=== PATIENT | male | born 1945 | race Caucasian/White ===

== ENCOUNTER → 2018-01-29 07:03 | Outpatient (CLI) | payer MEDICARE, SELFPAY ==
[2018-01-29 10:13] LABS: Absolute Lymphocyte Count 1.83 X10^3/ul (0.83-4.51); Absolute Neutrophil Count 4.4 X10^3/uL (2.0-7.7); Basophil# 0.03 X10^3/uL; Basophil% 0.4 % (0-1); Eosinophil# 0.14 X10^3/uL; Eosinophils% 1.9 % (0-5); Hematocrit 47.9 % (40-54); Hemoglobin 16.2 g/dl (13.0-16.5); Lymphocyte # 1.83 X10^3/ul (4.0); Lymphocyte % 25.3 % (19-41); Mean Corp Hgb Conc 33.8 g/gl (32-36); Mean Corpuscular Hgb 32.1 pg (27.0-32.0); Mean Platelet Vol. 12.4 fl (6.2-12.0); Monocyte# 0.82 X10^3/uL; Monocyte% 11.3 % (0-10); Neutrophil # 4.39 X10^3/uL (2.7-7.7); Neutrophil % 60.8 % (47-70); Platelet Count 173 K/mm3 (150-450); RBC Distribution Width CV 13.6 % (11.6-14.6); RBC Distribution Width SD 46.4 fl (35.1-43.9); Red Blood Count 5.04 M/mm3 (4.6-6.2); White Blood Count 7.2 K/mm3 (4.4-11.0)
[2018-01-29 10:17] LABS: POSITIVE COUNT NO; POSITIVE DIFFERENTIAL NO; POSITIVE MORPHOLOGY NO
[2018-01-29 10:25] LABS: Hemoglobin A1c 7.1 % (4.2-6.3)
[2018-01-29 10:26] LABS: Vitamin D,25 Hydroxy 30.2 ng/mL (29.95-100.01)
[2018-01-29 10:27] LABS: AST(SGOT) 29 U/L (15-37); Alanine Aminotransfer ALT/SGPT 45 U/L (16-61); Albumin, Serum 3.8 g/dL (3.2-5.0); Alkaline Phosphatase 54 U/L (45-117); Anion Gap 9 (5-15); BUN 16 mg/dL (7-18); BUN/Creat Ratio 15.7 RATIO (10-20); Calcium,Total 8.7 mg/dL (8.5-10.1); Chloride 105 mmol/L (98-107); Cholesterol 150 mg/dL (200); Creatinine, Serum 1.02 mg/dL (0.70-1.30); EST Glomerular Filtration Rate 76 mL/min (>60); Est Glom Filt Rate - Afr Amer 92 mL/min (>60); Globulin 3.7 g/dL (2.2-4.2); Glucose 146 mg/dL (74-106); High Density Lipoprotein 49 mg/dL; PSA,Total - Annual Screen 1.16 ng/mL (0.00-4.00); Potassium 4.3 mmol/L (3.5-5.1); Protein, Total 7.5 g/dL (6.4-8.2); Sodium Level 140 mmol/L (136-145); Thyroid Stim Hormone (TSH) 3.17 uIU/mL (0.358-3.74); Triglycerides 115 mg/dL; Very Low Density Lipoprotein 23 mg/dL (5-40)
[2018-01-29 10:35] LABS: Microalbumin,Random Urine 10.1 mg/L (NO RANGE EST.); Microalbumin:Creatinine Ratio 5.1 mg/g CRE (<30 mg/g CRE)
== END ==
PROVIDERS: Family Provider Internal Medicine; PCP Internal Medicine; Visit Provider Internal Medicine
DX: E11.9 Type 2 diabetes mellitus without complications (principal); I25.2 Old myocardial infarction; E78.5 Hyperlipidemia, unspecified; N40.0 Benign prostatic hyperplasia without lower urinary tract symptoms; E55.9 Vitamin D deficiency, unspecified; Z12.5 Encounter for screening for malignant neoplasm of prostate
CPT/HCPCS: 36415; 80053; 80061; 82043; 82306; 82570; 83036; 84153; 84443; 85025; G0103

== ENCOUNTER → 2018-08-21 06:51 | Outpatient (CLI) | payer MEDICARE, SELFPAY ==
[2018-08-21 07:51] LABS: Anion Gap 6 (5-15); BUN 20 mg/dL (7-18); BUN/Creat Ratio 19.8 RATIO (10-20); Calcium,Total 8.4 mg/dL (8.5-10.1); Chloride 107 mmol/L (98-107); Creatinine, Serum 1.01 mg/dL (0.70-1.30); EST Glomerular Filtration Rate 77 mL/min (>60); Est Glom Filt Rate - Afr Amer 93 mL/min (>60); Glucose 110 mg/dL (74-106); Sodium Level 140 mmol/L (136-145)
[2018-08-21 08:17] LABS: Hemoglobin A1c 6.6 % (4.2-6.3)
== END ==
PROVIDERS: Family Provider Internal Medicine; PCP Internal Medicine; Referring Provider Internal Medicine; Visit Provider Internal Medicine
DX: I10 Essential (primary) hypertension (principal); E11.9 Type 2 diabetes mellitus without complications
CPT/HCPCS: 36415; 80048; 83036

== ENCOUNTER → 2018-09-25 06:15 | Outpatient (CLI) | payer MEDICARE, SELFPAY ==
[2018-09-25 07:53] LABS: AST(SGOT) 31 U/L (15-37); Alanine Aminotransfer ALT/SGPT 38 U/L (16-61); Albumin, Serum 3.8 g/dL (3.2-5.0); Alkaline Phosphatase 53 U/L (45-117); Bilirubin, Direct 0.19 mg/dL (0.00-0.30); Cholesterol 155 mg/dL (200); Globulin 3.8 g/dL (2.2-4.2); High Density Lipoprotein 52 mg/dL; Protein, Total 7.6 g/dL (6.4-8.2); Triglycerides 102 mg/dL; Very Low Density Lipoprotein 20 mg/dL (5-40)
== END ==
PROVIDERS: Family Provider Internal Medicine; PCP Internal Medicine; Referring Provider Nurse Practitioner Family; Visit Provider Nurse Practitioner Family
DX: E78.5 Hyperlipidemia, unspecified (principal)
CPT/HCPCS: 36415; 80061; 80076

== ENCOUNTER → 2019-08-21 | Outpatient (CLI) | payer MEDICARE, SELFPAY ==
[2019-04-24 08:07] VITALS: BMI 31.8
[2019-08-21 12:41] LABS: Absolute Lymphocyte Count 1.78 X10^3/uL (0.83-4.51); Absolute Neutrophil Count 4.8 X10^3/uL (2.0-7.7); Basophil# 0.06 X10^3/uL; Basophil% 0.8 % (0-1); Eosinophil# 0.14 X10^3/uL; Eosinophils% 1.8 % (0-5); Hematocrit 47.8 % (40-54); Hemoglobin 15.5 g/dL (13.0-16.5); Lymphocyte # 1.78 X10^3/ul (4.0); Lymphocyte % 23.3 % (19-41); Mean Corp Hgb Conc 32.4 g/dL (32-36); Mean Corpuscular Hgb 31.8 pg (27.0-32.0); Mean Platelet Vol. 12.1 fl (6.2-12.0); Monocyte# 0.81 X10^3/uL; Monocyte% 10.6 % (0-10); NRBC Flagged by Analyzer 0 % (0-5); Neutrophil # 4.82 X10^3/uL (2.7-7.7); Neutrophil % 63.2 % (47-70); Platelet Count 167 K/mm3 (150-450); RBC Distribution Width CV 13.5 % (11.6-14.6); RBC Distribution Width SD 49.2 fl (35.1-43.9); Red Blood Count 4.88 M/mm3 (4.6-6.2); White Blood Count 7.6 K/mm3 (4.4-11.0)
[2019-08-21 13:06] LABS: ALB/GLOB Ratio 1.1 RATIO (0.9-2.4); AST(SGOT) 33 U/L (15-37); Alanine Aminotransfer ALT/SGPT 39 U/L (16-61); Albumin, Serum 3.8 g/dL (3.2-5.0); Alkaline Phosphatase 54 U/L (45-117); Anion Gap 5 (5-15); BUN 15 mg/dL (7-18); BUN/Creat Ratio 15.9 RATIO (10-20); Calcium,Total 9.1 mg/dL (8.5-10.1); Chloride 106 mmol/L (98-107); Cholesterol 161 mg/dL (200); Creatinine, Serum 0.94 mg/dL (0.70-1.30); EST Glomerular Filtration Rate 83 mL/min (>60); Est Glom Filt Rate - Afr Amer 100 mL/min (>60); Globulin 3.5 g/dL (2.2-4.2); Glucose 139 mg/dL (74-106); High Density Lipoprotein 50 mg/dL; Potassium 4.9 mmol/L (3.5-5.1); Protein, Total 7.3 g/dL (6.4-8.2); Sodium Level 140 mmol/L (136-145); Triglycerides 118 mg/dL; Very Low Density Lipoprotein 24 mg/dL (5-40)
[2019-08-21 13:11] LABS: Microalbumin,Random Urine 27.3 mg/L (NO RANGE EST.); Microalbumin:Creatinine Ratio 17.3 mg/g CRE (<30 mg/g CRE)
== END | disposition home or self-care (01) ==
PROVIDERS: Family Provider Internal Medicine; PCP Internal Medicine; Visit Provider Internal Medicine
DX: I10 Essential (primary) hypertension (principal); E11.9 Type 2 diabetes mellitus without complications; E78.5 Hyperlipidemia, unspecified
CPT/HCPCS: 36415; 80053; 80061; 82043; 82570; 85025

== ENCOUNTER → 2020-08-29 08:03 | Outpatient (CLI) | payer MEDICARE, SELFPAY ==
[2020-04-29 08:35] VITALS: BMI 31.9
[2020-08-29 12:46] LABS: Absolute Lymphocyte Count 1.61 X10^3/uL (0.83-4.51); Absolute Neutrophil Count 3.9 X10^3/uL (2.0-7.7); Basophil# 0.04 X10^3/uL; Basophil% 0.6 % (0-1); Eosinophil# 0.11 X10^3/uL; Eosinophils% 1.7 % (0-5); Hematocrit 45.1 % (40-54); Hemoglobin 14.8 g/dL (13.0-16.5); Lymphocyte # 1.61 X10^3/ul (4.0); Lymphocyte % 24.5 % (19-41); Mean Corp Hgb Conc 32.8 g/dL (32-36); Mean Corpuscular Hgb 31.9 pg (27.0-32.0); Mean Corpuscular Volume 97.2 fL (80-94); Mean Platelet Vol. 12.6 fl (6.2-12.0); Monocyte# 0.84 X10^3/uL; Monocyte% 12.8 % (0-10); NRBC Flagged by Analyzer 0 % (0-5); Neutrophil # 3.94 X10^3/uL (2.7-7.7); Neutrophil % 60.1 % (47-70); Platelet Count 189 K/mm3 (150-450); RBC Distribution Width CV 13.6 % (11.6-14.6); RBC Distribution Width SD 48.9 fl (35.1-43.9); Red Blood Count 4.64 M/mm3 (4.6-6.2); White Blood Count 6.6 K/mm3 (4.4-11.0)
[2020-08-29 13:15] LABS: Vitamin D,25 Hydroxy 46.2 ng/mL
[2020-08-29 13:27] LABS: ALB/GLOB Ratio 0.9 RATIO (0.9-2.4); AST(SGOT) 33 U/L (15-37); Alanine Aminotransfer ALT/SGPT 47 U/L (16-61); Albumin, Serum 3.7 g/dL (3.2-5.0); Alkaline Phosphatase 55 U/L (45-117); Anion Gap 5 (5-15); BUN 20 mg/dL (7-18); BUN/Creat Ratio 18.7 RATIO (10-20); Calcium,Total 9.3 mg/dL (8.5-10.1); Chloride 107 mmol/L (98-107); Cholesterol 157 mg/dL (200); Creatinine, Serum 1.07 mg/dL (0.70-1.30); EST Glomerular Filtration Rate 71 mL/min (>60); Est Glom Filt Rate - Afr Amer 86 mL/min (>60); Globulin 3.9 g/dL (2.2-4.2); Glucose 139 mg/dL (74-106); High Density Lipoprotein 54 mg/dL; PSA,Total - Annual Screen 1.64 ng/mL (0.00-4.00); Potassium 4.5 mmol/L (3.5-5.1); Protein, Total 7.6 g/dL (6.4-8.2); Sodium Level 139 mmol/L (136-145); Triglycerides 119 mg/dL; Very Low Density Lipoprotein 24 mg/dL (5-40)
== END ==
PROVIDERS: PCP Internal Medicine; Referring Provider Internal Medicine; Visit Provider Internal Medicine
DX: E11.9 Type 2 diabetes mellitus without complications (principal); E55.9 Vitamin D deficiency, unspecified; N40.0 Benign prostatic hyperplasia without lower urinary tract symptoms; Z12.5 Encounter for screening for malignant neoplasm of prostate
CPT/HCPCS: 36415; 80053; 80061; 82306; 84153; 85025; G0103

== ENCOUNTER → 2021-05-04 15:00 | Outpatient (CLI) | payer MEDICARE, SELFPAY ==
[2021-05-04 14:25] VITALS: BMI 31.3
--- NOTE | 2021-05-04 15:20 | RAD_ITS ---
STUDY: X-RAY - LEFT FOOT CLINICAL: Male, 75 years old. BILATERAL FOOT PAIN TECHNIQUE: 3 view(s) of the foot. COMPARISON: None. FINDINGS: Normal talus, calcaneus, and tarsal bones. Normal visualized subtalar, talonavicular, calcaneocuboid, tarsal and tarsometatarsal articulations. Normal metatarsi. 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 There is a bipartite fibula sesamoid. Normal interphalangeal joint of the great toe. Normal phalanges of the great toe. Normal second through fifth metatarsophalangeal joints. Normal interphalangeal joints and phalanges of the lesser toes. Vascular calcification. RAD/Foot min 3 Views IMPRESSION: Degenerative changes of the first metatarsophalangeal joint. Electronically Signed: Kyle Neff MD at 9:09 EDT , Service support ,
--- NOTE | 2021-05-04 15:20 | RAD_ITS ---
STUDY: X-RAY - RIGHT FOOT CLINICAL: Male, 75 years old. Bilateral Foot Pain TECHNIQUE: 3 view(s) of the foot. COMPARISON: None. FINDINGS: Normal talus, calcaneus, and tarsal bones. Normal visualized subtalar, talonavicular, calcaneocuboid, tarsal and tarsometatarsal articulations. Normal metatarsi. Normal metatarsophalangeal joint of the great toe. Normal tibial and fibular sesamoid bones. Normal interphalangeal joint of the great toe. Normal phalanges of the great toe. Normal second through fifth metatarsophalangeal joints. Normal interphalangeal joints and phalanges of the lesser toes. The soft tissue structures are unremarkable. RAD/Foot min 3 Views IMPRESSION: Normal x-ray examination of the foot. Electronically Signed: Kyle Neff MD at 9:09 EDT , Service support ,
[2021-05-04 16:41] LABS: Absolute Lymphocyte Count 1.79 X10^3/uL (0.83-4.51); Absolute Neutrophil Count 6.3 X10^3/uL (2.0-7.7); Basophil# 0.05 X10^3/uL; Basophil% 0.5 % (0-1); Eosinophil# 0.14 X10^3/uL; Eosinophils% 1.5 % (0-5); Hematocrit 45.3 % (40-54); Lymphocyte # 1.79 X10^3/ul (0.83-4.51); Mean Corp Hgb Conc 33.1 g/dL (32-36); Mean Corpuscular Hgb 32.1 pg (27.0-32.0); Mean Corpuscular Volume 96.8 fL (80-94); Mean Platelet Vol. 12.1 fl (6.2-12.0); Monocyte# 1.09 X10^3/uL; Monocyte% 11.6 % (0-10); NRBC Flagged by Analyzer 0 % (0-5); Neutrophil # 6.33 X10^3/uL (2.7-7.7); Neutrophil % 67.1 % (47-70); Platelet Count 193 K/mm3 (150-450); RBC Distribution Width CV 13.2 % (11.6-14.6); RBC Distribution Width SD 46.5 fl (35.1-43.9); Red Blood Count 4.68 M/mm3 (4.6-6.2); White Blood Count 9.4 K/mm3 (4.4-11.0)
[2021-05-04 16:53] LABS: AST(SGOT) 31 U/L (15-37); Alanine Aminotransfer ALT/SGPT 39 U/L (16-61); Albumin, Serum 3.8 g/dL (3.2-5.0); Alkaline Phosphatase 65 U/L (45-117); Anion Gap 6 (5-15); BUN 16 mg/dL (7-18); BUN/Creat Ratio 17.7 RATIO (10-20); Calcium,Total 9.3 mg/dL (8.5-10.1); Chloride 103 mmol/L (98-107); EST Glomerular Filtration Rate 87 mL/min (>60); Est Glom Filt Rate - Afr Amer 105 mL/min (>60); Globulin 3.8 g/dL (2.2-4.2); Glucose 113 mg/dL (74-106); Potassium 4.5 mmol/L (3.5-5.1); Protein, Total 7.6 g/dL (6.4-8.2); Sodium Level 138 mmol/L (136-145)
== END ==
PROVIDERS: PCP Internal Medicine; Referring Provider Internal Medicine; Visit Provider Internal Medicine
DX: I10 Essential (primary) hypertension (principal); E11.9 Type 2 diabetes mellitus without complications; M79.671 Pain in right foot; M79.672 Pain in left foot
CPT/HCPCS: 36415; 73630; 80053; 85025

== ENCOUNTER 2021-07-23 07:18 | Emergency (ER) | payer MEDICARE, SELFPAY ==
[2021-07-23 07:18] VITALS: BP 131/98; PULSE 66; RESP 14; TEMP 36.6; O2SAT 98; BMI 30.7
--- NOTE | 2021-07-23 07:35 | EDS_ITS ---
HPI History of Present Illness Chief Complaint: Other, Pain/Inj Informant: patient and spouse/S.O. Narrative Narrative: 75-year-old male presents the emergency department for the evaluation of atraumatic neck pain. Patient states symptoms began on Saturday evening and progressively worsened. He notes painful range of motion of the neck. He notes pain on the left side of his neck just below his ear with swallowing. He denies any sore throat. Denies any ear drainage. No dry mouth. No dental pain. He denies any neurologic symptoms. He denies any infectious symptoms. [facility] Medical History Atherosclerosis of coronary artery of [place] heart without angina pectoris Bilateral foot pain Essential (primary) hypertension history left shoulder surgery Hyperlipemia Old inferior wall myocardial infarction Type 2 diabetes mellitus Type 2 diabetes mellitus Home Medications aspirin 81 mg PO DAILY 07/27/14 [History Last Taken 07/28/14] multivitamin with folic acid 1 tab PO DAILY 07/27/14 [History Last Taken 07/28/14] nitroglycerin 0.4 mg SUBLINGUAL PRN PRN 07/27/14 [History Last Taken Unknown] cholecalciferol (vitamin D3) 50 mcg (2,000 unit) capsule 2,000 unit PO ONCE 11/27/17 [History Last Taken Unknown] coenzyme Q10 200 mg capsule 200 mg PO ONCE 11/27/17 [History Last Taken Unknown] metformin 500 mg tablet,extended release 24 hr 1,000 mg PO QPM 90 Days #180 tab 12/06/20 [Rx Last Taken Unknown] atorvastatin 40 mg tablet 40 mg PO QHS #90 tab 12/30/20 [Rx Last Taken Unknown] metoprolol succinate 50 mg tablet,extended release 24 hr 50 mg PO DAILY #90 tab 12/30/20 [Rx Last Taken Unknown] ramipril 2.5 mg capsule 2.5 mg PO DAILY #90 cap 12/30/20 [Rx Last Taken Unknown] diazepam 2 mg PO TID PRN PRN #10 tablet 07/23/21 [Rx Last Taken Unknown] Allergy/AdvReac Type Severity Reaction Status Date / Time No Known Allergies Allergy Verified 07/23/21 07:20 Family History Mother Colon cancer Father Diabetes Brother Diabetes Surgical History History of appendectomy History of back surgery History of coronary angioplasty (07/01/90) History of knee surgery History of left heart catheterization (07/28/14) History of tonsillectomy right eye surgery Social History Smoking Status: Former smoker how long ago did patient quit smokin alcohol intake: current alcohol intake frequency: a few times a month Alcohol type: beer and wine substance use type: does not use what type of physical activity do you participate in: walking frequency: 3-4 times per week ROS ROS ED Constitutional Constitutional ED: Denies chills or weight loss Eyes Eyes: Denies change in vision or diplopia ENT ENT ED: Denies ear pain, rhinorrhea or sore throat Cardiovascular Cardiovascular: Denies chest pain, orthopnea, palpitations or racing heartbeat Respiratory/Chest Respiratory/Chest: Denies cough, dyspnea or orthopnea Gastrointestinal Gastrointestinal: Denies abdominal pain, diarrhea, nausea or vomiting Genitourinary Genitourinary ED: Denies dysuria, hematuria or urinary frequency Musculoskeletal Musculoskeletal: Reports neck pain; Denies arthralgias or myalgias Integumentary Denies abscess or rash Neurologic Neurologic: Denies headache(s) or weakness Psychiatric Psychiatric: Denies anxiety, depression, suicidal ideation or suicidal thoughts Endocrine Endocrinology: Denies polydipsia, polyphagia or polyuria Allergic/Immunologic Allergic/Immunologic ED: Denies mouth swelling, tongue swelling or urticaria EXAM Physical Exam Const Vital Signs: 07/23/21 07:18 Temperature 97.8 F Temperature Source Temporal Pulse Rate 66 Respiratory Rate 14 Blood Pressure 131/98 H Blood Pressure Mean 109 Pulse Ox 98 Oxygen Delivery Method Room Air Positive well nourished and well developed General Appearance ED: well developed HEENT Reports normocephalic, head/scalp atraumatic and moist mucous membranes HEENT Narrative: Oropharyngeal exam appears normal. There is no tenderness or swelling palpated along the mandible. Patient has very focal tenderness near the proximal left SCM and scalene musculature. He has very focal tenderness along the scalenes down towards the first rib. He has painful range of motion. There is no palpable masses. No erythema. Eyes PERRL and EOMs intact bilaterally Neck no lymphadenopathy, supple and no JVD Resp normal respiratory effort and clear to auscultation bilaterally Cardio regular rate, regular rhythm and no murmurs GI normal to inspection, nondistended, normoactive bowel sounds and non-tender Palpation: soft Back/Spine no CVA tenderness and normal ROM Extremity normal to inspection General Extremety ED: Negative for edema General Extremity: Negative for edema Neuro oriented x3 and CN's II-XII intact bilaterally Sensorium / Orientation: alert Motor Exam: strength 5/5 throughout Psych mental status grossly normal Mood & Affect: Negative for depressed or tearful Skin no rashes or lesions noted and no wounds MDM MDM MDM Narrative Medical decision making narrative: Patient appears to be having cervical muscle spasm. Would recommend soft collar some anti-inflammatories heat and rest. We can add in some low-dose Valium. Would recommend follow-up with primary care if not improving return if worsening or concerns Discharge Plan Triage Chief Complaint: Other, Pain/Inj ED Provider: Antoni Sifuentes Dx/Rx/DC Orders Clinical Impression: Cervical paraspinal muscle spasm Instructions: ED Neck Spasm, No Trauma Prescriptions: New diazepam [diazepam] 2 MG tablet 2 mg PO TID PRN PRN (Reason: Spasms) Qty: 10 RF: 0 No Action coenzyme Q10 [Co Q-10] 200 mg capsule 200 mg PO ONCE RF: 0 cholecalciferol (vitamin D3) 2,000 unit capsule 2,000 unit PO ONCE RF: 0 aspirin 81 MG tablet,delayed release (DR/EC) 81 mg PO DAILY RF: 0 nitroglycerin 0.4 MG tablet 0.4 mg SUBLINGUAL PRN PRN (Reason: Angina) RF: 0 multivitamin with folic acid 1 TABLET tablet 1 tab PO DAILY RF: 0 metformin 500 mg tablet extended release 24 hr 1,000 mg PO QPM 90 Days Qty: 180 RF: 3 metoprolol succinate 50 mg tablet extended release 24 hr 50 mg PO DAILY Qty: 90 RF: 3 atorvastatin 40 mg tablet 40 mg PO QHS Qty: 90 RF: 3 ramipril 2.5 mg capsule 2.5 mg PO DAILY Qty: 90 RF: 3 Primary Care Provider: Ezequiel Yoo Referrals: Ezequiel Yoo MD [Primary Care Provider] - 1 Week if not improving Disposition Disposition: Home, Self Care
--- NOTE | 2021-07-23 08:03 | ED.RN ---
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
== END 2021-07-23 08:46 | disposition home or self-care (01) ==
LOC: ED 07:40
PROVIDERS: Emergency Provider Emergency Medicine; PCP Internal Medicine
DX: M62.838 Other muscle spasm (principal); I25.10 Atherosclerotic heart disease of native coronary artery without angina pectoris; E11.9 Type 2 diabetes mellitus without complications; E78.5 Hyperlipidemia, unspecified; I10 Essential (primary) hypertension; I25.2 Old myocardial infarction; Z79.82 Long term (current) use of aspirin; Z79.84 Long term (current) use of oral hypoglycemic drugs; Z87.891 Personal history of nicotine dependence; Z79.899 Other long term (current) drug therapy
CPT/HCPCS: 99282

== ENCOUNTER 2021-11-24 08:04 | Outpatient (CLI) | payer MEDICARE, SELFPAY ==
[2021-11-24 09:22] LABS: AST(SGOT) 28 U/L (15-37); Alanine Aminotransfer ALT/SGPT 39 U/L (16-61); Albumin, Serum 3.5 g/dL (3.2-5.0); Alkaline Phosphatase 56 U/L (45-117); Bilirubin, Direct 0.16 mg/dL (0.00-0.30); Cholesterol 148 mg/dL (200); High Density Lipoprotein 50 mg/dL; Protein, Total 7.5 g/dL (6.4-8.2); Triglycerides 108 mg/dL; Very Low Density Lipoprotein 22 mg/dL (5-40)
== END 2021-11-24 23:59 | disposition short-term general hospital (02) ==
LOC: LAB 08:08
PROVIDERS: PCP Internal Medicine; Referring Provider Nurse Practitioner Gerontology; Visit Provider Nurse Practitioner Gerontology
DX: E78.5 Hyperlipidemia, unspecified (principal)
CPT/HCPCS: 36415; 80061; 80076

== ENCOUNTER 2021-11-29 08:39 | Outpatient (CLI) | payer MEDICARE, SELFPAY ==
[2021-11-29 12:33] LABS: Anion Gap 8 (5-15); BUN 18 mg/dL (7-18); BUN/Creat Ratio 17.5 RATIO (10-20); Calcium,Total 9.4 mg/dL (8.5-10.1); Chloride 102 mmol/L (98-107); Creatinine, Serum 1.03 mg/dL (0.70-1.30); EST Glomerular Filtration Rate 74 mL/min (>60); Est Glom Filt Rate - Afr Amer 90 mL/min (>60); Glucose 150 mg/dL (74-106); PSA,Total - Annual Screen 1.41 ng/mL (0.00-4.00); Potassium 4.9 mmol/L (3.5-5.1); Sodium Level 139 mmol/L (136-145)
[2021-11-29 12:49] LABS: Microalbumin,Random Urine 17.7 mg/L (NO RANGE EST.); Microalbumin:Creatinine Ratio 9.9 mg/g CRE (<30 mg/g CRE)
== END 2021-11-29 23:59 | disposition short-term general hospital (02) ==
LOC: BIMLAB 08:40
PROVIDERS: PCP Internal Medicine; Referring Provider Internal Medicine; Visit Provider Internal Medicine
DX: E11.9 Type 2 diabetes mellitus without complications (principal); I10 Essential (primary) hypertension; N40.0 Benign prostatic hyperplasia without lower urinary tract symptoms; Z12.5 Encounter for screening for malignant neoplasm of prostate
CPT/HCPCS: 36415; 80048; 82043; 82570; 84153; G0103

== ENCOUNTER → 2022-05-30 | Outpatient (CLI) | payer MEDICARE, SELFPAY ==
[2022-05-30 12:28] LABS: Absolute Lymphocyte Count 1.59 X10^3/uL (0.83-4.51); Absolute Neutrophil Count 3.1 X10^3/uL (2.0-7.7); Basophil# 0.05 X10^3/uL; Basophil% 0.9 % (0-1); Eosinophil# 0.13 X10^3/uL; Eosinophils% 2.3 % (0-5); Hematocrit 44.3 % (40-54); Hemoglobin 14.6 g/dL (13.0-16.5); Lymphocyte # 1.59 X10^3/ul (0.83-4.51); Lymphocyte % 28.2 % (19-41); Mean Corpuscular Hgb 32.2 pg (27.0-32.0); Mean Corpuscular Volume 97.8 fL (80-94); Mean Platelet Vol. 11.7 fl (6.2-12.0); Monocyte# 0.77 X10^3/uL; Monocyte% 13.7 % (0-10); NRBC Flagged by Analyzer 0 % (0-5); Neutrophil # 3.08 X10^3/uL (2.7-7.7); Neutrophil % 54.5 % (47-70); Platelet Count 169 K/mm3 (150-450); RBC Distribution Width CV 13.2 % (11.6-14.6); RBC Distribution Width SD 47.5 fl (35.1-43.9); Red Blood Count 4.53 M/mm3 (4.6-6.2); White Blood Count 5.6 K/mm3 (4.4-11.0)
[2022-05-30 12:47] LABS: Anion Gap 5 (5-15); BUN 17 mg/dL (7-18); BUN/Creat Ratio 17.2 RATIO (10-20); Calcium,Total 9.3 mg/dL (8.5-10.1); Chloride 103 mmol/L (98-107); Creatinine, Serum 0.99 mg/dL (0.70-1.30); EST Glomerular Filtration Rate 78 mL/min (>60); Est Glom Filt Rate - Afr Amer 94 mL/min (>60); Glucose 208 mg/dL (74-106); Potassium 4.9 mmol/L (3.5-5.1); Sodium Level 137 mmol/L (136-145)
[2022-05-30 13:15] LABS: AST(SGOT) 38 U/L (15-37); Alanine Aminotransfer ALT/SGPT 41 U/L (16-61); Albumin, Serum 3.8 g/dL (3.2-5.0); Alkaline Phosphatase 53 U/L (45-117); Bilirubin, Direct 0.12 mg/dL (0.00-0.30); Cholesterol 144 mg/dL (200); Globulin 3.6 g/dL (2.2-4.2); High Density Lipoprotein 44 mg/dL; Protein, Total 7.4 g/dL (6.4-8.2); Triglycerides 179 mg/dL; Very Low Density Lipoprotein 36 mg/dL (5-40)
== END | disposition home or self-care (01) ==
LOC: BIMLAB 08:50
PROVIDERS: Nurse Practitioner Family; PCP Internal Medicine; Referring Provider Internal Medicine; Visit Provider Internal Medicine
DX: I10 Essential (primary) hypertension (principal); E11.9 Type 2 diabetes mellitus without complications; E78.00 Pure hypercholesterolemia, unspecified
CPT/HCPCS: 36415; 80048; 80061; 80076; 85025

== ENCOUNTER 2022-06-05 20:58 | Observation (INO) | payer MEDICARE, SELFPAY ==
[2022-06-05] VITALS (10 sets, daily range): BP systolic 111–138; BP diastolic 66–94; PULSE 70–92; RESP 18–36; TEMP 36.5–37.6; O2SAT 77–96; BMI 31.1
--- NOTE | 2022-06-05 21:27 | EDS_ITS ---
HPI History of Present Illness Chief Complaint: Shortness of Breath Narrative Narrative: Male presenting with symptoms of COVID-19. He tested positive yesterday at home. Patient states he started feeling sick on Saturday. He has a low-grade fever of just over 101 at home. He is taking Tylenol and ibuprofen. He states he has a sore throat, cough. He denies chest pain. He does have shortness of breath which is worse with exertion. He has history of CAD, hyperlipidemia, hypertension, diabetes. Denies loss of taste or smell. Patient was vaccinated and had 1 booster for COVID-19 [facility] Medical History Atherosclerosis of coronary artery of [place] heart without angina pectoris Bilateral foot pain Essential (primary) hypertension history left shoulder surgery Hyperlipemia Old inferior wall myocardial infarction Type 2 diabetes mellitus Type 2 diabetes mellitus Home Medications aspirin 81 mg tablet,delayed release 81 mg PO DAILY 07/27/14 [History Last Taken 07/28/14] multivitamin with folic acid 400 mcg tablet 1 tab PO DAILY 07/27/14 [History Last Taken 07/28/14] cholecalciferol (vitamin D3) 50 mcg (2,000 unit) capsule 2,000 unit PO ONCE 11/27/17 [History Last Taken Unknown] coenzyme Q10 200 mg capsule (Co Q-10) 200 mg PO ONCE 11/27/17 [History Last Taken Unknown] nitroglycerin 0.4 mg sublingual tablet 0.4 mg sublingual PRN PRN Angina #25 tabs 11/01/21 [Rx Last Taken Unknown] metformin 500 mg tablet,extended release 24 hr 1,000 mg PO QPM 3 months #180 tabs 12/20/21 [Rx Last Taken Unknown] metoprolol succinate 50 mg tablet,extended release 24 hr 50 mg PO DAILY #90 tabs 12/20/21 [Rx Last Taken Unknown] atorvastatin 40 mg tablet 40 mg PO QHS #90 tabs 02/20/22 [Rx Last Taken Unknown] ramipril 2.5 mg capsule 2.5 mg PO DAILY #90 caps 03/30/22 [Rx Last Taken Unknown] Allergy/AdvReac Type Severity Reaction Status Date / Time No Known Allergies Allergy Verified 05/30/22 08:21 Family History Mother Colon cancer Father Diabetes Brother Diabetes Surgical History History of appendectomy History of back surgery History of coronary angioplasty (07/01/90) History of knee surgery History of left heart catheterization (07/28/14) History of tonsillectomy right eye surgery Social History Smoking Status: Former smoker how long ago did patient quit smokin alcohol intake: current alcohol intake frequency: a few times a month Alcohol type: beer and wine substance use type: does not use what type of physical activity do you participate in: walking frequency: 3-4 times per week ROS ROS ED Constitutional Constitutional ED: Denies chills or fever(s) Eyes Eyes: Denies change in vision ENT ENT ED: Denies rhinorrhea or sore throat Cardiovascular Cardiovascular: Denies chest pain or palpitations Respiratory/Chest Respiratory/Chest: Reports cough, dyspnea and dyspnea on exertion Gastrointestinal Gastrointestinal: Denies abdominal pain or constipation Genitourinary Genitourinary ED: Denies dysuria or hematuria Musculoskeletal Musculoskeletal: Denies arthralgias or back pain Integumentary Denies abscess Neurologic Neurologic: Denies headache(s) or paresthesias Psychiatric Psychiatric: Denies anxiety or depression EXAM Physical Exam Const Vital Signs: 06/05/22 20:59 06/05/22 21:02 06/05/22 21:20 Temperature 98.5 F 98.5 F Temperature Source Temporal Temporal Pulse Rate 92 92 Respiratory Rate 18 18 Respiratory Effort Short of Breath Respiratory Depth Deep Respiratory Pattern Normal Blood Pressure 122/94 H 122/94 H Blood Pressure Mean 103 103 Pulse Ox 93 93 Oxygen Delivery Method Room Air Room Air Room Air Oxygen Flow Rate (L/min) 06/05/22 22:00 06/05/22 22:05 06/05/22 22:08 Temperature Temperature Source Pulse Rate 81 Respiratory Rate 36 H Respiratory Effort Respiratory Depth Respiratory Pattern Blood Pressure 115/66 Blood Pressure Mean 82 Pulse Ox 90 88 96 Oxygen Delivery Method Room Air Room Air Nasal Cannula Oxygen Flow Rate (L/min) 2 06/05/22 22:02 Temperature 99.5 F H Temperature Source Temporal Pulse Rate 70 Respiratory Rate 21 H Respiratory Effort Respiratory Depth Respiratory Pattern Blood Pressure 119/74 Blood Pressure Mean 89 Pulse Ox 77 Oxygen Delivery Method Nasal Cannula Oxygen Flow Rate (L/min) 2 General Appearance ED: NAD; Negative for pallor HEENT Reports moist mucous membranes atraumatic Eyes PERRL Neck no lymphadenopathy Resp normal respiratory effort and clear to auscultation bilaterally Cardio regular rate and regular rhythm GI non-tender and non-distended Extremity normal to inspection Neuro oriented x3 and CN's II-XII intact bilaterally Motor Exam: strength 5/5 throughout Psych mental status grossly normal Thought Process: normal thought process Skin no wounds General Skin Exam: Negative for jaundice or pallor MDM MDM MDM Narrative Medical decision making narrative: Patient positive for COVID yesterday. Has had symptoms for 3 days. He denies chest pain but does have shortness of breath. He is well-appearing in the bed and does not appear to be in any distress. I ambulated him without oxygen he drops to 90% on room air and he is symptomatic and more dyspneic. Afterwards his pulse ox dropped down to 77 and then back up to 88. He is on 2 L of oxygen currently. He had an at home test for COVID-19 so I will repeat this so to be documented as positive. Blood work was obtained and his CBC shows no leukocytosis. Hemoglobin hematocrit are stable. Platelets normal. Electrolytes and creatinine are normal. Glucose slightly elevated at 158 without anion gap. LFTs within normal limits. High-sensitivity troponin is 6. Chest x-ray on my interpretation shows no acute cardiopulmonary process and radiologist agree. Since patient's D-dimer is elevated today I did obtain a CTA which is pending. Patient was discussed with the hospitalist for admission due to his hypoxia. Impression: 1. COVID-19 2. Hypoxic respiratory failure Lab Data Attestation: I reviewed the patient's lab results. Labs: Laboratory Results - last 24 hr 06/05/22 06/05/22 06/05/22 21:39 21:39 21:39 WBC 8.5 RBC 4.73 Hgb 15.2 Hct 45.8 MCV 96.8 H MCH 32.1 H MCHC 33.2 RDW Std Deviation 48.1 H RDW Coeff of Ana 13.3 Plt Count 160 MPV 11.5 Immature Gran % (Auto) 0.400 Neut % (Auto) 65.5 Lymph % (Auto) 14.7 L [place] % (Auto) 18.3 H Eos % (Auto) 0.6 Baso % (Auto) 0.5 Absolute Neuts (auto) 5.6 Absolute Lymphs (auto) 1.25 Nucleated RBC % 0 Differential Comment SEE COMMENT Platelet Estimate ADEQUATE RBC Morphology N CHROM Anisocytosis RARE Macrocytosis RARE D-Dimer Quant (PE/DVT) 1.13 H* Sodium 137 Potassium 4.2 Chloride 103 Carbon Dioxide 27.0 Anion Gap 7 BUN 14 Creatinine 1.00 Estim Creat Clear Calc 54.94 Est GFR (MDRD) Af Amer 93 Est GFR (MDRD) Non-Af 77 BUN/Creatinine Ratio 14.0 Glucose 158 H Calcium 9.2 Total Bilirubin 0.50 AST 31 ALT 45 Alkaline Phosphatase 57 Troponin I High Sens 6 Total Protein 7.8 Albumin 3.7 Globulin 4.1 Albumin/Globulin Ratio 0.9 Procalcitonin 06/05/22 21:39 WBC RBC Hgb Hct MCV MCH MCHC RDW Std Deviation RDW Coeff of Ana Plt Count MPV Immature Gran % (Auto) Neut % (Auto) Lymph % (Auto) [place] % (Auto) Eos % (Auto) Baso % (Auto) Absolute Neuts (auto) Absolute Lymphs (auto) Nucleated RBC % Differential Comment Platelet Estimate RBC Morphology Anisocytosis Macrocytosis D-Dimer Quant (PE/DVT) Sodium Potassium Chloride Carbon Dioxide Anion Gap BUN Creatinine Estim Creat Clear Calc Est GFR (MDRD) Af Amer Est GFR (MDRD) Non-Af BUN/Creatinine Ratio Glucose Calcium Total Bilirubin AST ALT Alkaline Phosphatase Troponin I High Sens Total Protein Albumin Globulin Albumin/Globulin Ratio Procalcitonin 0.07 Radiography Diagnostic Testing: Clinical Impression(s) from Imaging Studies Chest X-Ray 06/05/22 22:20 IMPRESSION: 1. No acute cardiopulmonary disease. 2. Degenerative/posttraumatic and surgical changes bilateral shoulders. Electronically Signed: Dar Johnson DO at 23:18 EDT , Discharge Plan Triage Chief Complaint: Shortness of Breath ED Provider: Vinod Strong Dx/Rx/DC Orders Prescriptions: No Action coenzyme Q10 [Co Q-10] 200 mg capsule 200 mg PO ONCE cholecalciferol (vitamin D3) 2,000 unit capsule 2,000 unit PO ONCE nitroglycerin 0.4 mg tablet, sublingual 0.4 mg SUBLINGUAL PRN PRN (Reason: Angina) Qty: 25 1RF aspirin 81 MG tablet,delayed release (DR/EC) 81 mg PO DAILY multivitamin with folic acid 1 TABLET tablet 1 tab PO DAILY metformin 500 mg tablet extended release 24 hr 1,000 mg PO QPM 90 Days Qty: 180 3RF metoprolol succinate 50 mg tablet extended release 24 hr 50 mg PO DAILY Qty: 90 3RF atorvastatin 40 mg tablet 40 mg PO QHS Qty: 90 3RF ramipril 2.5 mg capsule 2.5 mg PO DAILY Qty: 90 3RF Primary Care Provider: Ezequiel Yoo Referrals: Ezequiel Yoo MD [Primary Care Provider] -
[2022-06-05 21:52] LABS: Absolute Lymphocyte Count 1.25 X10^3/uL (0.83-4.51); Absolute Neutrophil Count 5.6 X10^3/uL (2.0-7.7); Basophil# 0.04 X10^3/uL; Basophil% 0.5 % (0-1); Eosinophil# 0.05 X10^3/uL; Eosinophils% 0.6 % (0-5); Hematocrit 45.8 % (40-54); Hemoglobin 15.2 g/dL (13.0-16.5); Lymphocyte # 1.25 X10^3/ul (0.83-4.51); Lymphocyte % 14.7 % (19-41); Mean Corp Hgb Conc 33.2 g/dL (32-36); Mean Corpuscular Hgb 32.1 pg (27.0-32.0); Mean Corpuscular Volume 96.8 fL (80-94); Mean Platelet Vol. 11.5 fl (6.2-12.0); Monocyte# 1.56 X10^3/uL; Monocyte% 18.3 % (0-10); NRBC Flagged by Analyzer 0 % (0-5); Neutrophil # 5.59 X10^3/uL (2.7-7.7); Neutrophil % 65.5 % (47-70); POSITIVE DIFFERENTIAL YES; Platelet Count 160 K/mm3 (150-450); RBC Distribution Width CV 13.3 % (11.6-14.6); RBC Distribution Width SD 48.1 fl (35.1-43.9); Red Blood Count 4.73 M/mm3 (4.6-6.2); White Blood Count 8.5 K/mm3 (4.4-11.0)
[2022-06-05 22:08] LABS: D-Dimer Quantitative (DVT/PE) 1.13 FEU/ug/m (0.27-0.49)
--- NOTE | 2022-06-05 22:08 | ED.RN ---
Pt O2 fluctuating between 88-92%. Placed on 2L NC, brought up to 95%. Dr. Strong notified.
[2022-06-05 22:10] LABS: ALB/GLOB Ratio 0.9 RATIO (0.9-2.4); AST(SGOT) 31 U/L (15-37); Alanine Aminotransfer ALT/SGPT 45 U/L (16-61); Albumin, Serum 3.7 g/dL (3.2-5.0); Alkaline Phosphatase 57 U/L (45-117); Anion Gap 7 (5-15); BUN 14 mg/dL (7-18); Calcium,Total 9.2 mg/dL (8.5-10.1); Chloride 103 mmol/L (98-107); EST Glomerular Filtration Rate 77 mL/min (>60); Est Glom Filt Rate - Afr Amer 93 mL/min (>60); Estimated Creatinine Clearance 54.94 ml/min; Globulin 4.1 g/dL (2.2-4.2); Glucose 158 mg/dL (74-106); Potassium 4.2 mmol/L (3.5-5.1); Protein, Total 7.8 g/dL (6.4-8.2); Sodium Level 137 mmol/L (136-145); Troponin-I HS 6 pg/mL (3.0-78.0)
--- NOTE | 2022-06-05 22:13 | CT_ITS ---
STUDY: CTA CHEST REASON FOR EXAM: Male, 76 years old. hypoxia RADIATION DOSAGE (If Supplied By Facility): CTDIvol = ( 9.88 ) mGy, DLP = ( 492.84 ) mGycm TECHNIQUE: The examination was performed with the intravenous administration of IV 100mL Isovue-370. Post-processing of the angiographic images was performed, with multiplanar reformation and 3D reconstruction. Individualized dose optimization techniques were used for this CT. COMPARISON: None. FINDINGS: Adequate density of contrast in the pulmonary arteries and no significant motion; diagnostic exam. No pulmonary artery filling defect to suggest pulmonary embolism. There is no evidence of right heart strain. Normal size heart. No pericardial fluid. No mediastinal or hilar lymphadenopathy. There are numerous hilar calcifications. No noncalcified lymphadenopathy. Central airway is without mass or filling defect. No bronchiectasis. No peribronchial thickening. Normal lung volumes without airtrapping. No airspace opacity or abnormal interstitial pattern. No solid nodule or mass. No pleural effusion or pneumothorax. There are multiple pulmonary calcified granulomas. There is some bilateral dependent atelectasis. Right and left thyroid lobe and isthmus hypodense nodules. No axillary lymphadenopathy. Visualized base of the neck and chest are otherwise within normal limits. No fracture or focal osseous lesion. Moderately advanced degenerative disc and endplate changes lower thoracic spine and thoracolumbar junction. Splenic and hepatic punctate calcifications CT/CTA Chest W/WO Contrast IMPRESSION: No pulmonary embolism. No evidence of acute cardiopulmonary disease. Stigmata of prior granulomatous infection. Homogenous, hypodense thyroid nodules most likely benign. Correlate clinically and consider thyroid ultrasound. Extensive coronary artery calcifications may be indicative of acute increased risk for acute coronary syndrome. Electronically Signed: Dar Johnson DO at 23:39 EDT ,
[2022-06-05 22:15] LABS: Differential Indicated SCAN CRITERIA MET; Procalcitonin 0.07 ng/mL (0.00-0.09)
[2022-06-05 22:17] LABS: Anisocytosis RARE; Macrocytosis RARE; Platelet Estimate ADEQUATE (ADEQ); Red Cell Morphology N CHROM NORMAL (NORM C&C)
--- NOTE | 2022-06-05 22:20 | RAD_ITS ---
INDICATION: cough EXAMINATION/TECHNIQUE: X-RAY - XR Chest 1 View COMPARISON: 07/20/2014 chest x-ray FINDINGS: LINES/DEVICES: None. LUNGS: Symmetric normal lung volumes. No airspace opacity or abnormal interstitial pattern. No nodule or mass. No pleural effusion or pneumothorax. MEDIASTINUM AND CARDIOVASCULAR STRUCTURES: Normal size and contour of the cardiomediastinal silhouette. No evidence of pulmonary vascular congestion. BONES AND SOFT TISSUES: Likely old Hill-Sachs lesion right humeral head. Small osseous fragment along the inferior aspect of the glenoid, on the right. Anchoring screw left greater tuberosity region. RAD/Chest 1 View (Portable) IMPRESSION: 1. No acute cardiopulmonary disease. 2. Degenerative/posttraumatic and surgical changes bilateral shoulders. Electronically Signed: Dar Johnson DO at 23:18 EDT ,
[2022-06-05] MEDS: dexAMETHasone 10 MG/ML Vial 6 MG IV (23:04)
--- NOTE | 2022-06-05 23:09 | EKG12_ITS ---
Test Reason : Blood Pressure : / mmHG Vent. Rate : 080 BPM Atrial Rate : 080 BPM P-R Int : 162 ms QRS Dur : 092 ms QT Int : 382 ms P-R-T Axes : 007 -05 004 degrees QTc Int : 440 ms Normal sinus rhythm Inferior infarct , age undetermined Abnormal ECG Confirmed by DARCIE DAVIDSON MD ([id number]), field map editor AKILAH DEL CID ([id number]) on 06/07/2022 2:14:11 PM Referred By: Ulises Confirmed By:DARCIE DAVIDSON MD
--- NOTE | 2022-06-05 23:29 | PCM.HP.STD ---
HPI - General General Date of Admission: 06/05/22 Date of Service: 06/05/22 Chief Complaint: COVID-like symptoms HPI Narrative KATHLEEN MEJIA, is a 76 M with a significant history of hypertension who presents to the emergency department with progressively worsening COVID-like symptoms that started 2 days before presentation. He describes COVID-like symptoms as shortness of breath; a productive cough that he does not expectorate; runny nose; and a fever. He reports lack of appetite. He reports he reports fatigue and lethargy. He has received 2 of [place] COVID-19 shots. [facility] Medical History Atherosclerosis of coronary artery of [place] heart without angina pectoris Bilateral foot pain Essential (primary) hypertension history left shoulder surgery Hyperlipemia Old inferior wall myocardial infarction Type 2 diabetes mellitus Type 2 diabetes mellitus Home Medications aspirin 81 mg tablet,delayed release 81 mg PO DAILY 07/27/14 [History Last Taken 07/28/14] multivitamin with folic acid 400 mcg tablet 1 tab PO DAILY 07/27/14 [History Last Taken 07/28/14] cholecalciferol (vitamin D3) 50 mcg (2,000 unit) capsule 2,000 unit PO ONCE 11/27/17 [History Last Taken Unknown] coenzyme Q10 200 mg capsule (Co Q-10) 200 mg PO ONCE 11/27/17 [History Last Taken Unknown] nitroglycerin 0.4 mg sublingual tablet 0.4 mg sublingual PRN PRN Angina #25 tabs 11/01/21 [Rx Last Taken Unknown] metformin 500 mg tablet,extended release 24 hr 1,000 mg PO QPM 3 months #180 tabs 12/20/21 [Rx Last Taken Unknown] metoprolol succinate 50 mg tablet,extended release 24 hr 50 mg PO DAILY #90 tabs 12/20/21 [Rx Last Taken Unknown] atorvastatin 40 mg tablet 40 mg PO QHS #90 tabs 02/20/22 [Rx Last Taken Unknown] ramipril 2.5 mg capsule 2.5 mg PO DAILY #90 caps 03/30/22 [Rx Last Taken Unknown] Allergy/AdvReac Type Severity Reaction Status Date / Time No Known Allergies Allergy Verified 05/30/22 08:21 Family History Mother Colon cancer Father Diabetes Brother Diabetes Surgical History History of appendectomy History of back surgery History of coronary angioplasty (07/01/90) History of knee surgery History of left heart catheterization (07/28/14) History of tonsillectomy right eye surgery Social History Smoking Status: Former smoker how long ago did patient quit smokin alcohol intake: current alcohol intake frequency: a few times a month Alcohol type: beer and wine substance use type: does not use what type of physical activity do you participate in: walking frequency: 3-4 times per week ROS ROS Narrative Pertinent positives and pertinent negatives as noted in HPI. All other systems were reviewed and are negative. Vital Signs Vital Signs Vital Signs: 06/05/22 20:59 06/05/22 21:02 06/05/22 21:20 Temperature 98.5 F 98.5 F Temperature Source Temporal Temporal Pulse Rate 92 92 Respiratory Rate 18 18 Respiratory Effort Short of Breath Respiratory Depth Deep Respiratory Pattern Normal Blood Pressure 122/94 H 122/94 H Blood Pressure Mean 103 103 Pulse Ox 93 93 Oxygen Delivery Method Room Air Room Air Room Air Oxygen Flow Rate (L/min) 06/05/22 22:00 06/05/22 22:05 06/05/22 22:08 Temperature Temperature Source Pulse Rate 81 Respiratory Rate 36 H Respiratory Effort Respiratory Depth Respiratory Pattern Blood Pressure 115/66 Blood Pressure Mean 82 Pulse Ox 90 88 96 Oxygen Delivery Method Room Air Room Air Nasal Cannula Oxygen Flow Rate (L/min) 2 06/05/22 22:02 Temperature 99.5 F H Temperature Source Temporal Pulse Rate 70 Respiratory Rate 21 H Respiratory Effort Respiratory Depth Respiratory Pattern Blood Pressure 119/74 Blood Pressure Mean 89 Pulse Ox 77 Oxygen Delivery Method Nasal Cannula Oxygen Flow Rate (L/min) 2 Weight Weight: 87.6 kg Body Mass Index (BMI) 31.1 Physical Exam Narrative Physical exam: General: Well-nourished, well-developed. Head: Normocephalic, atraumatic, no tenderness Eyes: Vision is grossly intact. EOMI ENT, no trauma, moist mucous membranes, no rhinorrhea Neck: Nontender, full range of motion, no spinal tenderness, deformities, step-off CVS: Regular rate and rhythm. S1-S2 present. No murmur, gallop or rub. Respiratory : Rales. Chest wall nontender, no wheezing Abdomen: Soft, nontender, nondistended, normal bowel sounds, no masses : Deferred Back: Nontender, no CVA tenderness, no midline spinal tenderness, deformities, step-offs Extremities: Nontender full range of motion, no trauma Skin: Normal color, no trauma, abrasions Neuro: Alert, oriented, cranial nerves II through XII grossly intact. Psychiatry: Normal mood. Normal affect. Not depressed. Not anxious. Results Lab / Micro Data Result Diagrams: 06/05/22 21:39 06/05/22 21:39 Labs: Laboratory Results - last 24 hr 06/05/22 21:39: WBC 8.5, RBC 4.73, Hgb 15.2, Hct 45.8, MCV 96.8 H, MCH 32.1 H, MCHC 33.2, RDW Std Deviation 48.1 H, RDW Coeff of Ana 13.3, Plt Count 160, MPV 11.5, Immature Gran % (Auto) 0.400, Neut % (Auto) 65.5, Lymph % (Auto) 14.7 L, [place] % (Auto) 18.3 H, Eos % (Auto) 0.6, Baso % (Auto) 0.5, Absolute Neuts (auto) 5.6, Absolute Lymphs (auto) 1.25, Nucleated RBC % 0, Differential Comment SEE COMMENT, Platelet Estimate ADEQUATE, RBC Morphology N CHROM, Anisocytosis RARE, Macrocytosis RARE 06/05/22 21:39: D-Dimer Quant (PE/DVT) 1.13 H* 06/05/22 21:39: Sodium 137, Potassium 4.2, Chloride 103, Carbon Dioxide 27.0, Anion Gap 7, BUN 14, Creatinine 1.00, Estim Creat Clear Calc 54.94, Est GFR (MDRD) Af Amer 93, Est GFR (MDRD) Non-Af 77, BUN/Creatinine Ratio 14.0, Glucose 158 H, Calcium 9.2, Total Bilirubin 0.50, AST 31, ALT 45, Alkaline Phosphatase 57, Troponin I High Sens 6, Total Protein 7.8, Albumin 3.7, Globulin 4.1, Albumin/Globulin Ratio 0.9 06/05/22 21:39: Procalcitonin 0.07 Micro: Microbiology 06/05/22 21:29 Nasal Secretion SARS-CoV-2 Antigen (Rapid) - Final SARS-CoV-2 (COVID 19) Radiology Impression Chest X-Ray 06/05/22 22:20 IMPRESSION: 1. No acute cardiopulmonary disease. 2. Degenerative/posttraumatic and surgical changes bilateral shoulders. Electronically Signed: Dar Johnson, DO at 23:18 EDT , Assessment & Plan Assessment/Plan (1) COVID-19: (2) Type 2 diabetes mellitus: QUALIFIERS: Diabetes mellitus termite control representative insulin use: without assisted use Diabetes mellitus complication status: with other specified complication Qualified Code(s): E11.69 - Type 2 diabetes mellitus with other specified complication (3) Essential (primary) hypertension: (4) History of coronary angioplasty: PLAN: Plan COVID-19 infection Oxygen saturation of 77 to 88% with ambulation. Placed on supplemental oxygen the emergency department and continued. Acute respiratory failure ruled out. Positive coronavirus test outpatient. Chest x-ray without any acute cardiopulmonary process. CTA chest without any PE. D-dimer slightly elevated likely secondary to inflammation. Procalcitonin was low. Creatinine clearance is more than 30. Liver enzymes not elevated. Received Decadron at the emergency department. Decadron 6 mg p.o. daily ordered. Remdesivir ordered. Trend CMP and CBC. Tylenol for fever Mucinex ordered. Diabetes mellitus Patient with hyperglycemia on presentation Hold home diabetes Monitor Accu-Cheks Correction scale insulin ordered. Hypertension Blood pressure is stable Home blood pressure medication. Trend blood pressure and adjust blood pressure medications. CAD status post stent Stable Aspirin and metoprolol continued. JOBY inhibitor continued. Monitor DVT Prophylaxis Subcutaneous Lovenox ordered. Charges/Coding Visit Charges Inpatient E&M: 50109 Init Hosp L3
[2022-06-06] VITALS (7 sets, daily range): BP systolic 108–120; BP diastolic 68–82; PULSE 74–86; RESP 15–16; TEMP 36.8–37.1; O2SAT 94–98; BMI 30.7
[2022-06-06] MEDS: Remdesivir 200 MG IV x1 (Inital Dose)-All Patients 125 MG IV (06:59)
[2022-06-06] MEDS: 0.9% Saline Lock 10 ML Syringe IV ×2 (07:00→10:03)
[2022-06-06] MEDS: guaiFENesin 1,200 MG Tablet 1200 MG PO ×2 (07:00→08:42)
[2022-06-06 07:30] LABS: Bedside Glucose 206 mg/dL (74-106)
[2022-06-06] MEDS: Insulin Lispro 100 UNIT/ML INSULN.PEN SC ×2 (07:32→11:19)
[2022-06-06 07:37] LABS: Alkaline Phosphatase 59 U/L (45-117)
[2022-06-06] MEDS: Enoxaparin 30 MG/0.3 ML Syringe SC (08:41)
[2022-06-06] MEDS: dexAMETHasone 4 MG Tablet 6 MG PO (08:42)
[2022-06-06] MEDS: Cholecalciferol (VIT D3) 25 MCG TABLET (1,000 UNITS) 50 MCG PO (08:42)
[2022-06-06] MEDS: Metoprolol(XL)Succ 50 MG Tablet PO (08:42)
[2022-06-06] MEDS: Multivitamins,Therapeutic Tablet 1 TABLET PO (08:45)
[2022-06-06] MEDS: Aspirin E.C. 81 MG Tablet PO (08:45)
[2022-06-06] MEDS: Ramipril 2.5 MG Capsule PO (08:46)
[2022-06-06] MEDS: Fluticasone 0.05% 1 SPRAY NASAL.SRY 2 SPRAY NASAL (10:03)
[2022-06-06] MEDS: Furosemide 20 MG/2 ML VIAL IV (10:03)
[2022-06-06 11:45] LABS: Bedside Glucose 203 mg/dL (74-106)
--- NOTE | 2022-06-06 12:37 | DCINST_ITS ---
Discharge Instructions Diet Discharge Diet: Low fat / Low cholesterol and Carb Control Diet Activity Discharge Activity: Return to Normal Activity Dressing / Incision Call your doctor if you observe: Fever of 101 or Higher, Shortness of breath, Dizziness, Fainting spells, Swelling in the ankles, Chest pain and Increased palpitations (irregular heartbeat) Follow Up Care Test Results: Test results from this visit will be discussed in further detail at your follow- up appointment, if applicable. Discharge Plan Admission Admit Date/Time: 06/05/22 23:18 Attending Provider: Alex Butts Primary Care Provider: Ezequiel Yoo Consulting Providers: Tanner Camacho Additional Instructions / Restrictions: Follow-up with your PCP in 3 to 5 days for outpatient lab work to follow your renal function Discharge Orders/Prescriptions Prescriptions: New dexamethasone 2 mg tablet 6 mg PO DAILY 9 Days Qty: 27 0RF furosemide 20 mg tablet 20 mg PO DAILY Qty: 5 0RF Continued coenzyme Q10 [Co Q-10] 200 mg capsule 200 mg PO ONCE cholecalciferol (vitamin D3) 2,000 unit capsule 2,000 unit PO ONCE nitroglycerin 0.4 mg tablet, sublingual 0.4 mg SUBLINGUAL PRN PRN (Reason: Angina) Qty: 25 1RF aspirin 81 MG tablet,delayed release (DR/EC) 81 mg PO DAILY multivitamin with folic acid 1 TABLET tablet 1 tab PO DAILY metformin 500 mg tablet extended release 24 hr 1,000 mg PO QPM 90 Days Qty: 180 3RF metoprolol succinate 50 mg tablet extended release 24 hr 50 mg PO DAILY Qty: 90 3RF atorvastatin 40 mg tablet 40 mg PO QHS Qty: 90 3RF ramipril 2.5 mg capsule 2.5 mg PO DAILY Qty: 90 3RF Referrals / Follow Up: Ezequiel Yoo MD [Primary Care Provider] - Within 1 Week Disposition Disposition (needs filled in before D/C Order can be placed): Home, Self Care
--- NOTE | 2022-06-06 12:40 | DS.PCM_ITS ---
Providers Date of Admission: 06/05/22 Primary Care Physician: Dr. Ezequiel Yoo MD Reason For Visit: COVID 19 PNEUMONIA Diagnosis Discharge Diagnosis (1) COVID-19: Status: Acute Code(s): U07.1 - COVID-19 (2) Type 2 diabetes mellitus: Status: Chronic Code(s): E11.9 - Type 2 diabetes mellitus without complications Qualifiers: Diabetes mellitus termite exterminator helper insulin use: without termite exterminator helper use Diabetes mellitus complication status: with other specified complication Qualified Code(s): E11.69 - Type 2 diabetes mellitus with other specified complication (3) Essential (primary) hypertension: Status: Chronic Code(s): I10 - Essential (primary) hypertension (4) History of coronary angioplasty: Status: Resolved Code(s): Z98.61 - Coronary angioplasty status Medications at Discharge Home Medications aspirin 81 mg tablet,delayed release 81 mg PO DAILY Check with primary doctor 07/27/14 multivitamin with folic acid 400 mcg tablet 1 tab PO DAILY 07/27/14 cholecalciferol (vitamin D3) 50 mcg (2,000 unit) capsule 2,000 unit PO ONCE 11/27/17 coenzyme Q10 200 mg capsule (Co Q-10) 200 mg PO ONCE 11/27/17 nitroglycerin 0.4 mg sublingual tablet 0.4 mg sublingual PRN PRN Angina #25 tabs 11/01/21 metformin 500 mg tablet,extended release 24 hr 1,000 mg PO QPM 3 months #180 tabs 12/20/21 metoprolol succinate 50 mg tablet,extended release 24 hr 50 mg PO DAILY #90 tabs 12/20/21 atorvastatin 40 mg tablet 40 mg PO QHS #90 tabs 02/20/22 ramipril 2.5 mg capsule 2.5 mg PO DAILY #90 caps 03/30/22 dexamethasone 2 mg tablet 6 mg PO DAILY 9 days #27 tabs 06/06/22 furosemide 20 mg tablet 20 mg PO DAILY #5 tabs 06/06/22 Hospital Course Operations None Procedures None Summary of Care Provided Minutes Spent on Discharge: 38 Hospital Course: Per HPI: KATHLEEN MEJIA, is a 76 M with a significant history of hypertension who presents to the emergency department with progressively worsening COVID-like symptoms that started 2 days before presentation.? He describes COVID-like symptoms as shortness of breath; a productive cough that he does not expectorate; runny nose; and a fever.? He reports lack of appetite.? He reports he reports fatigue and lethargy. He has received 2 of Pfizer COVID-19 shots. Hospital Course: 1. Acute hypoxic respiratory insufficiency secondary to COVID-19 infection? 76-year-old male who started feeling unwell 4 days ago presented to the hospital with shortness of breath. He did test positive for COVID and was found to be 77 to 88% on room air with ambulation. Initially required about 2 L, today he was given a dose of Lasix and had an ambulatory pulse ox. He was 94% on room air with ambulation 96% at rest, he states that the Lasix really helped his breathing. I discussed with him the possibility for discharge today versus waiting until tomorrow or even the day after however he would like to go home today since he feels 100 times better than he did when he came in. He expressed understanding of the risk and benefits of going home and would like to go home today. We will plan on 5 days of Lasix as well as 9 more days of Decadron. I do recommend that he follow-up with his PCP as an outpatient to obtain lab work to monitor his renal function secondary to the Lasix. Of note he has been vaccinated with 2 doses of Pfizer. He improved faster than anticipated. 2. Coronary artery disease status post stent, hypertension, hyperlipidemia, type 2 diabetes are all chronic medical conditions which complicate his care. His home medications were continued where appropriate Physical Exam Narrative General: Alert, Oriented x3, Cooperative, No apparent distress HEENT: Atraumatic, PERRLA, EOMI, Normocephalic Oral: Moist Mucosa Neck: Supple, No JVD Lungs: Clear to auscultation, Normal air movement, No rhonchi, No wheeze, No rales Cardiovascular: Regular rate, Regular Rhythm, Normal S1, Normal S2, No murmurs Abdomen: Soft, Non Tender, Non-Distended, No Hepato-splenomegaly Extremities: No edema, Capillary Refill Less than 3 Seconds Skin: No rashes, No breakdown Musculoskeletal: No Tenderness to Palpation of Joints or Extremities Neurological: Cranial nerves II-XII grossly intact, Motor Exam 5/5 strength throughout, Sensory exam intact to light touch and pain Psych/Mental Status: Normal Affect, Appropriate Weight / BMI Weight Weight: 190 lb 11.198 oz Body Mass Index (BMI) 30.7 ABG / Lab / Microbiology Data Result Diagrams: 06/05/22 21:39 06/05/22 21:39 Laboratory: Laboratory Results - last 24 hr 06/05/22 21:39: WBC 8.5, RBC 4.73, Hgb 15.2, Hct 45.8, MCV 96.8 H, MCH 32.1 H, MCHC 33.2, RDW Std Deviation 48.1 H, RDW Coeff of Ana 13.3, Plt Count 160, MPV 11.5, Immature Gran % (Auto) 0.400, Neut % (Auto) 65.5, Lymph % (Auto) 14.7 L, [place] % (Auto) 18.3 H, Eos % (Auto) 0.6, Baso % (Auto) 0.5, Absolute Neuts (auto) 5.6, Absolute Lymphs (auto) 1.25, Nucleated RBC % 0, Differential Comment SEE COMMENT, Platelet Estimate ADEQUATE, RBC Morphology N CHROM, Anisocytosis RARE, Macrocytosis RARE 06/05/22 21:39: D-Dimer Quant (PE/DVT) 1.13 H* 06/05/22 21:39: Sodium 137, Potassium 4.2, Chloride 103, Carbon Dioxide 27.0, Anion Gap 7, BUN 14, Creatinine 1.00, Estim Creat Clear Calc 54.94, Est GFR (MDRD) Af Amer 93, Est GFR (MDRD) Non-Af 77, BUN/Creatinine Ratio 14.0, Glucose 158 H, Calcium 9.2, Total Bilirubin 0.50, AST 31, ALT 45, Alkaline Phosphatase 57, Troponin I High Sens 6, Total Protein 7.8, Albumin 3.7, Globulin 4.1, Albumin/Globulin Ratio 0.9 06/05/22 21:39: Procalcitonin 0.07 06/06/22 06:52: Alkaline Phosphatase 59 06/06/22 07:09: POC Glucose 206 H 06/06/22 11:15: POC Glucose 203 H Microbiology: Microbiology 06/05/22 21:29 Nasal Secretion SARS-CoV-2 Antigen (Rapid) - Final SARS-CoV-2 (COVID 19) Radiography Diagnostic Testing: Radiology Impression Chest CTA 06/05/22 22:13 IMPRESSION: No pulmonary embolism. No evidence of acute cardiopulmonary disease. Stigmata of prior granulomatous infection. Homogenous, hypodense thyroid nodules most likely benign. Correlate clinically and consider thyroid ultrasound. Extensive coronary artery calcifications may be indicative of acute increased risk for acute coronary syndrome. Electronically Signed: Dar DO Alex at 23:39 EDT , Chest X-Ray 06/05/22 22:20 IMPRESSION: 1. No acute cardiopulmonary disease. 2. Degenerative/posttraumatic and surgical changes bilateral shoulders. Electronically Signed: Dar Johnson DO at 23:18 EDT , D/C Instructions Discharge Diet: Low fat / Low cholesterol and Carb Control Diet Call your doctor if you observe: Fever of 101 or Higher, Shortness of breath, Dizziness, Fainting spells, Swelling in the ankles, Chest pain and Increased palpitations (irregular heartbeat) Meaningful Use Info Meaningful Use Diagnoses (Choose all that apply): None applicable Discharge Plan Admission Admit Date/Time: 06/05/22 23:18 Attending Provider: Alex Butts Primary Care Provider: Ezequiel Yoo Consulting Providers: Tanner Camacho Instructions Additional Instructions / Restrictions: Follow-up with your PCP in 3 to 5 days for outpatient lab work to follow your renal function Discharge Orders/Prescriptions Prescriptions: New dexamethasone 2 mg tablet 6 mg PO DAILY 9 Days Qty: 27 0RF furosemide 20 mg tablet 20 mg PO DAILY Qty: 5 0RF Continued coenzyme Q10 [Co Q-10] 200 mg capsule 200 mg PO ONCE cholecalciferol (vitamin D3) 2,000 unit capsule 2,000 unit PO ONCE nitroglycerin 0.4 mg tablet, sublingual 0.4 mg SUBLINGUAL PRN PRN (Reason: Angina) Qty: 25 1RF aspirin 81 MG tablet,delayed release (DR/EC) 81 mg PO DAILY multivitamin with folic acid 1 TABLET tablet 1 tab PO DAILY metformin 500 mg tablet extended release 24 hr 1,000 mg PO QPM 90 Days Qty: 180 3RF metoprolol succinate 50 mg tablet extended release 24 hr 50 mg PO DAILY Qty: 90 3RF atorvastatin 40 mg tablet 40 mg PO QHS Qty: 90 3RF ramipril 2.5 mg capsule 2.5 mg PO DAILY Qty: 90 3RF Referrals / Follow Up: Ezequiel Yoo MD [Primary Care Provider] - Within 1 Week Disposition Disposition (needs filled in before D/C Order can be placed): Home, Self Care Charges/Coding Visit Charges Inpatient E&M: 49078 Disch Hosp
--- NOTE | 2022-06-06 13:14 | CASEMGMT ---
RN ADE JUKEBOX COIN COLLECTOR ADE placed call to pt's room for initial transition planning/care coordination assessment. RN ADE introduced self and role at [facility].? Pt voices understanding and consents to assessment at this time.? Pt is A/O at this time and answers all questions appropriately.?? Care providers, pharmacy, and demographics verified/updated at this time. PCP: Dr Yoo Specialists: Dr Quintanilla Preferred Pharmacy: [facility]--states plans to do curb-side pick-up Insurance: [facility] Prescription Benefit:?Yes Living Will/HPOA:?Has both LW and HPOA, who is his , Danisha [place]: , Danihsa Living Arrangements: Lives w/ in one-story home w/2 steps to enter. Independent. Pt states, I'd be out on the [employer] course if I wasn't in here. Transportation:?Pt states drives self and states no transportation concerns at this time.? also drives. DME: ?States has the following DME:?functioning glucometer w/supplies. ?Pt states no need for further DME at this time.? HHC/SNF: No hx of either. Has done OP therapy @ [facility] in the past. No needs identified. Pt wishes to return home and states has no concerns with going home at time of discharge.? Pt voices no concerns/needs at this time.? Advised pt to ask for CM if any questions/concerns/needs arise.? Voices understanding. Pt has been tested for Home O2 and does not qualify. Pt states his has not been ill/has not had any symptoms of COVID. She tested both Saturday and today and has been negative. Pt states if they need groceries or supplies, they plan to have [employer] deliver or do curb-side pick-up. PLAN:??Home w/spousal support and discharge plans in place. Elda MORTENSEN RN, CM
--- NOTE | 2022-06-06 14:21 | NURSING ---
Patient discharged at this time. Patient walked down with staff member and was picked up by .
== END 2022-06-06 14:14 | disposition home or self-care (01) | DRG 179 ==
LOC: ED 23:22 → PCU 23:58
PROVIDERS: Admitting Provider Hospitalist; Emergency Provider Student in an Organized Health Care Education/Training Program; PCP Internal Medicine; Visit Provider Family Medicine
DX: U07.1 COVID-19 (principal); E11.65 Type 2 diabetes mellitus with hyperglycemia; I25.10 Atherosclerotic heart disease of native coronary artery without angina pectoris; I10 Essential (primary) hypertension; E78.5 Hyperlipidemia, unspecified; I25.2 Old myocardial infarction; R09.02 Hypoxemia; Z79.84 Long term (current) use of oral hypoglycemic drugs; Z79.82 Long term (current) use of aspirin; Z79.899 Other long term (current) drug therapy; Z87.891 Personal history of nicotine dependence; Z95.5 Presence of coronary angioplasty implant and graft
CPT/HCPCS: 36415; 71045; 71275; 80053; 82962; 84075; 84145; 84484; 85025; 85379; 87040; 87811; 93005; 96372; 96374; 96375; 99221; 99285; J7050; Q9967; A4216; G0378; J0248; J1940

== ENCOUNTER → 2022-06-11 | Outpatient (CLI) | payer MEDICARE, SELFPAY ==
[2022-06-11 12:23] LABS: Anion Gap 5 (5-15); BUN 28 mg/dL (7-18); BUN/Creat Ratio 23.3 RATIO (10-20); Calcium,Total 9.6 mg/dL (8.5-10.1); Chloride 99 mmol/L (98-107); EST Glomerular Filtration Rate 62 mL/min (>60); Est Glom Filt Rate - Afr Amer 75 mL/min (>60); Glucose 260 mg/dL (74-106); Potassium 5.1 mmol/L (3.5-5.1); Sodium Level 135 mmol/L (136-145)
== END | disposition home or self-care (01) ==
LOC: BIMLAB 09:53
PROVIDERS: PCP Internal Medicine; Referring Provider Physician Assistant; Visit Provider Physician Assistant
DX: U07.1 COVID-19 (principal)
CPT/HCPCS: 36415; 80048

== ENCOUNTER → 2022-06-25 | Outpatient (CLI) | payer MEDICARE, SELFPAY ==
--- NOTE | 2022-06-25 11:28 | US_ITS ---
EXAM: US SOFT TISSUES HEAD AND NECK, THYROID CLINICAL INDICATION: thyroid nodule thyroid nodule TECHNIQUE: Greyscale and color doppler imaging was performed of the thyroid gland. This report was created using [employer] report generation technology. COMPARISON: CTA chest 06/05/2022. FINDINGS: LEFT THYROID LOBE: The left lobe of the thyroid gland measures 4.2 x 1.1 x 1.8 cm and it is heterogeneous. There are numerous tiny subcentimeter left thyroid nodules. The 2 largest nodules were measured by the dairy manufacturing technologist. In the upper pole of the left lobe, there is a 6 x 5 x 4 mm cystic lesion. This nodule is benign and no FNA or follow-up is necessary. In the mid left lobe, there is a 6 x 4 x 4 mm nodule. This nodule is solid or almost completely solid, hypoechoic, [id number], smoothly marginated and contains no echogenic foci. This nodule is moderately suspicious but no FNA or follow-up is necessary given the small size of this nodule. RIGHT THYROID LOBE: The right lobe of the thyroid gland measures 4.5 x 1.9 x 1.6 cm and it is heterogeneous. There is a small hyperechoic focus in the upper pole of the right lobe which is likely representing calcification. There are numerous tiny subcentimeter right thyroid nodules. The 2 largest nodules were measured by the dairy manufacturing technologist. In the mid right lobe, there is a 1.7 x 1.4 x 1.2 cm cystic lesion. This nodule is benign and no FNA or follow-up is necessary. In the mid right lobe, there is a 6 x 6 x 3 mm cystic nodule. This nodule is benign and no FNA or follow-up is necessary. ISTHMUS: The thyroid isthmus measures 4 mm. There is a 1.1 x 0.5 x 1.1 cm cystic lesion in the isthmus. This nodule is benign and no FNA or follow-up is necessary. US/Thyroid IMPRESSION: 1. Multiple thyroid nodules, as above. 2. Each of the visualized nodules has benign characteristics or is small enough that no fine-needle aspiration or follow-up is necessary. Electronically Signed: Doc Acuna MD at 2:57 EDT ,
== END | disposition home or self-care (01) ==
LOC: US 11:27
PROVIDERS: PCP Internal Medicine; Referring Provider Physician Assistant; Visit Provider Physician Assistant
DX: E04.1 Nontoxic single thyroid nodule (principal)
CPT/HCPCS: 76536

== ENCOUNTER → 2023-01-18 | Outpatient (CLI) | payer MEDICARE, SELFPAY ==
[2023-01-18 16:51] LABS: Hemoglobin A1c 8.3 % (3.8-5.6)
[2023-01-18 16:53] LABS: ALB/GLOB Ratio 1.1 RATIO (0.9-2.4); AST(SGOT) 35 U/L (15-37); Alanine Aminotransfer ALT/SGPT 43 U/L (16-61); Albumin, Serum 3.9 g/dL (3.2-5.0); Alkaline Phosphatase 61 U/L (45-117); Anion Gap 8 (5-15); BUN 16 mg/dL (7-18); Calcium,Total 9.4 mg/dL (8.5-10.1); Chloride 102 mmol/L (98-107); EST Glomerular Filtration Rate 77 mL/min (>60); Est Glom Filt Rate - Afr Amer 93 mL/min (>60); Globulin 3.7 g/dL (2.2-4.2); Glucose 179 mg/dL (74-106); Potassium 4.6 mmol/L (3.5-5.1); Protein, Total 7.6 g/dL (6.4-8.2); Sodium Level 139 mmol/L (136-145)
[2023-01-18 16:59] LABS: Microalbumin,Random Urine 6.4 mg/L (NO RANGE EST.); Microalbumin:Creatinine Ratio 10.8 mg/g CRE (<30 mg/g CRE)
== END | disposition home or self-care (01) ==
LOC: BIMLAB 15:09
PROVIDERS: PCP Internal Medicine; Referring Provider Internal Medicine; Visit Provider Internal Medicine
DX: E11.9 Type 2 diabetes mellitus without complications (principal)
CPT/HCPCS: 36415; 80053; 82043; 82570; 83036

== ENCOUNTER → 2023-02-01 | Outpatient (CLI) | payer MEDICARE, SELFPAY ==
--- NOTE | 2023-02-01 06:10 | ECHOD_ITS ---
Reason For Study: ASHD/CAD Procedure This was a 2D Doppler, Color Flow transthoracic echocardiogram. Exam performed in department. Left Ventricle Normal LV size. Left ventricular systolic function is normal. The estimated ejection fraction is 60 %. Stage 1 diastolic dysfunction. No regional wall motion abnormalities noted. Right Ventricle Normal RV size. Normal systolic function. Atria Normal left atrium. Normal right atrium. Mitral Valve Normal mitral valve. Tricuspid Valve Normal tricuspid valve. Mild tricuspid valve insufficiency. Pulmonary artery systolic pressure is 27 mmHg. Aortic Valve Trisinus/trileaflet aortic valve. Mild diffuse aortic valve thickening. Pulmonic Valve Normal pulmonic valve. Great Vessels Normal aortic root. The pulmonary artery is normal size. Normal inferior vena cava. Pericardium/Pleural No pericardial effusion. MMode/2D Measurements & Calculations LVIDd: 4.5 cm IVSd: 1.2 cm LVOT diam: 2.2 cm LVIDs: 3.5 cm LVPWd: 0.98 cm LVOT area: 3.9 cm2 RVDd: 3.5 cm FS: 22.6 % Ao root diam: 3.7 cm LAV(MOD-bp): 56.2 ml LVAd ap4: 31.8 cm2 LAV(MOD-bp) Indexed: 27.7 ml/m2 LVLd ap4: 7.8 cm LAV(MOD-sp2): 56.3 ml EDV(MOD-sp4): 104.8 ml LAV(MOD-sp4): 56.2 ml EDV(sp4-el): 109.7 ml LVAs ap4: 21.0 cm2 LVLs ap4: 7.0 cm ESV(MOD-sp4): 52.9 ml ESV(sp4-el): 53.1 ml EF(MOD-sp4): 49.5 % EF(sp4-el): 51.6 % SV(MOD-sp4): 51.9 ml SV(sp4-el): 56.5 ml LA A4 area: 19.8 cm2 LA dimension(2D): 4.2 cm RA A4 area: 13.6 cm2 Time Measurements MV dec time: 0.20 sec Doppler Measurements & Calculations MV E max alton: 46.3 cm/sec Lat Peak E' [place]: 8.4 cm/sec Med Peak E' [place]: 7.4 cm/sec MV A max alton: 86.8 cm/sec E/E' lat: 5.5 E/E' med: 6.3 MV E/A: 0.53 Ao V2 max: 135.1 cm/sec LV V1 max: 73.7 cm/sec MV dec slope: 230.5 cm/sec2 Ao max P.3 mmHg LV V1 max P.2 mmHg Ao V2 mean: 92.2 cm/sec LV V1 mean P.2 mmHg Ao mean P.9 mmHg LV V1 mean: 51.4 cm/sec Ao V2 VTI: 27.1 cm LV V1 VTI: 13.6 cm AV (velocity ratio): 0.50 APRIL(I,D): 2.0 cm2 APRIL(V,D): 2.2 cm2 SV(LVOT): 53.5 ml PA V2 max: 112.3 cm/sec TR max alton: 246.2 cm/sec TR max P.3 mmHg ECHO/Echo Complete Interpretation Summary Normal LV size. Left ventricular systolic function is normal. The estimated ejection fraction is 60 %. Stage 1 diastolic dysfunction. Pulmonary artery systolic pressure is 27 mmHg. Ordering Physician: Luigi Quintanilla Referring Physician: Ezequiel Yoo Performed By: Rosy Lora, RDCS, RVT
--- NOTE | 2023-02-01 18:08 | STRESSREP ---
Stress Test Report Exercise myocardial perfusion stress test. 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 The patient exercised according to the regular Greg protocol for a total duration of 8 minutes attaining a maximum heart rate of 137 bpm which was 97% of maximum predicted heart rate; the maximum workload was 10.4 metabolic equivalents. At rest there were no ST or T wave changes noted to suggest ischemia and at peak exercise upsloping ST changes only were noted which did not meet the criteria for ischemia. Occasional premature ventricular complex noted. No clinical angina was noted the test was terminated due to the target heart rate being achieved/fatigue. The peak blood pressure was 160/72 mmHg. Rate-pressure product was 22,000. Myocardial perfusion protocol. 10.6 mCi of technetium 99m sestamibi was injected at rest. The patient exercised according to regular Greg protocol for total duration of 8 minutes and at peak exercise 33.0 mCi of technetium 99m sestamibi was injected stress images were obtained stress and rest images were reconstructed in comparing the short axis vertical long and horizontal long axis. Gated images were also obtained. Perfusion SPECT analysis: Review of the stress images demonstrate normal uptake of tracer noted in all areas of the myocardium except for the mid inferior wall with an area of reduced perfusion.. The resting images similarly demonstrate normal uptake of tracer noted in all areas of the myocardium with improvement in the mid inferior wall suggesting mid inferior ischemia. No other areas of ischemia are noted. A small basal inferior infarct is present. Gated SPECT analysis: The gated ejection fraction is 50%. Conclusion: Abnormal exercise myocardial perfusion stress test at a high workload. Mid inferior ischemia is present-known occluded right coronary artery with [id number]-lr-husor collaterals Low normal ejection fraction.
== END | disposition home or self-care (01) ==
LOC: CVS 06:08
PROVIDERS: PCP Internal Medicine; Visit Provider Internal Medicine Cardiovascular Disease
DX: I25.10 Atherosclerotic heart disease of native coronary artery without angina pectoris (principal); I25.2 Old myocardial infarction
CPT/HCPCS: 78452; 93017; 93306; A9500

== ENCOUNTER → 2023-04-29 | Outpatient (CLI) | payer MEDICARE, SELFPAY ==
[2023-04-29 12:54] LABS: AST(SGOT) 25 U/L (15-37); Alanine Aminotransfer ALT/SGPT 32 U/L (16-61); Albumin, Serum 3.9 g/dL (3.2-5.0); Alkaline Phosphatase 54 U/L (45-117); Anion Gap 4 (5-15); BUN 17 mg/dL (7-18); BUN/Creat Ratio 18.5 RATIO (10-20); Bilirubin, Direct 0.17 mg/dL (0.00-0.30); Calcium,Total 9.7 mg/dL (8.5-10.1); Chloride 105 mmol/L (98-107); Cholesterol 130 mg/dL (200); Creatinine, Serum 0.92 mg/dL (0.70-1.30); EST Glomerular Filtration Rate 84 mL/min (>60); Est Glom Filt Rate - Afr Amer 102 mL/min (>60); Globulin 3.8 g/dL (2.2-4.2); Glucose 108 mg/dL (74-106); High Density Lipoprotein 55 mg/dL; Potassium 4.7 mmol/L (3.5-5.1); Protein, Total 7.7 g/dL (6.4-8.2); Sodium Level 138 mmol/L (136-145); Triglycerides 71 mg/dL; Very Low Density Lipoprotein 14 mg/dL (5-40)
[2023-04-29 13:02] LABS: Hemoglobin A1c 6.6 % (3.8-5.6)
== END | disposition home or self-care (01) ==
LOC: BIMLAB 08:35
PROVIDERS: PCP Internal Medicine; Visit Provider Internal Medicine
DX: E11.9 Type 2 diabetes mellitus without complications (principal); I10 Essential (primary) hypertension
CPT/HCPCS: 36415; 80048; 80061; 80076; 83036

== ENCOUNTER 2024-01-06 06:33 | Day surgery (SDC) | payer MEDICARE, SELFPAY ==
[2023-12-27 09:04] LABS: Absolute Lymphocyte Count 1.83 X10^3/uL (0.83-4.51); Absolute Neutrophil Count 3.8 X10^3/uL (2.0-7.7); Basophil# 0.05 X10^3/uL; Basophil% 0.7 % (0-1); Eosinophil# 0.19 X10^3/uL; Eosinophils% 2.8 % (0-5); Hematocrit 47.2 % (40-54); Hemoglobin 15.4 g/dL (13.0-16.5); Lymphocyte # 1.83 X10^3/ul (0.83-4.51); Lymphocyte % 27.4 % (19-41); Mean Corp Hgb Conc 32.6 g/dL (32-36); Mean Corpuscular Hgb 31.4 pg (27.0-32.0); Mean Corpuscular Volume 96.1 fL (80-94); Mean Platelet Vol. 11.6 fl (6.2-12.0); Monocyte# 0.78 X10^3/uL; Monocyte% 11.7 % (0-10); NRBC Flagged by Analyzer 0 % (0-5); Neutrophil # 3.81 X10^3/uL (2.7-7.7); Platelet Count 201 K/mm3 (150-450); RBC Distribution Width CV 13.5 % (11.6-14.6); RBC Distribution Width SD 48.1 fl (35.1-43.9); Red Blood Count 4.91 M/mm3 (4.6-6.2); White Blood Count 6.7 K/mm3 (4.4-11.0)
[2023-12-27 09:16] LABS: Prothrombin Time (Protime)PT. 12.6 SECONDS (11.7-14.9)
[2023-12-27 09:17] LABS: Partial Thromboplast Time 26.2 Seconds (24.1-36.2)
[2023-12-27 09:35] LABS: Vitamin B12 388 pg/mL (211-911)
[2023-12-27 09:55] LABS: Hemoglobin A1c 6.7 % (3.8-5.6)
[2023-12-27 10:45] LABS: ALB/GLOB Ratio 1.1 RATIO (0.9-2.4); AST(SGOT) 25 U/L (15-37); Alanine Aminotransfer ALT/SGPT 33 U/L (16-61); Albumin, Serum 3.8 g/dL (3.2-5.0); Alkaline Phosphatase 47 U/L (45-117); Anion Gap 6 (5-15); BUN 20 mg/dL (7-18); BUN/Creat Ratio 18.5 RATIO (10-20); Calcium,Total 9.2 mg/dL (8.5-10.1); Chloride 105 mmol/L (98-107); Creatinine, Serum 1.08 mg/dL (0.70-1.30); EST Glomerular Filtration Rate 70 mL/min (>60); Est Glom Filt Rate - Afr Amer 85 mL/min (>60); Globulin 3.6 g/dL (2.2-4.2); Glucose 148 mg/dL (74-106); PSA,Total - Annual Screen 1.54 ng/mL (0.00-4.00); Potassium 4.4 mmol/L (3.5-5.1); Protein, Total 7.4 g/dL (6.4-8.2); Sodium Level 138 mmol/L (136-145)
[2023-12-27 13:30] LABS: Microalbumin,Random Urine 11.1 mg/L (NO RANGE EST.); Microalbumin:Creatinine Ratio 7.4 mg/g CRE (<30 mg/g CRE)
[2024-01-03 09:40] VITALS: BMI 30.4
--- OUTSIDE RECORDS SUMMARY | 2024-01-06 06:45 | XMS RPT_ITS | CCD ---
Author Name Unknown Address [address] [place] [address] Organization [facility] Care Team Providers Care Plant Wrapper Name Role Phone Taylor Jamil Bryan Unavailable Unavailable Hoda Carmona Unavailable Hoda Carmona Unavailable Jessica Danielle RN Unavailable Unavailable Medications Completed/Discontinued Medications Medication Drug Class(es) Dates Sig (Normalized) Sig (Original) aspirin 81 mg oral tablet (12 sources) Nonsteroidal Anti-inflammatory Drug Start: 04-12-2006 take 1 tablet by mouth once daily ASPIRIN 81 MG TABS One tablet by mouth daily ASPIRIN [id number] Mely Torres Problems Active Problems Problem Classification Problem Date Documented Da te Episodic/Chronic Congestive heart failure; nonhypertensive (8 sources) Heart failure; Translations: [Heart failure, unspecified] Onset: 01-26-2011 Resolved: 09-21-2016 01-26-2011 Chronic Coronary atherosclerosis and other heart disease (16 sources) Old myocardial infarction; Translations: [Old myocardial infarction] Onset: 01-26-2011 09-21-2016 Chronic Disorders of lipid metabolism (4 sources) Hyperlipidemia; Translations: [Hyperlipidemia, unspecified] Onset: 01-26-2011 01-26-2011 Chronic Essential hypertension (4 sources) Hypertensive disorder; Translations: [Essential (primary) hypertension] Onset: 01-26-2011 01-26-2011 Chronic Other nutritional; endocrine; and metabolic disorders (5 sources) Body mass index (BMI) 33.0-33.9, adult; Translations: [Body mass index (BMI) 31.0-31.9, adult] Onset: 11-22-2014 11-22-2014 Chronic Unclassified (3 sources) Body mass index (BMI) 31.0-31.9, adult; Translations: [Body mass index (BMI) 31.0-31.9, adult] Onset: 11-22-2014 02-28-2016 Chronic Unclassified (3 sources) Long-term drug therapy; Translations: [Other intermission coordinator (current) drug therapy] Onset: 01-26-2011 01-26-2011 Unclassified (2 sources) Preoperative cardiovascular examination ; Translations: [Encounter for preprocedural cardiovascular examination] Onset: 10-01-2017 10-01-2017 Past or Other Problems Problem Classification Problem Date Documented Da te Episodic/Chronic Conditions associated with dizziness or vertigo (4 sources) Dizziness; Translations: [Dizziness and giddiness] Onset: 01-11-2017 01-11-2017 Episodic Coronary atherosclerosis and other heart disease (11 sources) Coronary angioplasty status; Translations: [History of myocardial infarction] Onset: 01-26-2011 01-26-2011 Episodic Nonspecific chest pain (8 sources) Chest discomfort; Translations: [Other chest pain] Onset: 07-20-2014 Resolved: 08-19-2015 08-19-2015 Episodic Other aftercare (1 source) Other group home (current) drug therapy; Translations: [Other group home (current) drug therapy] Onset: 01-26-2011 01-26-2011 Episodic Other circulatory disease (1 source) History of myocardial infarction; Translations: [Old myocardial infarction] Onset: 01-26-2011 01-26-2011 Episodic Unclassified (4 sources) FH: Raised blood lipids; Translations: [Family history of other endocrine, nutritional and metabolic diseases] 11-22-2014 Episodic Results Test Name Value Interpretation Reference Range Facil ity Vital Signs Date Time Vital Sign Value Performing Clinician Isis leblanc 10-01-2017 09:33-0500 BMI (Body Mass Index) 31.79 kg/m2 Hoda Jay [facility] Work Phone: 10-01-2017 09:33-0500 BP Diastolic 50 mm[Hg] [facility] Work Phone: 10-01-2017 09:33-0500 BP Systolic 100 mm[Hg] Hoda Jay [facility] Work Phone: 10-01-2017 09:33-0500 Height 170.18 cm Hoda Jay [facility] Work Phone: 10-01-2017 09:33-0500 Pulse (Heart Rate) 76 /min Hoda Carmona [facility] Work Phone: 10-01-2017 09:33-0500 Respiratory Rate 20 /min Hoda Carmona [facility] Work Phone: 10-01-2017 09:33-0500 Weight 92.08 kg Hoda Carmona [facility] Work Phone: 01-11-2017 10:10-0500 BMI (Body Mass Index) 31.6 kg/m2 Haryi DeFinreid [facility] Work Phone: 01-11-2017 10:10-0500 BP Diastolic 62 mm[Hg] Harumi DeFinis [facility] Work Phone: 01-11-2017 10:10-0500 BP Diastolic 74 mm[Hg] Harumi DeFinis [facility] Work Phone: 01-11-2017 10:10-0500 BP Diastolic 70 mm[Hg] Harumi DeFinis [facility] Work Phone: 01-11-2017 10:10-0500 BP Systolic 108 mm[Hg] Harumi DeFinis [facility] Work Phone: 01-11-2017 10:10-0500 BP Systolic 110 mm[Hg] Harumi DeFinis [facility] Work Phone: 01-11-2017 10:10-0500 BSA (Body Surface Area) 2.03 m2 Harumi DeFinis [facility] Work Phone: 01-11-2017 10:10-0500 Pulse (Heart Rate) 64 /min Harumi DeFinis [facility] Work Phone: 01-11-2017 10:10-0500 Pulse (Heart Rate) 68 /min Harumi DeFinis [facility] Work Phone: 01-11-2017 10:10-0500 Pulse (Heart Rate) 70 /min Harumi DeFinis [facility] Work Phone: 01-11-2017 10:10-0500 Pulse Oximetry 96 % Jamil ALTILIA [facility] Work Phone: 01-11-2017 10:10-0500 Respiratory Rate 20 /min Haryi Writtenis [facility] Work Phone: 01-11-2017 10:10-0500 Weight 91.54 kg Jamil ALTILIA [facility] Work Phone: 09-28-2016 13:58-0500 Height 170.18 cm Harumi ALTILIA [facility] Work Phone: Procedures Date Procedure Procedure Detail Performing Clinician Start: 10-01-2017 End: 10-01-2017 [employer] Luigi Quintanilla MD Start: 10-01-2017 End: 10-01-2017 Follow Up Appt 1 year Luigi Quintanilla MD Start: 01-18-2017 End: 10-01-2017 Stress Echocardiogram (treadmill) Beatrice Barry [employer] Work Phone: Start: 01-11-2017 End: 01-14-2017 *BMP Beatrice Barry [employer] Work Phone: Start: 01-11-2017 End: 01-11-2017 *CBC with Differential Beatrice Barry [employer] Work Phone: Start: 01-11-2017 End: 10-01-2017 Carotid duplex Beatrice Barry [employer] Work Phone: Start: 01-11-2017 End: 01-11-2017 Follow Up Appt Other Beatrice Barry [employer] Work Phone: Start: 01-11-2017 End: 01-14-2017 Magnesium [Mass/volume] in Serum or Plasma Beatrice Barry [employer] Work Phone: Start: 01-11-2017 End: 01-11-2017 MMM Beatrice Barry [employer] Work Phone: Start: 01-11-2017 End: 01-14-2017 Thyrotropin [Units/volume] in Serum or Plasma Beatrice Barry [employer] Work Phone: Start: 01-11-2017 End: 01-14-2017 Thyroxine (T4) [Mass/volume] in Serum or Plasma Beatrice Barry [employer] Work Phone: Start: 01-11-2017 End: 01-14-2017 *BMP Beatrice Barry [employer] Work Phone: Start: 01-11-2017 End: 01-11-2017 *CBC with Differential Beatrice Barry [employer] Work Phone: Start: 01-11-2017 End: 01-11-2017 Follow Up Appt Other Beatrice Barry [employer] Work Phone: Start: 01-11-2017 End: 01-14-2017 Magnesium Beatrice Barry [employer] Work Phone: Start: 01-11-2017 End: 01-11-2017 MMM Beatrice Barry [employer] Work Phone: Start: 01-11-2017 End: 01-14-2017 Thyroid stimulating hormone (TSH) Beatrice Barry [employer] Work Phone: Start: 01-11-2017 End: 01-14-2017 Thyroxine (T4) Beatrice Barry [employer] Work Phone: Start: 09-28-2016 End: 09-28-2016 JALEN Quintanilla MD Start: 09-28-2016 End: 09-28-2016 Follow Up Appt 1 year Luigi Quintanilla MD Start: 09-28-2016 End: 09-28-2016 JALEN Quintanilla MD Start: 09-28-2016 End: 09-28-2016 Follow Up Appt 1 year Luigi Quintanilla MD Start: 02-28-2016 End: 02-28-2016 JALEN Mota PA-C Work Phone: Start: 02-28-2016 End: 02-28-2016 Ecg routine ecg w/least 12 lds w/i&r Ksenia Mota PA-C Work Phone: Start: 02-28-2016 End: 02-28-2016 Follow Up Appt 6 months Ksenia oliver PA-C Work Phone: Start: 02-28-2016 End: 02-28-2016 [employer] Ksenia Mota PA-C Work Phone: Start: 02-28-2016 End: 02-28-2016 Electrocardiogram, complete Ksenia Gutierrez PA-C Work Phone: Start: 02-28-2016 End: 02-28-2016 Follow Up Appt 6 months Ksenia oliver PA-C Work Phone: Start: 08-19-2015 End: 08-19-2015 Follow Up Appt 6 months Dada Perez Start: 08-19-2015 End: 08-19-2015 TRAMAINE Quintanilla MD Start: 08-19-2015 End: 08-19-2015 Follow Up Appt 6 months Dada Perez Start: 08-19-2015 End: 08-19-2015 TRAMAINE Quintanilla MD Start: 11-22-2014 End: 11-22-2014 JALEN Mota PA-C Work Phone: Start: 11-22-2014 End: 11-22-2014 Follow Up Appt 6 months Ksenia oliver PA-C Work Phone: Start: 11-22-2014 End: 11-22-2014 JALEN Mota PA-C Work Phone: Start: 11-22-2014 End: 11-22-2014 Follow Up Appt 6 months Ksenia oliver PA-C Work Phone: Start: 07-20-2014 End: 07-21-2014 *BMP Luigi Quintanilla MD Start: 07-20-2014 End: 07-21-2014 CBC W Auto Differential panel - Blood Luigi Quintanilla MD Start: 07-20-2014 End: 07-29-2014 Chest x-ray Luigi Quintanilla MD Start: 07-20-2014 End: 07-21-2014 Ecg routine ecg w/least 12 lds w/i&r Luigi Quintanilla MD Start: 07-20-2014 End: 07-26-2014 Echocardiography Luigi Quintanilla MD Start: 07-20-2014 End: 08-19-2015 Follow Up Appt 3 months Dada Perez Start: 07-20-2014 End: 07-21-2014 INR in Platelet poor plasma by Coagulation assay Luigi Quintanilla MD Start: 07-20-2014 End: 07-29-2014 Left Heart Cath Luigi Quintanilla MD Start: 07-20-2014 End: 08-19-2015 MMM Luigi Quintanilla MD Start: 07-20-2014 End: 07-21-2014 *BMP Luigi Quintanilla MD Start: 07-20-2014 End: 07-21-2014 CBC W Auto Differential panel - Blood Luigi Quintanilla MD Start: 07-20-2014 End: 07-29-2014 Chest x-ray Luigi Quintanilla MD Start: 07-20-2014 End: 07-21-2014 Coagulation factor induced.INR assay in platelet poor plasma Luigi Quintanilla MD Start: 07-20-2014 End: 07-26-2014 Echocardiography Luigi Quintanilla MD Start: 07-20-2014 End: 07-21-2014 Electrocardiogram, complete Luigi Gutierrez i, MD Start: 07-20-2014 End: 08-19-2015 Follow Up Appt 3 months Dada Perez Start: 07-20-2014 End: 07-29-2014 Left Heart Cath Luigi Quintanilla MD Start: 07-20-2014 End: 08-19-2015 MMM Luigi Quintanilla MD Start: 10-26-2013 End: 10-26-2013 JALEN Mota PA-C Work Phone: Start: 10-26-2013 End: 10-26-2013 Follow Up Appt 6 months Ksenia oliver PA-C Work Phone: Start: 10-26-2013 End: 10-26-2013 JALEN Mota PA-C Work Phone: Start: 10-26-2013 End: 10-26-2013 Follow Up Appt 6 months Ksenia oliver PA-C Work Phone: Start: 08-18-2013 End: 09-14-2013 *Hepatic Function Panel Dada Perez Start: 08-18-2013 End: 09-14-2013 Lipid 1996 panel - Serum or Plasma Luigi Quintanilla MD Start: 08-18-2013 End: 09-14-2013 *Hepatic Function Panel Dada Perez Start: 08-18-2013 End: 09-14-2013 Lipid panel [AGGREGATE] Dada Perez Start: 04-28-2013 End: 04-28-2013 Follow Up Appt 6 months Dada Perez Start: 04-28-2013 End: 04-28-2013 TRAMAINE Quintanilla MD Start: 04-28-2013 End: 05-04-2013 Nuclear stress test -exercise Luigi Quintanilla MD Start: 04-28-2013 End: 04-28-2013 Follow Up Appt 6 months Dada Perez Start: 04-28-2013 End: 04-28-2013 TRAMAINE Quintanilla MD Start: 04-28-2013 End: 05-04-2013 Nuclear stress test -exercise Luigi Quintanilla MD Start: 03-11-2013 End: 03-13-2013 *Hepatic Function Panel Saroj Canseco MD Start: 03-11-2013 End: 03-13-2013 Lipid 1996 panel - Serum or Plasma Saroj Canseco MD Start: 03-11-2013 End: 03-13-2013 *Hepatic Function Panel Saroj Canseco MD Start: 03-11-2013 End: 03-13-2013 Lipid panel [AGGREGATE] Saroj Canseco MD Start: 09-15-2012 End: 09-15-2012 Follow Up Appt 6 months Saroj Canseco MD Start: 09-15-2012 End: 09-15-2012 Follow Up Appt 6 months Saroj Canseco MD Start: 08-20-2012 End: 09-10-2012 *Hepatic Function Panel Saroj Canseco MD Start: 08-20-2012 End: 09-10-2012 Lipid 1996 panel - Serum or Plasma Saroj Canseco MD Start: 08-20-2012 End: 09-10-2012 *Hepatic Function Panel Saroj Canseco MD Start: 08-20-2012 End: 09-10-2012 Lipid panel [AGGREGATE] Saroj Canseco MD Start: 03-17-2012 End: 03-17-2012 Follow Up Appt 6 months Saroj Canseco MD Start: 03-17-2012 End: 03-17-2012 Follow Up Appt 6 months Saroj Canseco MD Plan of Treatment Date Care Activity Detail Author Start: 10-02-2018 End: 10-02-2018 Appointment Appointment [facility] Work Phone: Start: 10-01-2017 End: 10-01-2017 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 Work Phone: Start: 10-01-2017 End: 10-01-2017 Follow Up Appt 1 year Follow Up Appt 1 year [facility] Work Phone: Start: 10-01-2017 End: 10-01-2017 Appointment Appointment [facility] Work Phone: Start: 10-01-2017 End: 10-01-2017 Appointment Appointment [facility] Work Phone: Start: 01-18-2017 End: 01-18-2017 Stress Echocardiogram (treadmill) Stress Echocardiogram (treadmill) [facility] Work Phone: Start: 01-18-2017 End: 01-18-2017 Stress Echocardiogram (treadmill) Stress Echocardiogram (treadmill) [facility] Work Phone: Start: 01-11-2017 End: 01-14-2017 *BMP *BMP [facility] Work Phone: Start: 01-11-2017 End: 01-11-2017 *CBC with Differential *CBC with Differential [facility] Work Phone: Start: 01-11-2017 End: 01-11-2017 Carotid duplex Carotid duplex [facility] Work Phone: Start: 01-11-2017 End: 01-11-2017 Follow Up Appt Other Follow Up Appt Other [facility] Work Phone: Start: 01-11-2017 End: 01-14-2017 Magnesium *Magnesium [facility] Work Phone: Start: 01-11-2017 End: 01-11-2017 MMM MMM [facility] Work Phone: Start: 01-11-2017 End: 01-17-2017 Nuclear stress test -exercise Nuclear stress test -exercise [facility] Work Phone: Start: 01-11-2017 End: 01-14-2017 Thyroid stimulating hormone (TSH) *TSH [facility] Work Phone: Start: 01-11-2017 End: 01-14-2017 Thyroxine (T4) *T4 (Total) [facility] Work Phone: Start: 01-11-2017 End: 01-14-2017 *BMP *BMP [facility] Work Phone: Start: 01-11-2017 End: 01-11-2017 *CBC with Differential *CBC with Differential [facility] Work Phone: Start: 01-11-2017 End: 01-11-2017 Carotid duplex Carotid duplex [facility] Work Phone: Start: 01-11-2017 End: 01-11-2017 Follow Up Appt Other Follow Up Appt Other [facility] Work Phone: Start: 01-11-2017 End: 01-14-2017 Magnesium *Magnesium [facility] Work Phone: Start: 01-11-2017 End: 01-11-2017 MMM MMM [facility] Work Phone: Start: 01-11-2017 End: 01-17-2017 Nuclear stress test -exercise Nuclear stress test -exercise [facility] Work Phone: Start: 01-11-2017 End: 01-14-2017 Thyroid stimulating hormone (TSH) *TSH [facility] Work Phone: Start: 01-11-2017 End: 01-14-2017 Thyroxine (T4) *T4 (Total) [facility] Work Phone: Start: 09-28-2016 End: 09-28-2016 [employer] JALEN [facility] Work Phone: Start: 09-28-2016 End: 09-28-2016 Follow Up Appt 1 year Follow Up Appt 1 year [facility] Work Phone: Start: 09-28-2016 End: 09-28-2016 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 [facility] Work Phone: Start: 09-28-2016 End: 09-28-2016 Follow Up Appt 1 year Follow Up Appt 1 year [facility] Work Phone: Start: 02-28-2016 End: 02-28-2016 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 [facility] Work Phone: Start: 02-28-2016 End: 02-28-2016 Ecg routine ecg w/least 12 lds w/i&r EKG (In office) [facility] Work Phone: Start: 02-28-2016 End: 02-28-2016 Follow Up Appt 6 months Follow Up Appt 6 months [facility] Work Phone: Start: 02-28-2016 End: 02-28-2016 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 [facility] Work Phone: Start: 02-28-2016 End: 02-28-2016 Electrocardiogram, complete EKG (In office) [facility] Work Phone: Start: 02-28-2016 End: 02-28-2016 Follow Up Appt 6 months Follow Up Appt 6 months [facility] Work Phone: Start: 08-19-2015 End: 08-19-2015 Follow Up Appt 6 months Follow Up Appt 6 months [facility] Work Phone: Start: 08-19-2015 End: 08-19-2015 MMM MMM [facility] Work Phone: Start: 08-19-2015 End: 08-19-2015 Follow Up Appt 6 months Follow Up Appt 6 months [facility] Work Phone: Start: 08-19-2015 End: 08-19-2015 MMM MMM [facility] Work Phone: Start: 11-22-2014 End: 11-22-2014 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 [facility] Work Phone: Start: 11-22-2014 End: 11-22-2014 Follow Up Appt 6 months Follow Up Appt 6 months [facility] Work Phone: Start: 11-22-2014 End: 11-22-2014 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 [facility] Work Phone: Start: 11-22-2014 End: 11-22-2014 Follow Up Appt 6 months Follow Up Appt 6 months [facility] [employer] Work Phone: Start: 07-20-2014 End: 07-21-2014 *BMP *BMP [facility] Work Phone: Start: 07-20-2014 End: 07-21-2014 CBC W Auto Differential panel - Blood *CBC without Diff [facility] Work Phone: Start: 07-20-2014 End: 07-29-2014 Chest x-ray X-Ray, Chest, PA & Lateral [facility] Work Phone: Start: 07-20-2014 End: 07-21-2014 Ecg routine ecg w/least 12 lds w/i&r EKG (In office) [facility] Work Phone: Start: 07-20-2014 End: 07-21-2014 Echocardiography Echocardiogram (complete) [facility] Work Phone: Start: 07-20-2014 End: 08-19-2015 Follow Up Appt 3 months Follow Up Appt 3 months [facility] Work Phone: Start: 07-20-2014 End: 07-21-2014 INR Coag RelTime (PPP) *PT/INR [facility] Work Phone: Start: 07-20-2014 End: 07-21-2014 Left Heart Cath Left Heart Cath [facility] Work Phone: Start: 07-20-2014 End: 08-19-2015 MMM MMM [facility] Work Phone: Start: 07-20-2014 End: 07-21-2014 *BMP *BMP [facility] Work Phone: Start: 07-20-2014 End: 07-21-2014 CBC W Auto Differential panel - Blood *CBC without Diff [facility] Work Phone: Start: 07-20-2014 End: 07-29-2014 Chest x-ray X-Ray, Chest, PA & Lateral [facility] Work Phone: Start: 07-20-2014 End: 07-21-2014 Coagulation factor induced.INR assay in platelet poor plasma *PT/INR [facility] Work Phone: Start: 07-20-2014 End: 07-21-2014 Echocardiography Echocardiogram (complete) [facility] Work Phone: Start: 07-20-2014 End: 07-21-2014 Electrocardiogram, complete EKG (In office) [facility] Work Phone: Start: 07-20-2014 End: 08-19-2015 Follow Up Appt 3 months Follow Up Appt 3 months [facility] Work Phone: Start: 07-20-2014 End: 07-21-2014 Left Heart Cath Left Heart Cath [facility] Work Phone: Start: 07-20-2014 End: 08-19-2015 MMM MMM [facility] Work Phone: Start: 10-26-2013 End: 10-26-2013 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 [facility] Work Phone: Start: 10-26-2013 End: 10-26-2013 Follow Up Appt 6 months Follow Up Appt 6 months [facility] Work Phone: Start: 10-26-2013 End: 10-26-2013 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 [employer] [facility] Work Phone: Start: 10-26-2013 End: 10-26-2013 Follow Up Appt 6 months Follow Up Appt 6 months [facility] Work Phone: Start: 08-18-2013 End: 09-14-2013 *Hepatic Function Panel *Hepatic Function Panel [facility] Work Phone: Start: 08-18-2013 End: 09-14-2013 Lipid panel [AGGREGATE] *Lipid Profile [facility] Work Phone: Start: 08-18-2013 End: 09-14-2013 *Hepatic Function Panel *Hepatic Function Panel [facility] Work Phone: Start: 08-18-2013 End: 09-14-2013 Lipid panel [AGGREGATE] *Lipid Profile [facility] Work Phone: Start: 04-28-2013 End: 04-28-2013 Follow Up Appt 6 months Follow Up Appt 6 months [facility] Work Phone: Start: 04-28-2013 End: 04-28-2013 MMM MMM [facility] Work Phone: Start: 04-28-2013 End: 04-28-2013 Nuclear stress test -exercise Nuclear stress test -exercise [facility] Work Phone: Start: 04-28-2013 End: 04-28-2013 Follow Up Appt 6 months Follow Up Appt 6 months [facility] Work Phone: Start: 04-28-2013 End: 04-28-2013 MMM MMM [facility] Work Phone: Start: 04-28-2013 End: 04-28-2013 Nuclear stress test -exercise Nuclear stress test -exercise [facility] Work Phone: Start: 03-11-2013 End: 03-13-2013 *Hepatic Function Panel *Hepatic Function Panel [facility] Work Phone: Start: 03-11-2013 End: 03-13-2013 Lipid panel [AGGREGATE] *Lipid Profile [facility] Work Phone: Start: 03-11-2013 End: 03-13-2013 *Hepatic Function Panel *Hepatic Function Panel [facility] Phone: Start: 03-11-2013 End: 03-13-2013 Lipid panel [AGGREGATE] *Lipid Profile [facility] Phone: Start: 09-15-2012 End: 09-15-2012 Follow Up Appt 6 months Follow Up Appt 6 months [facility] Work Phone: Start: 09-15-2012 End: 09-15-2012 Follow Up Appt 6 months Follow Up Appt 6 months [facility] Phone: Start: 08-20-2012 End: 09-10-2012 *Hepatic Function Panel *Hepatic Function Panel [facility] [employer] [facility] Phone: Start: 08-20-2012 End: 09-10-2012 Lipid panel [AGGREGATE] *Lipid Profile [facility] Phone: Start: 08-20-2012 End: 09-10-2012 *Hepatic Function Panel *Hepatic Function Panel [facility] Phone: Start: 08-20-2012 End: 09-10-2012 Lipid panel [AGGREGATE] *Lipid Profile [facility] Phone: Start: 03-17-2012 End: 03-17-2012 Follow Up Appt 6 months Follow Up Appt 6 months [facility] Work Phone: Start: 03-17-2012 End: 03-17-2012 Follow Up Appt 6 months Follow Up Appt 6 months [facility] Work Phone: Additional Source Comments FOR RECORDS PERTAINING TO PATIENTS WHO ARE OR HAVE BEEN ENROLLED IN A CHEMICAL DEPENDENCY/SUBSTANCEABUSE PROGRAM, SOME INFORMATION MAY BE OMITTED. This clinical summary was aggregated from multiple sources. Caution should be exercised in using it in the provision of clinical care. This summary normalizes information from multiple sources, and as a consequence, information in this document may materially change the coding, format and clinical context of patient data. In addition, data may be omitted in some cases. CLINICAL DECISIONS SHOULD BE BASED ON THE PRIMARY CLINICAL RECORDS. [facility] [employer] [facility]. provides no warranty or guarantee of the accuracy or completeness of information in this document.
--- NOTE | 2024-01-06 08:31 | CL.D_ITS ---
Patient Name: KATHLEEN MEJIA Study Date: 01/06/2024 Performing: Luigi Quintanilla MD Ht: 66 inches 167.64 cm : 1945 Wt: 189 lbs 85.73 kg Age: 78 Gender: male BSA: 1.95 PROCEDURE(S) PERFORMED DC01-(10148)LHC/COR/LV CLINICAL PROFILE AND INDICATIONS Indications: Worsening Angina Heart Failure: None Stress/Imaging Date: 01/10/23Stress Test with SPECT MPI: Positive Intermediate Risk CAD Presentations: Stable angina. CONCLUSIONS Severe disease noted in the ostial circumflex artery with calcification, moderate calcification noted in the LAD with mild disease, totally occluded chronic right coronary artery with [id number] collaterals and mild to moderate left ventricular systolic dysfunction. RECOMMENDATIONS Patient appears to be asymptomatic at this time with respect to his anginal symptoms since medications were changed. We will therefore consider rotablation with PCI to the ostial circumflex artery and or medical therapy. DESCRIPTION OF PROCEDURE The patient arrived to the procedure lab. The risks and benefits of the procedure as well as a full description of our services here and current unavailability of surgical backup were fully explained to the patient and/or their significant other prior to the catheterization. The Timeout was completed, verifying the correct patient and procedure. The patient's procedural site was prepped and draped in the usual fashion. Local anesthetic was given subcutaneously to right radial region with Lidocaine 2%. Using a modified Seldinger technique, arterial access was obtained via the right radial artery, a 6Fr sheath was inserted. Left Coronary Artery selective angiography was performed in multiple views using a 5 Fr. 4.0 [place] catheter. Right Coronary Artery selective angiography was then performed in multiple views using a 5 Fr. 4.0 [place] catheter. Left Ventriculography was performed in [place] projection using a 5 Fr. [place] catheter. LV to AO pullback pressures were then recorded.The arterial sheath was pulled and a TR Band was applied for hemostasis CORONARY ANGIOGRAPHY DOMINANCE: Right Dominant LEFT HEART ASSESSMENT Left Ventricular Ejection Fraction: by LV Gram 45 % Inferior Mid Hypokinesis - Moderate Depressed Left Ventricular systolic function LEFT MAIN: Mild calcification, Mild luminal irregularities LEFT ANTERIOR DESCENDING ARTERY: Moderate calcification, Mild luminal irregularities less than 30% DIAGONAL 1: Proximal - Mild luminal irregularities less than 30% CIRCUMFLEX ARTERY: Mild luminal irregularities OSTIAL CIRC: 90 % Stenosis RIGHT CORONARY ARTERY: Severely diseased and totally occluded in the midsegment with distal collaterals from left to right. COLLATERAL FLOW: Collateral flow from Left to Right COMPLICATIONS No Complications PROCEDURE MEDICATIONS Fentanyl 50 mcg IV Versed 1 mg IV Oxygen: 2 L/min via nasal cannula Baby Aspirin (81mg) 1 Tabs PO @ 01/06/2024 07:19:25 SUMMARY OF HEMODYNAMIC DATA Time AIR REST ECG 07:05:01 AO 97/59 (74) SA 08:08:28 LV 101/9, 21 08:15:41 LV 103/11, 18 08:15:49 LV 102/13, 22 08:16:28 LV 100/14, 24 08:17:15 LVp 101/16, 23 08:17:19 AOp 104/58 (77) 08:17:26 AIR REST 08:29:33 Signed By Luigi Quintanilla MD On 01/06/2024 08:30:24 Luigi Quintanilla MD
== END 2024-01-06 10:15 | disposition home or self-care (01) ==
PROVIDERS: Physician Assistant Medical; PCP Internal Medicine; Referring Provider Internal Medicine Cardiovascular Disease; Visit Provider Internal Medicine Cardiovascular Disease
DX: I25.118 Atherosclerotic heart disease of native coronary artery with other forms of angina pectoris (principal); I50.9 Heart failure, unspecified; I11.0 Hypertensive heart disease with heart failure; E11.9 Type 2 diabetes mellitus without complications; E78.2 Mixed hyperlipidemia; R06.02 Shortness of breath; I25.2 Old myocardial infarction; Z12.5 Encounter for screening for malignant neoplasm of prostate; Z79.84 Long term (current) use of oral hypoglycemic drugs; Z79.899 Other long term (current) drug therapy; Z79.82 Long term (current) use of aspirin; Z86.16 Personal history of COVID-19; Z87.891 Personal history of nicotine dependence
CPT/HCPCS: 36415; 80053; 82043; 82570; 82607; 83036; 84153; 85025; 85610; 85730; 93458; 99152; 99153; J7040; Q9967; C1769; C1894; G0103

== ENCOUNTER → 2024-06-02 | Outpatient (CLI) | payer MEDICARE, SELFPAY ==
[2024-06-02 12:21] LABS: Absolute Lymphocyte Count 1.76 X10^3/uL (0.83-4.51); Absolute Neutrophil Count 4.4 X10^3/uL (2.0-7.7); Basophil# 0.04 X10^3/uL; Basophil% 0.6 % (0-1); Eosinophil# 0.13 X10^3/uL; Eosinophils% 1.8 % (0-5); Hematocrit 47.1 % (40-54); Hemoglobin 15.3 g/dL (13.0-16.5); Lymphocyte # 1.76 X10^3/ul (0.83-4.51); Lymphocyte % 24.5 % (19-41); Mean Corp Hgb Conc 32.5 g/dL (32-36); Mean Corpuscular Hgb 31.7 pg (27.0-32.0); Mean Corpuscular Volume 97.5 fL (80-94); Mean Platelet Vol. 12.1 fl (6.2-12.0); Monocyte# 0.85 X10^3/uL; Monocyte% 11.8 % (0-10); NRBC Flagged by Analyzer 0 % (0-5); Neutrophil # 4.38 X10^3/uL (2.7-7.7); Neutrophil % 60.9 % (47-70); Platelet Count 176 K/mm3 (150-450); RBC Distribution Width CV 13.4 % (11.6-14.6); RBC Distribution Width SD 48.4 fl (35.1-43.9); Red Blood Count 4.83 M/mm3 (4.6-6.2); White Blood Count 7.2 K/mm3 (4.4-11.0)
[2024-06-02 12:40] LABS: ALB/GLOB Ratio 1.1 RATIO (0.9-2.4); AST(SGOT) 27 U/L (15-37); Alanine Aminotransfer ALT/SGPT 33 U/L (16-61); Albumin, Serum 3.9 g/dL (3.2-5.0); Alkaline Phosphatase 52 U/L (45-117); Anion Gap 7 (5-15); BUN 15 mg/dL (7-18); BUN/Creat Ratio 15.1 RATIO (10-20); Calcium,Total 9.5 mg/dL (8.5-10.1); Chloride 104 mmol/L (98-107); Cholesterol 140 mg/dL (200); Creatinine, Serum 0.99 mg/dL (0.70-1.30); EST Glomerular Filtration Rate 77 mL/min (>60); Est Glom Filt Rate - Afr Amer 93 mL/min (>60); Globulin 3.6 g/dL (2.2-4.2); Glucose 143 mg/dL (74-106); High Density Lipoprotein 53 mg/dL; Potassium 4.9 mmol/L (3.5-5.1); Protein, Total 7.5 g/dL (6.4-8.2); Sodium Level 137 mmol/L (136-145); Triglycerides 162 mg/dL; Very Low Density Lipoprotein 32 mg/dL (5-40)
[2024-06-02 13:22] LABS: Hemoglobin A1c 6.3 % (3.8-5.6)
== END | disposition home or self-care (01) ==
LOC: BIMLAB 07:58
PROVIDERS: PCP Internal Medicine; Referring Provider Internal Medicine; Visit Provider Internal Medicine
DX: E11.69 Type 2 diabetes mellitus with other specified complication (principal)
CPT/HCPCS: 36415; 80053; 80061; 83036; 85025

== ENCOUNTER → 2025-01-14 | Outpatient (CLI) | payer MEDICARE, SELFPAY ==
[2025-01-14 17:59] LABS: Anion Gap 10 (5-15); BUN 19 mg/dL (4-19); BUN/Creat Ratio 19.9 RATIO (10-20); Calcium 9.5 mg/dL (7.6-11.0); Carbon Dioxide 26.9 mmol/L (22.0-29.0); Chloride 101 mmol/L (96-108); EST Glomerular Filtration Rate 81 (>60); Glucose 125 mg/dL (70-99); Potassium 4.6 mmol/L (3.3-5.1); Sodium Level 138 mmol/L (133-145)
== END | disposition home or self-care (01) ==
LOC: BIMLAB 15:08
PROVIDERS: PCP Internal Medicine; Referring Provider Internal Medicine; Visit Provider Internal Medicine
DX: I10 Essential (primary) hypertension (principal)
CPT/HCPCS: 36415; 80048

== ENCOUNTER → 2025-05-20 | Outpatient (CLI) | payer MEDICARE, SELFPAY ==
--- OUTSIDE RECORDS SUMMARY | 2025-05-20 07:22 | XMS RPT_ITS | CCD ---
Author Organization [facility] Care Team Providers Care Low Voltage Electrician Name Role Phone Jamil Vazquez Y Unavailable Unavailable Carmona, Hoda Y Unavailable Mathew Hoda Y Unavailable Lolis CAMPOS, Jessica Street Unavailable Unavailable Dr. Ezequiel Yoo Primary Care Provider [phone] Dr. Ezequiel Yoo Attending Provider [phone] Dr. Ezequiel Yoo Referring Provider [phone] Dr. Vinod Strong Emergency Provider Dr. Tanner Camacho Admit Provider Dr. Tanner Camacho Attending Provider Dr. Tanner Camacho Other Provider Dr. Alex Butts Attending Provider Dr. Alex Butts [facility] Unavailab Dr. Ezequiel Cheung Primary Care Provider [phone] Dr. Ezequiel Yoo Referring Provider [phone] Dr. Luigi Quintanilla Attending Provider [phone] Dr. Ezequiel Yoo Attending Provider [phone] Dr. Ezequiel Yoo Primary Care Provider [phone]) Dr. Ezequiel Yoo Referring Provider [phone] Dr. Luigi Quintanilla Attending Provider [phone] Dr. Ezequiel Yoo Attending Provider [phone] Dr. Luigi Quintanilla Referring Provider [phone] Hayder Grier Attending Provider Dr. Ezequiel Yoo Primary Care Provider [phone] Dr. Ezequiel Yoo Referring Provider [phone] Nakul CEE, JAYE Garland Attending Provider Oleghe, Efewongbe Attending Unavailable Oleghe, Efewongbe Referring Unavailable Oleghe, Efewongbe Primary Care Unavailable Anuel Lazcano NP Attending Unavailable Oleghe, Efewongbe Referring Unavailable Oleghe, Efewongbe Primary Care Unavailable Oleghe, Efewongbe Referring Unavailable Oleghe, Efewongbe Attending Unavailable Oleghe, Efewongbe Primary Care Unavailable Ingrid Blankenship NP Attending Unavailable Oleghe, Efewongbe Referring Unavailable Oleghe, Efewongbe Primary Care Unavailable Oleghe, Efewongbe Attending Unavailable Oleghe, Efewongbe Referring Unavailable Oleghe, Efewongbe Primary Care Unavailable Oleghe, Efewongbe Referring Unavailable Oleghe, Efewongbe Primary Care Unavailable Oleghe, Efewongbe Attending Unavailable Oleghe, Efewongbe Attending Unavailable Oleghe, Efewongbe Referring Unavailable Oleghe, Efewongbe Primary Care Unavailable Oleghe Dr. Ezequiel RESENDIZ Primary Care Provider Dr. Ezequiel Yoo MD Referring Provider [phone] Anuel Shanks Attending Provider [phone] Dr. Ezequiel Yoo MD Attending Provider [phone] Dr. Ezequiel Yoo MD Primary Care Provider Dr. Ezequiel Yoo MD Attending Provider [phone] Dr. Ezequiel Yoo MD Referring Provider [phone] Medications Current Medications Medication Drug Class(es) Dates Sig (Normalized) Sig (Original) aspirin 81 mg delayed release oral tablet (20 sources) Nonsteroidal Anti-inflammatory Drug Start: 04-12-2006 take 1 tablet by mouth once daily ASPIRIN 81 MG TABS One tablet by mouth daily ASPIRIN [id number] Mely Torres Start: 04-12-2006 take 1 tablet by sabina th once daily Aspirin 81 MG tablet,delayed release (DR/EC) Active 81 mg PO DAILY July 27, 2014 12:00am Check with primary doctor Start: 04-12-2006 take 1 tablet by sabina th once daily ASPIRIN 81 MG TABS One tablet by mouth daily ASPIRIN [id number] Mely Torres atorvastatin 40 mg oral tablet (20 sources) HMG-CoA Reductase Inhibitor Start: 04-28-2013 End: 02-15-2025 take 1 tablet by mouth at bedtime Atorvastatin 40 mg tablet Active 40 mg PO AT BEDTIME 90 3 February 15, 2025 11:27am Start: 02-14-2010 take 1 tablet by sabina th once daily LIPITOR 80 MG TABS One tablet by mouth daily ATORVASTATIN CALCIUM [id number] Saroj Canseco MD Blood-Glucose Meter (Freesty le Lite Meter) kit (2 sources) Start: 08-31-2024 Blood-Glucose Meter (Freestyle Lite Meter) kit Active 0 .MEDSUPPLY 1 0 August 31, 2024 12:00am Type 2 diabetes mellitus with hyperglycemia As directed, check blood glucose daily for type 2 DM Start: 08-31-2024 Blood-Glucose Meter (Freestyle Lite Meter) kit Active 0 .MEDSUPPLY 1 August 31, 2024 12:00am As directed, check blood glucose daily for type 2 DM 24 hr metoprolol succinate 50 mg extended release oral tablet (20 sources) beta-Adrenergic Tiffanie Start: 11-27-2017 End: 03-22-2025 take 1 tablet by mouth once daily Metoprolol Succinate 50 mg tablet extended release 24 hr Active 50 mg PO DAILY 90 3 March 22, 2025 10:03am Start: 11-27-2017 End: 01-02-2019 take 1 tablet by mouth every twenty-four hours Metoprolol Succinate 50 mg tablet extended release 24 hr Discontinued 50 mg PO ONCE November 27, 2017 1:00am January 02, 2019 5:44pm Start: 01-11-2017 METOPROLOL TAR TRATE 50 MG TABS one tab twice daily METOPROLOL TARTRATE [id number] Luigi Quintanilla MD Start: 03-03-2010 End: 11-27-2017 take 1 tablet by mouth once daily Metoprolol Succinate 100 MG tablet extended release 24 hr Discontinued 100 mg PO DAILY July 27, 2014 12:00am November 27, 2017 6:50pm Multivitamin With Folic Acid (8 sources) Start: 07-27-2014 take 1 tablet by mouth once daily Multivitamin With Folic Acid Active 1 TABLET PO DAILY July 26, 2014 11:00pm Start: 07-27-2014 take 1 tablet by sabina th once daily Multivitamin With Folic Acid Active 1 TABLET PO DAILY July 27, 2014 12:00am Multivitamin With Folic Acid 1 TABLET tablet (2 sources) Start: 07-27-2014 take 1 tablet by mouth once daily Multivitamin With Folic Acid 1 TABLET tablet Active 1 {tbl} PO DAILY July 27, 2014 12:00am ramipril 2.5 mg oral capsule (20 sources) Angiotensin Converting Enzyme Inhibitor Start: 04-08-2014 End: 03-02-2025 take 1 capsule by mouth once daily Ramipril 2.5 mg capsule Active 2.5 mg PO DAILY 90 March 02, 2025 7:50am Start: 07-25-2010 End: 07-20-2014 take 1 tablet by mouth once daily RAMIPRIL 1.25 MG CAPS One tablet by mouth daily RAMIPRIL [id number] Luigi Quintanilla MD 12 hr ranolazine 500 mg extended release oral tablet (5 sources) Anti-anginal Start: 12-18-2023 End: 11-30-2024 take 1 tablet by mouth twice daily Ranolazine 500 mg tablet extended release 12 hr Active 500 mg PO TWICE A DAY 180 3 November 30, 2024 2:21pm ubidecarenone 200 mg oral capsule (16 sources) Start: 11-27-2017 End: 01-11-2023 Coenzyme Q10 (Co Q-10) 200 mg capsule Active 200 mg PO DAILY January 11, 2023 3:32pm Completed/Discontinued Medications Medication Drug Class(es) Dates Sig (Normalized) Sig (Original) cholecalciferol 0.05 mg oral capsule (16 sources) Vitamin D Start: 01-11-2023 End: 12-18-2023 take 1 capsule by mouth once daily Cholecalciferol (Vitamin D3) 50 mcg (2,000 unit) capsule Discontinued 2000 U PO DAILY January 11, 2023 3:32pm December 18, 2023 11:57am Start: 11-27-2017 End: 01-11-2023 take 1 capsule by mouth once Cholecalciferol (Vitamin D3) 2,000 unit capsule Discontinued 2000 U PO ONCE November 27, 2017 1:00am January 11, 2023 3:33pm dexamethasone 2 mg oral tablet (8 sources) Corticosteroid Start: 06-06-2022 End: 01-11-2023 take 3 tablets by mouth once daily Dexamethasone 2 mg tablet Discontinued 6 mg PO DAILY June 06, 2022 12:00am January 11, 2023 3:32pm Start: 06-06-2022 End: 01-11-2023 take 6 mg by mouth once daily Dexamethasone Discontinu ed 6 MG PO DAILY 14 08June 05, 2022 11:00pm January 11, 2023 2:32pm FAMOTIDINE (8 sources) Histamine-2 Receptor Antagonist Start: 02-01-2003 PEPCID AC 10 MG CHEW As needed FAMOTIDINE [id number] Mely Torres Start: 02-01-2003 End: 07-20-2014 PEPCID AC 10 MG CHEW As need ed FAMOTIDINE [id number] Luigi Quintanilla MD Start: 02-01-2003 End: 07-20-2014 PEPCID AC 10 MG CHEW As need ed FAMOTIDINE [id number] Mely Torres furosemide 20 mg oral tablet (8 sources) Loop Diuretic Start: 06-06-2022 End: 06-11-2022 take 1 tablet by mouth once daily Furosemide 20 mg tablet Discontinued 20 mg PO DAILY June 06, 2022 12:00am June 11, 2022 9:50am 24 hr isosorbide mononitrate 60 mg extended release oral tablet (20 sources) Start: 12-10-2023 End: 12-18-2023 take 1 tablet by mouth once daily, then take 1 tablet by mouth every twenty-four hours Isosorbide Mononitrate 30 mg tablet extended release 24 hr Discontinued 30 mg PO DAILY 17 10December 10, 2023 1:00am December 18, 2023 12:35pm Start: 12-10-2023 End: 12-10-2023 take 1 tablet by mouth once daily, then take 1 tablet by mouth every twenty-four hours Isosorbide Mononitrate 60 mg tablet extended release 24 hr Discontinued 60 mg PO DAILY 17 10December 10, 2023 1:00am December 10, 2023 9:28am Start: 07-28-2014 End: 10-01-2017 take 1 tablet by mouth once daily ISOSORBIDE MONONITRA TE ER 30 MG [id number] One tablet by mouth daily ISOSORBIDE MONONITRATE [id number] Lugii Quintanilla MD Start: 03-03-2010 End: 04-28-2013 take 1 tablet by mouth once daily ISOSORBIDE MONONITRA TE ER 60 MG [id number] One tablet by mouth daily ISOSORBIDE MONONITRATE [id number] Luigi Quintanilla MD meclizine hydrochloride 12.5 mg oral tablet (4 sources) Antiemetic Start: 01-11-2017 MECLIZINE HCL 12.5 MG TABS take 1-2 tabs every 8 hours as needed dizziness MECLIZINE HCL [id number] Beatrice Barry DECKER OPERATOR 24 hr metFORMIN hydrochloride 500 mg extended release oral tablet (20 sources) Biguanide Start: 07-24-2023 End: 12-29-2024 Metformin 500 mg tablet extended release 24 hr Discontinued 1000 mg PO EVERY EVENING 180 90 1 July 14, 2024 12:40pm December 29, 2024 12:38pm Start: 07-24-2023 take 1000 mg by mout h once daily in the evening Metformin Active 1000 MG PO EVERY EVENING July 24, 2023 7:13am Start: 04-29-2023 End: 07-24-2023 Metformin 500 mg tablet exte nded release 24 hr Discontinued 1500 mg PO EVERY EVENING April 29, 2023 7:46am July 24, 2023 8:14am Start: 04-29-2023 End: 07-24-2023 take 1500 mg by mouth once daily in the evening Metformin Discontinued 1500 MG PO EVERY EVENING April 29, 2023 6:46am July 24, 2023 7:14am Start: 01-21-2023 End: 04-29-2023 Metformin 500 mg tablet exte nded release 24 hr Discontinued 2000 mg PO EVERY EVENING 360 90 3 January 21, 2023 6:04pm April 29, 2023 7:46am Start: 01-21-2023 End: 04-29-2023 take 2000 mg by mouth once daily in the evening Metformin Discontinued 2000 MG PO EVERY EVENING 360 90 January 21, 2023 5:04pm April 29, 2023 6:46am Start: 11-03-2020 End: 01-21-2023 Metformin 500 mg tablet exte nded release 24 hr Discontinued 1000 mg PO EVERY EVENING 180 90 3 December 12, 2022 10:19am January 21, 2023 6:04pm Start: 11-03-2020 End: 01-21-2023 take 1000 mg by mouth once daily in the evening Metformin Discontinued 1000 MG PO EVERY EVENING 180 90 December 12, 2022 9:19am January 21, 2023 5:04pm Start: 04-24-2019 End: 11-03-2020 take 1 tablet by mouth once daily in the evening Metformin 500 mg tablet extended release 24 hr Discontinued 500 mg PO EVERY EVENING 90 3 March 07, 2020 9:10am November 03, 2020 4:08pm Start: 11-27-2017 End: 04-24-2019 take 1 tablet by mouth once daily Metformin 500 mg tablet Discontinued 500 mg PO daily 90 3 February 23, 2019 9:28am April 24, 2019 8:24am Start: 09-28-2016 take 1 tablet by sabina once daily METFORMIN HCL 500 MG TABS One tablet by mouth daily METFORMIN HCL [id number] Luigi Quintanilla MD MULTIPLE VITAMIN (1 source) Start: 02-01-2003 take 1 tablet by mouth once daily MULTIVITAMINS TABS One tablet by mouth daily MULTIPLE VITAMIN [id number] Mely Torres MULTIPLE VITAMIN (3 sources) Start: 02-01-2003 take 1 tablet by mouth once daily MULTIVITAMINS TABS One tablet by mouth daily MULTIPLE VITAMIN [id number] Mely Torres nitroglycerin 0.4 mg sublingual tablet (20 sources) Nitrate Vasodilator Start: 07-27-2014 End: 12-18-2023 Nitroglycerin 0.4 mg tablet, sublingual Discontinued 0.4 mg SL NEEDED as needed for Angina 12 12November 01, 2021 12:18pm December 18, 2023 12:36pm Start: 07-27-2014 End: 12-18-2023 Nitroglycerin Active 0.4 MG SL NEEDED December 18, 2023 11:34am Start: 09-04-2010 NITROSTAT 0.4 MG SUBL 1 tablet under tongue every 5 min up to 3 X as needed for chest pain NITROGLYCERIN [id number] Luigi Quintanilla MD Problems Active Problems Problem Classification Problem Date Documented Da te Episodic/Chronic Congestive heart failure; nonhypertensive (11 sources) Heart failure; Translations: [Heart failure with reduced ejection fraction] Onset: 01-26-2011 Resolved: 09-21-2016 01-26-2011 Chronic Coronary atherosclerosis and other heart disease (20 sources) Old myocardial infarction; Translations: [Old myocardial infarction] Onset: 01-26-2011 09-21-2016 Chronic Diabetes mellitus with complications (2 sources) Type 2 diabetes mellitus with other specified complication; Translations: [Type 2 diabetes mellitus with hyperglycemia] Onset: 08-31-2024 Chronic Diabetes mellitus without complication (20 sources) Type 2 diabetes mellitus; Translations: [Type 2 diabetes mellitus without complications] Onset: 04-17-2024 Chronic Disorders of lipid metabolism (20 sources) Hyperlipidemia; Translations: [Hyperlipidemia, unspecified] Onset: 01-26-2011 01-26-2011 Chronic Essential hypertension (20 sources) Hypertensive disorder; Translations: [Essential hypertension] Onset: 01-26-2011 01-26-2011 Chronic Immunizations and screening for infectious disease (7 sources) Needs influenza immunization; Translations: [Encounter for immunization] Onset: 08-31-2024 11-08-2022 Episodic Nonspecific chest pain (11 sources) Chest discomfort; Translations: [Chest pain] Onset: 07-20-2014 Resolved: 08-19-2015 08-19-2015 Episodic Nutritional deficiencies (1 source) Cobalamin deficiency; Translations: [Deficiency of other specified B group vitamins] 05-19-2025 Episodic Other connective tissue disease (10 sources) Foot pain; Translations: [Pain in right foot] 05-04-2021 Episodic Other connective tissue disease (10 sources) Spasm of cervical paraspinous muscle; Translations: [Other muscle spasm] 11-08-2022 Episodic Other connective tissue disease (4 sources) Pain in right foot; Translations: [Pain in limb] Episodic Other ear and sense organ disorders (4 sources) Impacted cerumen; Translations: [Impacted cerumen, bilateral] 04-29-2023 Episodic Other ear and sense organ disorders (1 source) Impacted cerumen, bilateral; Translations: [Impacted cerumen] 04-29-2023 Episodic Other hereditary and degenerative nervous system conditions (2 sources) Impaired cognition; Translations: [Mild cognitive impairment, so stated] 04-17-2024 Chronic Other nutritional; endocrine; and metabolic disorders (5 sources) Body mass index (BMI) 33.0-33.9, adult; Translations: [Body mass index (BMI) 31.0-31.9, adult] Onset: 11-22-2014 11-22-2014 Chronic Other screening for suspected conditions (not mental disorders or infectious disease) (4 sources) Patient encounter status; Translations: [Encounter for screening for nutritional disorder] 07-24-2023 Episodic Unclassified (3 sources) Body mass index (BMI) 31.0-31.9, adult; Translations: [Body mass index (BMI) 31.0-31.9, adult] Onset: 11-22-2014 02-28-2016 Chronic Unclassified (3 sources) Long-term drug therapy; Translations: [Other penitentiary (current) drug therapy] Onset: 01-26-2011 01-26-2011 Unclassified (2 sources) Preoperative cardiovascular examination ; Translations: [Encounter for preprocedural cardiovascular examination] Onset: 10-01-2017 10-01-2017 Viral infection (13 sources) Disease caused by 2019-nCoV; Translations: [COVID-19] Episodic Comment on above: 06/04/2022 Past or Other Problems Problem Classification Problem Date Documented Da te Episodic/Chronic Conditions associated with dizziness or vertigo (4 sources) Dizziness; Translations: [Dizziness and giddiness] Onset: 01-11-2017 01-11-2017 Episodic Coronary atherosclerosis and other heart disease (20 sources) Coronary angioplasty status; Translations: [History of myocardial infarction] Onset: 07-01-1990 01-26-2011 Episodic Comment on above: POBA-LCx 07/01/1990 a nomalous LCx common ostium with RCA Other aftercare (1 source) Other penitentiary (current) drug therapy; Translations: [Other penitentiary (current) drug therapy] Onset: 01-26-2011 01-26-2011 Episodic Other circulatory disease (1 source) History of myocardial infarction; Translations: [Old myocardial infarction] Onset: 01-26-2011 01-26-2011 Episodic Unclassified (4 sources) FH: Raised blood lipids; Translations: [Family history of other endocrine, nutritional and metabolic diseases] 11-22-2014 Episodic Results Test Name Value Interpretation Reference Range Facility BUN/creatinine ratioOrdered By: Ezequiel Yoo on 01-14-2025 Urea nitrogen/Creatinine [Mass ratio] 19.9 mg/mg 10- [facility] Basic Metabolic Profile (BMP )on 01-14-2025 Anion gap [Moles/Vol] 10 mmol/L Normal 5-15 [facility] Comment on above: Performed By: #### L 500.2500 #### [facility] [address] [place], [address] BUN/CRE 19.9 RATIO Normal - [facility] Comment on above: Performed By: #### L 500.2500 #### [facility] [address] [place], [address] Calcium [Mass/Vol] 9.5 mg/dL Normal 7.6-11.0 [facility] Comment on above: Performed By: #### L 500.2500 #### [facility] [address] [place], [address] Chloride [Moles/Vol] 101 mmol/L Normal 96-108 [facility] Comment on above: Performed By: #### L 500.2500 #### [facility] [address] [place], [address] CO2 [Moles/Vol] 26.9 mmol/L Normal 22.0-29.0 [facility] Comment on above: Performed By: #### L 500.2500 #### [facility] [address] [place], [address] Creatinine [Mass/Vol] 1.0 mg/dL Normal 0.8-1.3 [facility] Comment on above: Performed By: #### L 500.2500 #### [facility] [address] [place], [address] GFR/1.73 sq M.predicted among non-blacks MDRD (S/P/Bld) [Vol rate/Area] 81 mL/min/{1.73_m2} Normal >60 [facility] Comment on above: Result Comment: mL/m in/1.73m2 CKD-EPI Creatinine Equation (2020) Performed By: #### L 500.2500 #### [facility] [address] [place], [address] Glucose [Mass/Vol] 125 mg/dL High 70-99 [facility] Comment on above: Performed By: #### L 500.2500 #### [facility] [address] [place], [address] Potassium [Moles/Vol] 4.6 mmol/L Normal 3.3-5.1 [facility] Comment on above: Performed By: #### L 500.2500 #### [facility] [address] [place], [address] Sodium [Moles/Vol] 138 mmol/L Normal 133-145 [facility] Comment on above: Performed By: #### L 500.2500 #### [facility] [address] [place], [address] Urea nitrogen [Mass/Vol] 19 mg/dL Normal 4-19 [facility] Comment on above: Performed By: #### L 500.2500 #### [facility] [address] [place], [address] Carbon dioxide measurementOr dered By: Ezequiel Yoo on 01-14-2025 CO2 [Moles/Vol] 26.9 mmol/L 22.0-29.0 [facility] Chloride measurementOrdered By: Ezequiel Yoo on 01-14-2025 Chloride [Moles/Vol] 101 mmol/L 96-108 [facility] Creatinine [Moles/Vol]Ordere d By: Ezequiel Yoo on 01-14-2025 Creatinine [Mass/Vol] 1.0 mg/dL 0.8-1.3 [facility] GFR/1.73 sq M.predicted efrain g non-blacks MDRD (S/P/Bld) [Vol rate/Area]Ordered By: Ezequiel Yoo on 01-14-2025 Estimated GFR (MDRD) Non-Af Amer 81 >60 [facility] Comment on above: mL/min/1.73m2 CKD-EP I Creatinine Equation (2020) Internal Medicine Office Vis iton 01-14-2025 Internal Medicine Office Visit [facility] [address] [place] [address] [place] [address] OFFICE VISIT Date of Service: 01/14/25 MR#: [id number] Acct: [id number] Name: BRY POTTER Rep #: [id number] : 1945 Provider: Dr. Ezequiel rodriguez MD Age/Sex: 79/M Location: [facility] Status: Signed Intake Vital Signs 08/31/24 08:04 01/08/25 09:03 01/14/25 14:39 Height 5 ft 6 in 5 ft 6 in 5 ft 6 in Weight: 191 lb BMI 30.8 BP 118/78 Blood Pressure Location Lt brachial Position Sitting Respiration 16 Pulse 67 Pulse Source Monitor Temp 97.6 F L Temp Source Temporal Pulse Oximetry (%) 96 Oxygen Delivery Method room air Intake Visit Reasons: 4 m fu Chief Complaint: 4 M FU Is patient in pain?: No Allergies No Known Allergies Allergy (Verified 01/14/25 14:37) Medications ???Medication ???Instructions ???Recorded ???Confirmed ???Type aspirin 81 mg tablet,delayed 81 mg PO DAILY Check with primary 07/27/14 01/14/25 History release doctor multivitamin with folic acid 400 1 tab PO DAILY 07/27/14 01/14/25 H istory mcg tablet coenzyme Q10 200 mg capsule (Co 200 mg PO DAILY 01/11/23 01/14/25 History Q-10) nitroglycerin 0.4 mg sublingual 0.4 mg sublingual PRN PRN Angina 0 12/18/23 01/14/25 Rx tablet #25 tabs metoprolol succinate 50 mg 50 mg PO DAILY #90 tabs 12/23/23 0 01/14/25 Rx tablet,extended release 24 hr atorvastatin 40 mg tablet 40 mg PO QHS #90 tabs 02/10/24 Rx ramipril 2.5 mg capsule 2.5 mg PO DAILY #90 caps 03/23/24 01/14/25 Rx blood sugar diagnostic (FreeStyle #100 ea 08/31/24 01/14/25 Rx Lite Strips) blood-glucose meter (FreeStyle #1 ea 08/31/24 01/14/25 Rx Lite Meter kit) lancets 28 gauge (FreeStyle #200 ea 08/31/24 01/14/25 Rx Lancets) ranolazine 500 mg tablet,extended 500 mg PO BID #180 tabs 11/30/24 01/14/25 Rx release,12 hr metformin 500 mg tablet,extended 1,000 mg (2 x 500 mg) PO QPM 3 10/1201/14/25 Rx release 24 hr months #180 tabs Have you fallen in the past year?: No Nurse's Note: Patient does not have any concerns; reports I feel really good. [facility] Medical History Mild cognitive impairment Encounter for vitamin deficiency screening Bilateral impacted cerumen Flu vaccine need Diabetes Former smoker Congestive heart failure (CHF) Coronary artery disease Myocardial infarct Chest pain COVID-19 Cervical paraspinal muscle spasm Bilateral foot pain Type 2 diabetes mellitus Atherosclerosis of coronary artery of [place] heart without angina pectoris Old inferior wall myocardial infarction Essential (primary) hypertension history left shoulder surgery Hyperlipemia Type 2 diabetes mellitus Surgical History Hx of cardiac cath History of left heart catheterization (07/28/14) History of coronary angioplasty (07/01/90) right eye surgery History of knee surgery History of tonsillectomy History of appendectomy History of back surgery Family History Mother Colon cancer Father Diabetes Brother Diabetes Social History Smoking Status: Former smoker how long ago did patient quit smokin alcohol intake: current alcohol intake frequency: a few times a week Alcohol type: beer and wine substance use type: does not use caffeine: Yes Type: coffee Number of servings: 1 what type of physical activity do you participate in: walking frequency: 3-4 times per week HPI HPI Chief Complaint: 4 M FU Details: BRY POTTER, is a 79 M who presents to the office today for follow-up of his chronic conditions. No acute concerns at this time. A1c today is at 7.2 up from 6.9. Typically over the winter months, less active and eats more. He states that he started making changes. No concerns for hypoglycemia. History of hypertension, blood pressure today at 118/78 mmHg. No chest pain, palpitation or shortness of breath. Other chronic medical conditions are stable. ROS Const Constitutional: No body ache, chills, excessive sweating, fatigue, fever(s), frequent falls, headache(s), snoring, weakness, sleep problems or change in appetite Eyes Eyes: No blurry vision, change in vision, bulging eyes, visual disturbances or Light sensitivity ENT ENT: No abnormal hearing, ear or mastoid pain, tinnitus, balance problems, nosebleed/epistaxis, nasal congestion, nasal discharge, headache(s), neck pain or sore throat Resp Respiratory: No cough, excessive phlegm production, pain on inspiration, shortness of breath, snoring or wheezing Cardio Cardiology: No chest pain at rest, chest pain with exertion, excessive sweating, shortness of breath, (more content not included)... Normal [facility] - Hematology and Cell countsOrdered By: Ezequiel Yoo on 01-14-2025 HbA1c (Bld) [Mass fraction] 7.2 % High 4.2-6.3 [facility] Serum glucose measurement (m ass/volume)Ordered By: Ezequiel Yoo on 01-14-2025 Glucose [Mass/Vol] 125 mg/dL High 70-99 [facility] Serum or plasma anion gap de termination (moles/volume)Ordered By: Ezequiel Yoo on 01-14-2025 Anion gap [Moles/Vol] 10 mmol/L 5-15 [facility] Serum or plasma calcium viktor urement (mass/volume)Ordered By: Ezequiel Yoo on 01-14-2025 Calcium [Mass/Vol] 9.5 mg/dL 7.6-11.0 [facility] Serum or plasma potassium me asurementOrdered By: Ezequiel Yoo on 01-14-2025 Potassium [Moles/Vol] 4.6 mmol/L 3.3-5.1 [facility] Serum or plasma sodium measu rement (moles/volume)Ordered By: Ezequiel Yoo on 01-14-2025 Sodium [Moles/Vol] 138 mmol/L 133-145 [facility] Serum or plasma urea nitroge n measurement (mass/volume)Ordered By: Ezequiel Yoo on 01-14-2025 Urea nitrogen [Mass/Vol] 19 mg/dL 4-19 [facility] Cardiology Visit Reporton Cardiology Visit Report [facility] [address] [place] [address] OFFICE VISIT Date of Service: 01/08/25 MR#: [id number] Acct: [id number] Name: BRY POTTER Rep #: [id number] : 1945 Provider: MARIAMA garcia Age/Sex: 79/M Location: [facility] Status: Signed HPI HPI History of Present Illness Details: Bry Potter is 79 year-old man who presents to the office today for a cardiovascular follow-up visit. He has a history of hypertension, hyperlipidemia, coronary artery disease status post cardiac catheterization 2013 demonstrating a normal left main coronary artery, left anterior descending artery with mild disease involving the proximal diagonal vessel with 56% stenosis, the circumflex artery which was previously stented with 50% in-stent stenosis in the dominant right coronary artery with total mid segment occlusion. Sosz-kj-fvxzn collaterals were noted. He underwent stress testing in 2017 where he exercised 10.1 metabolic equivalents no ischemia was noted and his ejection fraction was preserved at 65 to 70%. He had a stress test in 01/2023, this demonstrated Inferior ischemia noted but known occluded right coronary artery. Medical therapy was recommended. Echocardiogram in 01/2023 demonstrated an EF of 60%. He underwent a cardiac catheterization on 01/06/2024 which demonstrated severe disease noted in the ostial circumflex artery with calcification, moderate calcification noted in the LAD with mild disease, totally occluded chronic right coronary artery with left to right collaterals and mild to moderate left ventricular systolic dysfunction. Due to patient being asymptomatic at that time, medical therapy was recommended. He denies chest, arm, jaw, or neck discomfort. He denies palpitations. He denies bilateral lower extremity edema. He denies claudication. He denies shortness of breath with activity, shortness of breath at rest, orthopnea, or PND. He denies chronic cough. He denies significant, sudden weight gain. He denies lightheadedness, dizziness, near-syncope, or syncope. He denies blood in urine, blood in stool, or epistaxis. He denies fever with chills. He denies myalgia. He denies fatigue. His exercise level has remained stable with regular exercise. Intake Vital Signs 06/10/24 08:56 08/31/24 08:04 01/08/25 09:03 Height 5 ft 6 in 5 ft 6 in 5 ft 6 in Weight: 188 lb 189 lb 190 lb BMI 30.3 30.4 30.7 BP 108/64 120/70 136/81 H Blood Pressure Location Lt brachial Lt brachial Lt brachial Position Sitting Sitting Sitting Respiration 16 16 16 Pulse 59 L 63 73 Pulse Source Monitor Monitor NIBP Temp 97.2 F L Pulse Oximetry (%) 97 99 Oxygen Delivery Method room air room air Intake Visit Reasons: 6 M FU Information Technology Project Manager Required: No Is patient in pain?: No Allergies No Known Allergies Allergy (Verified 01/08/25 09:05) Medications ???Medication ???Instructions ???Recorded ???Confirmed ???Type aspirin 81 mg tablet,delayed 81 mg PO DAILY Check with primary 07/27/14 01/08/25 History release doctor multivitamin with folic acid 400 1 tab PO DAILY 07/27/14 01/08/25 H istory mcg tablet coenzyme Q10 200 mg capsule (Co 200 mg PO DAILY 01/11/23 01/08/25 History Q-10) nitroglycerin 0.4 mg sublingual 0.4 mg sublingual PRN PRN Angina 0 12/18/23 01/08/25 Rx tablet #25 tabs metoprolol succinate 50 mg 50 mg PO DAILY #90 tabs 12/23/23 0 01/08/25 Rx tablet,extended release 24 hr atorvastatin 40 mg tablet 40 mg PO QHS #90 tabs 02/10/24 Rx ramipril 2.5 mg capsule 2.5 mg PO DAILY #90 caps 03/23/24 01/08/25 Rx blood sugar diagnostic (FreeStyle #100 ea 08/31/24 08/31/24 Rx Lite Strips) blood-glucose meter (FreeStyle #1 ea 08/31/24 08/31/24 Rx Lite Meter kit) lancets 28 gauge (FreeStyle #200 ea 08/31/24 08/31/24 Rx Lancets) ranolazine 500 mg tablet,extended 500 mg PO BID #180 tabs 11/30/24 01/08/25 Rx release,12 hr metformin 500 mg tablet,extended 1,000 mg (2 x 500 mg) PO QPM 3 10/1201/08/25 Rx release 24 hr months #180 tabs Ejection fraction %: 60 Have you fallen in the past year?: No PFSH Medical History Mild cognitive impairment Encounter for vitamin deficiency screening Bilateral impacted cerumen Flu vaccine need Diabetes Former smoker Congestive heart failure (CHF) Coronary artery disease Myocardial infarct Chest pain COVID-19 Cervical paraspinal muscle spasm Bilateral foot pain Type 2 diabetes mellitus Atherosclerosis of coronary artery of [place] heart without angina pectoris Old inferior wall myocardial infarction Essential (primary) hypertension history left shoulder surgery Hyperlipemia Type 2 diabetes mellitus Surgical History (Reviewed 01/08/25 @ 09:08 b (more content not included)... Normal [facility] Internal Medicine Office Vis devante 08-31-2024 Internal Medicine Office Visit [facility] [place] [address] OFFICE VISIT Date of Service: 08/31/24 MR#: [id number] Acct: [id number] Name: BRY POTTER Rep #: [id number] : 1945 Provider: Dr. Ezequiel rodriguez MD Age/Sex: 78/M Location: [facility] Status: Signed Intake Vital Signs 04/17/24 08:49 04/17/24 09:25 06/10/24 08:56 08/31/24 08:04 Height 5 ft 6 in 5 ft 6 in 5 ft 6 in 5 ft 6 in Weight: 189 lb BMI 30.4 BP 120/70 Blood Pressure Location Lt brachial Position Sitting Respiration 16 Pulse 63 Pulse Source Monitor Temp 97.2 F L Temp Source Temporal Pulse Oximetry (%) 99 Oxygen Delivery Method room air Intake Visit Reasons: 4 M FU Chief Complaint: 4 M FU Information Technology Project Manager Required: No Accompanied by: Self Is patient in pain?: No Allergies No Known Allergies Allergy (Verified 08/31/24 08:01) Medications ???Medication ???Instructions ???Recorded ???Confirmed ???Type aspirin 81 mg tablet,delayed 81 mg PO DAILY Check with primary 07/27/14 08/31/24 History release doctor multivitamin with folic acid 400 1 tab PO DAILY 07/27/14 08/31/24 History mcg tablet coenzyme Q10 200 mg capsule (Co 200 mg PO DAILY 01/11/23 08/31/24 History Q-10) nitroglycerin 0.4 mg sublingual 0.4 mg sublingual PRN PRN Angina 12/18/23 08/31/24 Rx tablet #25 tabs ranolazine 500 mg tablet,extended 500 mg PO BID #180 tabs 12/18/23 08/31/24 Rx release,12 hr metoprolol succinate 50 mg 50 mg PO DAILY #90 tabs 12/23/23 08/31/24 Rx tablet,extended release 24 hr atorvastatin 40 mg tablet 40 mg PO QHS #90 tabs 02/10/24 08/31/24 Rx ramipril 2.5 mg capsule 2.5 mg PO DAILY #90 caps 03/23/24 08/31/24 Rx metformin 500 mg tablet,extended 1,000 mg (2 x 500 mg) PO QPM 3 07/14/24 08/31/24 Rx release 24 hr months #180 tabs blood sugar diagnostic (FreeStyle #100 ea 08/31/24 08/31/24 Rx Lite Strips) blood-glucose meter (FreeStyle #1 ea 08/31/24 08/31/24 Rx Lite Meter kit) lancets 28 gauge (FreeStyle #200 ea 08/31/24 08/31/24 Rx Lancets) Have you fallen in the past year?: No PFSH Medical History Mild cognitive impairment Encounter for vitamin deficiency screening Bilateral impacted cerumen Flu vaccine need Diabetes Former smoker Congestive heart failure (CHF) Coronary artery disease Myocardial infarct Chest pain COVID-19 Cervical paraspinal muscle spasm Bilateral foot pain Type 2 diabetes mellitus Atherosclerosis of coronary artery of [place] heart without angina pectoris Old inferior wall myocardial infarction Essential (primary) hypertension history left shoulder surgery Hyperlipemia Type 2 diabetes mellitus Surgical History Hx of cardiac cath History of left heart catheterization (07/28/14) History of coronary angioplasty (07/01/90) right eye surgery History of knee surgery History of tonsillectomy History of appendectomy History of back surgery Family History Mother Colon cancer Father Diabetes Brother Diabetes Social History Smoking Status: Former smoker how long ago did patient quit smokin alcohol intake: current alcohol intake frequency: a few times a week Alcohol type: beer and wine substance use type: does not use what type of physical activity do you participate in: walking frequency: 3-4 times per week HPI HPI Chief Complaint: 4 M FU Details: BRY POTTER, is a 78 M who presents to the office today for follow-up of his chronic medical conditions. No acute concerns at this time. History of diabetes mellitus type 2, A1c is at 6.9 up from 6.3. He reports compliance with his medication and states that he has stayed active. Has had some vacations over recent weeks. He plans to make changes to his diet. History of hypertension, blood pressure is at 120/70 mmHg. No chest pain, palpitation or shortness of breath. Also follows up with the heart group. Other chronic conditions are stable. ROS Const Constitutional: No body ache, chills, excessive sweating, fatigue, fever(s), frequent falls, headache(s), snoring, weakness or change in appetite Eyes Eyes: No blurry vision, change in vision, bulging eyes, floaters, eye pain or Light sensitivity ENT ENT: No abnormal hearing, ear or mastoid pain, tinnitus, balance problems, nosebleed/epistaxis, nasal congestion, headache(s), neck pain or sore throat Resp Respiratory: No cough, excessive phlegm production, pain on inspiration, shortness of breath, snoring or wheezing Cardio Cardiology: No chest pain at rest, chest pain with exertion, excessive sweating, dyspnea on exertion, lighthe (more content not included)... Normal [facility] Cardiology Visit Reporton Cardiology Visit Report [facility] [address] [place] [address] OFFICE VISIT Date of Service: 06/10/24 MR#: [id number] Acct: [id number] Name: BRY POTTER Rep #: [id number] : 1945 Provider: MARIAMA moe Age/Sex: 78/M Location: [facility] Status: Signed HPI HPI History of Present Illness Details: Bry Potter is 78 year-old man who presents to the office today for a cardiovascular follow-up visit. He has a history of hypertension, hyperlipidemia, coronary artery disease status post cardiac catheterization 2013 demonstrating a normal left main coronary artery, left anterior descending artery with mild disease involving the proximal diagonal vessel with 56% stenosis, the circumflex artery which was previously stented with 50% in-stent stenosis in the dominant right coronary artery with total mid segment occlusion. Sone-vd-yzuzx collaterals were noted. He underwent stress testing in 2016 where he exercised 10.1 metabolic equivalents no ischemia was noted and his ejection fraction was preserved at 65 to 70%. He had a stress test in 01/2023, this demonstrated Inferior ischemia noted but known occluded right coronary artery. Medical therapy was recommended. Echocardiogram in 01/2023 demonstrated an EF of 60%. He underwent a cardiac catheterization on 01/06/2024 which demonstrated severe disease noted in the ostial circumflex artery with calcification, moderate calcification noted in the LAD with mild disease, totally occluded chronic right coronary artery with left to right collaterals and mild to moderate left ventricular systolic dysfunction. Due to patient being asymptomatic at that time, medical therapy was recommended. From a cardiac standpoint, the patient is doing well. He denies any palpitations, chest pain, pressure or heaviness. He denies SOB, Orthopnea, and PND. He does not have bleeding issues; no blood in urine, stool or nosebleeds. He denies any decrease in energy level, myalgias, or claudication. He does not have edema, or sudden weight gain. He denies dizziness, lightheadedness, syncopal or near syncopal episodes, and headaches. Intake Vital Signs 01/09/24 08:46 04/17/24 09:25 06/10/24 08:56 Height 5 ft 6 in 5 ft 6 in 5 ft 6 in Weight: 188 lb BMI 30.3 BP 108/64 Blood Pressure Location Lt brachial Position Sitting Respiration 16 Pulse 59 L Pulse Source Monitor Pulse Oximetry (%) 97 Oxygen Delivery Method room air Intake Visit Reasons: 5 m fu Accompanied by: Self Is patient in pain?: Yes (B/L foot) Pain scale (1-10): 4 Allergies No Known Allergies Allergy (Verified 06/10/24 09:03) Medications ???Medication ???Instructions ???Recorded ???Confirmed ???Type aspirin 81 mg tablet,delayed 81 mg PO DAILY Check with primary 07/27/14 06/10/24 History release doctor multivitamin with folic acid 400 1 tab PO DAILY 07/27/14 06/10/24 History mcg tablet coenzyme Q10 200 mg capsule (Co 200 mg PO DAILY 01/11/23 06/10/24 History Q-10) metformin 500 mg tablet,extended 1,000 mg PO QPM 07/24/23 06/10/24 History release 24 hr nitroglycerin 0.4 mg sublingual 0.4 mg sublingual PRN PRN Angina 12/18/23 06/10/24 Rx tablet #25 tabs ranolazine 500 mg tablet,extended 500 mg PO BID #180 tabs 12/18/23 06/10/24 Rx release,12 hr metoprolol succinate 50 mg 50 mg PO DAILY #90 tabs 12/23/23 06/10/24 Rx tablet,extended release 24 hr atorvastatin 40 mg tablet 40 mg PO QHS #90 tabs 02/10/24 06/10/24 Rx ramipril 2.5 mg capsule 2.5 mg PO DAILY #90 caps 03/23/24 06/10/24 Rx Ejection fraction %: 60 Have you fallen in the past year?: No PFSH Medical History Mild cognitive impairment Encounter for vitamin deficiency screening Bilateral impacted cerumen Flu vaccine need Diabetes Former smoker Congestive heart failure (CHF) Coronary artery disease Myocardial infarct Chest pain COVID-19 Cervical paraspinal muscle spasm Bilateral foot pain Type 2 diabetes mellitus Atherosclerosis of coronary artery of [place] heart without angina pectoris Old inferior wall myocardial infarction Essential (primary) hypertension history left shoulder surgery Hyperlipemia Type 2 diabetes mellitus Surgical History Hx of cardiac cath History of left heart catheterization (07/28/14) History of coronary angioplasty (07/01/90) right eye surgery History of knee surgery History of tonsillectomy History of appendectomy History of back surgery Family History Mother Colon cancer Father Diabetes Brother Diabetes Social History Smoking Status: Former (more content not included)... Normal [facility] CBC W/Diff, Automatedon 05-18 Absolute Lymph 1.76 X10 3/uL Normal 0.83-4.51 [facility] Comment on above: Performed By: #### L 500.4050, L500.4100, L100.0100, L501.9985 #### [facility] [address] [place], [place], [id number] Absolute Neut 4.4 X10 3/uL Normal 2.0-7.7 [facility] Comment on above: Performed By: #### L 500.4050, L500.4100, L100.0100, [id number] #### [facility] [address] [place], [address] Basophils/100 WBC (Bld) 0.6 % Normal 0-1 [facility] Comment on above: Performed By: #### L 500.4050, L500.4100, L100.0100, [id number] #### [facility] [address] [place], [address] Eosinophils/100 WBC (Bld) 1.8 % Normal 0-5 [facility] Comment on above: Performed By: #### L 500.4050, L500.4100, L100.0100, L501.9985 #### [facility] [address] [place], [address] Erythrocyte distribution width (RBC) [Ratio] 13.4 % Normal 11.6-14.6 [facility] Comment on above: Performed By: #### L 500.4050, L500.4100, L100.0100, [id number] #### [facility] [address] [place], [address] Hematocrit (Bld) [Volume fraction] 47.1 % Normal 40-54 [facility] Comment on above: Performed By: #### L 500.4050, L500.4100, L100.0100, [id number] #### [facility] [address] [place], [address] Hemoglobin (Bld) [Mass/Vol] 15.3 g/dL Normal 13.0-16.5 [facility] Comment on above: Performed By: #### L 500.4050, L500.4100, L100.0100, L501.9985 #### [facility] [address] [place], [address] IG% 0.400 Normal 0.0-0.9 [facility] Comment on above: Result Comment: IG% - Immature Granulocytes (promyelocytes, myelocytes and metamyelocytes) > 1% indicates that a LEFT SHIFT is Present. Performed By: #### L 500.4050, L500.4100, L100.0100, L501.9985 #### [facility] [address] [place], [address] Lymphocytes/100 WBC (Bld) 24.5 % Normal 19-41 [facility] Comment on above: Performed By: #### L 500.4050, L500.4100, L100.0100, [id number] #### [facility] [address] [place], [address] MCH (RBC) [Entitic mass] 31.7 pg Normal 27.0-32.0 [facility] Comment on above: Performed By: #### L 500.4050, L500.4100, L100.0100, [id number] #### [facility] [address] [place], [address] MCHC (RBC) [Mass/Vol] 32.5 g/dL Normal 32-36 [facility] Comment on above: Performed By: #### L 500.4050, L500.4100, L100.0100, [id number] #### [facility] [address] [place], [address] MCV (RBC) [Entitic vol] 97.5 fL High 80-94 [facility] Comment on above: Performed By: #### L 500.4050, L500.4100, L100.0100, [id number] #### [facility] [address] [place], [address] Monocytes/100 WBC (Bld) 11.8 % High 0-10 [facility] Comment on above: Performed By: #### L 500.4050, L500.4100, L100.0100, [id number] #### [facility] [address] [place], [address] Neutrophils/100 WBC (Bld) 60.9 % Normal 47-70 [facility] Comment on above: Performed By: #### L 500.4050, L500.4100, L100.0100, [id number] #### [facility] [address] [place], [address] Nucleated RBC (Bld) [#/Vol] 0 10*3/uL Normal 0-5 [facility] Comment on above: Performed By: #### L 500.4050, L500.4100, L100.0100, L501.9985 #### [facility] [address] [place], [address] Platelet mean volume (Bld) [Entitic vol] 12.1 fL High 6.2-12.0 [facility] Comment on above: Performed By: #### L 500.4050, L500.4100, L100.0100, L501.9985 #### [facility] [address] [place], [address] Platelets (Bld) [#/Vol] 176 10*3/uL Normal 150-450 [facility] Comment on above: Performed By: #### L 500.4050, L500.4100, L100.0100, [id number] #### [facility] [address] [place], [address] RBC (Bld) [#/Vol] 4.83 10*6/uL Normal 4.6-6.2 [facility] Comment on above: Performed By: #### L 500.4050, L500.4100, L100.0100, L501.9985 #### [facility] [address] [place], [address] RDW SD 48.4 fl High 35.1-43.9 [facility] Comment on above: Performed By: #### L 500.4050, L500.4100, L100.0100, [id number] #### [facility] [address] [place], [address] WBC (Bld) [#/Vol] 7.2 10*3/uL Normal 4.4-11.0 [facility] Comment on above: Performed By: #### L 500.4050, L500.4100, L100.0100, L501.9985 #### [facility] [address] [place], [address] Comprehensive Metabolic Prof ilon 06-02-2024 Albumin [Mass/Vol] 3.9 g/dL Normal 3.2-5.0 [facility] Comment on above: Performed By: #### L 500.4050, L500.4100, L100.0100, L501.9985 #### [facility] [address] [place], [address] Albumin/Globulin [Mass ratio] 1.1 {ratio} Normal 0.9-2.4 [facility] Comment on above: Performed By: #### L 500.4050, L500.4100, L100.0100, L501.9985 #### [facility] [address] [place], [address] ALK P 52 U/L Normal 45-117 [facility] Comment on above: Performed By: #### L 500.4050, L500.4100, L100.0100, [id number] #### [facility] [address] [place], [address] ALT [Catalytic activity/Vol] 33 U/L Normal 16-61 [facility] Comment on above: Performed By: #### L 500.4050, L500.4100, L100.0100, L501.9985 #### [facility] [address] [place], [address] AST [Catalytic activity/Vol] 27 U/L Normal 15-37 [facility] Comment on above: Performed By: #### L 500.4050, L500.4100, L100.0100, L501.9985 #### [facility] [address] [place], [address] Bilirubin [Mass/Vol] 0.70 mg/dL Normal 0.20-1.00 [facility] Comment on above: Result Comment: For patients on eltrombopag therapy, use of Dimension Hessmer TBIL is not recommended. Performed By: #### L 500.4050, L500.4100, L100.0100, L501.9985 #### [facility] [address] [place], [address] BUN/CRE 15.1 RATIO Normal 10-20 [facility] Comment on above: Performed By: #### L 500.4050, L500.4100, L100.0100, L501.9985 #### [facility] [address] [place], [address] CA,Total 9.5 mg/dL Normal 8.5-10.1 [facility] Comment on above: Performed By: #### L 500.4050, L500.4100, L100.0100, L501.9985 #### [facility] [address] [place], [address] Chloride [Moles/Vol] 104 mmol/L Normal 98-107 [facility] Comment on above: Performed By: #### L 500.4050, L500.4100, L100.0100, L501.9985 #### [facility] [address] [place], [address] CO2 [Moles/Vol] 26.0 mmol/L Normal 21.0-32.0 [facility] Comment on above: Performed By: #### L 500.4050, L500.4100, L100.0100, L501.9985 #### [facility] [address] [place], [address] Creatinine [Mass/Vol] 0.99 mg/dL Normal 0.70-1.30 [facility] Comment on above: Result Comment: The validity of the calculated GFR GFRAA in patients over 70 years has not been determined. Clinical correlation is essential. Performed By: #### L 500.4050, L500.4100, L100.0100, L501.9985 #### [facility] [address] [place], [address] EST GFR - AA 93 mL/min Normal >60 [facility] Comment on above: Result Comment: Afri can Tajik GFR Calc Performed By: #### L 500.4050, L500.4100, L100.0100, L501.9985 #### [facility] [address] [place], [address] GAP 7 Normal 5-15 [facility] Comment on above: Performed By: #### L 500.4050, L500.4100, L100.0100, L501.9985 #### [facility] [address] [place], [address] GFR/1.73 sq M.predicted among non-blacks MDRD (S/P/Bld) [Vol rate/Area] 77 mL/min/{1.73_m2} Normal >60 [facility] Comment on above: Result Comment: Non- GFR Calc Performed By: #### L 500.4050, L500.4100, L100.0100, L501.9985 #### [facility] [address] [place], [address] Globulin (S) [Mass/Vol] 3.6 g/dL Normal 2.2-4.2 [facility] Comment on above: Performed By: #### L 500.4050, L500.4100, L100.0100, L501.9985 #### [facility] [address] [place], [address] Glucose [Mass/Vol] 143 mg/dL High 74-106 [facility] Comment on above: Result Comment: Fast ing Glucose result greater than or equal to 126 mg/dL suggests DIABETES MELLITUS per A.D.A. criteria. Performed By: #### L 500.4050, L500.4100, L100.0100, L501.9985 #### [facility] [address] [place], [address] Potassium [Moles/Vol] 4.9 mmol/L Normal 3.5-5.1 [facility] Comment on above: Performed By: #### L 500.4050, L500.4100, L100.0100, L501.9985 #### [facility] [address] [place], [address] Sodium [Moles/Vol] 137 mmol/L Normal 136-145 [facility] Comment on above: Performed By: #### L 500.4050, L500.4100, L100.0100, L501.9985 #### [facility] [address] [place], [address] T PROT 7.5 g/dL Normal 6.4-8.2 [facility] Comment on above: Performed By: #### L 500.4050, L500.4100, L100.0100, L501.9985 #### [facility] [address] [place], [address] Urea nitrogen [Mass/Vol] 15 mg/dL Normal 7-18 [facility] Comment on above: Performed By: #### L 500.4050, L500.4100, L100.0100, L501.9985 #### [facility] [address] [place], [address] Hemoglobin A1con 06-02-2024 HbA1c (Bld) [Mass fraction] 6.3 % High 3.8-5.6 [facility] Comment on above: Result Comment: Norm al < 5.7 % Prediabetic 5.7 - 6.4 % Diabetic >or= 6.5 % Please note range changes. Performed By: #### L 500.4050, L500.4100, L100.0100, L501.9985 #### [facility] [address] [place], [address] Lipid Profileon 06-02-2024 Cholesterol [Mass/Vol] 140 mg/dL Normal 200 [facility] Comment on above: Result Comment: <200 mg/dL Desirable 200-240 mg/dL Borderline >240 mg/dL High Risk Performed By: #### L 500.4050, L500.4100, L100.0100, L501.9985 #### [facility] [address] [place], [address] Cholesterol in HDL [Mass/Vol] 53 mg/dL Normal [facility] Comment on above: Result Comment: The drugs N-Acetylcysteine and Metamizole may falsely depress this assay. Reference Range HDL <40 mg/dL Low HDL Cholesterol HDL >or= 60 mg/dL High HDL Cholesterol Performed By: #### L 500.4050, L500.4100, L100.0100, L501.9985 #### [facility] [address] [place], [address] Cholesterol in LDL [Mass/Vol] 55 mg/dL Normal 0-130 [facility] Comment on above: Performed By: #### L 500.4050, L500.4100, L100.0100, L501.9985 #### [facility] [address] [place], [address] Cholesterol in VLDL [Mass/Vol] 32 mg/dL Normal 5-40 [facility] Comment on above: Performed By: #### L 500.4050, L500.4100, L100.0100, L501.9985 #### [facility] [address] [place], [address] Triglyceride [Mass/Vol] 162 mg/dL Normal [facility] Comment on above: Result Comment: The drugs N-Acetylcysteine and Metamizole may falsely depress this assay. Serum Triglycerides Reference Interval Normal <150 mg/dL Borderline high 150 - 199 mg/dL High 200 - 499 mg/dL Very High > or = 500 mg/dL Performed By: #### L 500.4050, L500.4100, L100.0100, L501.9985 #### [facility] [address] [place], [address] Internal Medicine Office Vis ito 04-17-2024 Internal Medicine Office Visit [facility] [address] [place] [address] [place] [address] OFFICE VISIT Date of Service: 04/17/24 MR#: [id number] Acct: [id number] Name: BRY POTTER Rep #: [id number] : 1945 Provider: Dr. Ezequiel rodriguez MD Age/Sex: 78/M Location: [facility] Status: Signed Intake Vital Signs 01/10/24 09:21 04/17/24 08:49 Height 5 ft 6 in 5 ft 6 in Weight: 185 lb BMI 29.8 BP 128/60 H Blood Pressure Location Lt brachial Position Sitting Respiration 17 Pulse 61 Pulse Source Monitor Temp 96.5 F L Temp Source Temporal Pulse Oximetry (%) 99 Oxygen Delivery Method room air Intake Visit Reasons: 3 M FU Chief Complaint: 3 M FU Is patient in pain?: No Allergies No Known Allergies Allergy (Verified 04/17/24 08:48) Medications ???Medication ???Instructions ???Recorded ???Confirmed ???Type aspirin 81 mg tablet,delayed 81 mg PO DAILY Check with primary 07/27/14 04/17/24 History release doctor multivitamin with folic acid 400 1 tab PO DAILY 07/27/14 04/17/24 History mcg tablet coenzyme Q10 200 mg capsule (Co 200 mg PO DAILY 01/11/23 04/17/24 History Q-10) metformin 500 mg tablet,extended 1,000 mg PO QPM 07/24/23 04/17/24 History release 24 hr nitroglycerin 0.4 mg sublingual 0.4 mg sublingual PRN PRN Angina 12/18/23 04/17/24 Rx tablet #25 tabs ranolazine 500 mg tablet,extended 500 mg PO BID #180 tabs 12/18/23 04/17/24 Rx release,12 hr metoprolol succinate 50 mg 50 mg PO DAILY #90 tabs 12/23/23 04/17/24 Rx tablet,extended release 24 hr atorvastatin 40 mg tablet 40 mg PO QHS #90 tabs 02/10/24 04/17/24 Rx ramipril 2.5 mg capsule 2.5 mg PO DAILY #90 caps 03/23/24 04/17/24 Rx PFSH Medical History Mild cognitive impairment Encounter for vitamin deficiency screening Bilateral impacted cerumen Flu vaccine need Diabetes Former smoker Congestive heart failure (CHF) Coronary artery disease Myocardial infarct Chest pain COVID-19 Cervical paraspinal muscle spasm Bilateral foot pain Type 2 diabetes mellitus Atherosclerosis of coronary artery of [place] heart without angina pectoris Old inferior wall myocardial infarction Essential (primary) hypertension history left shoulder surgery Hyperlipemia Type 2 diabetes mellitus Surgical History Hx of cardiac cath History of left heart catheterization (07/28/14) History of coronary angioplasty (07/01/90) right eye surgery History of knee surgery History of tonsillectomy History of appendectomy History of back surgery Family History Mother Colon cancer Father Diabetes Brother Diabetes Social History Smoking Status: Former smoker how long ago did patient quit smokin alcohol intake: current alcohol intake frequency: a few times a month Alcohol type: beer and wine substance use type: does not use what type of physical activity do you participate in: walking frequency: 3-4 times per week HPI HPI Chief Complaint: 3 M FU Details: BRY POTTER, is a 78 M who presents to the office today for follow-up of his chronic medical conditions. No concerns at this time. Concern for forgetfulness reported at his last visit. Mini-Mental state exam done at his last visit and he had a score 29. No significant changes since his last visit. Was referred to the [place] program however he states that he went on vacation and forgot to follow through. He is not sure he wants to at this time. he believes that he has been stable. Mini-mental state today at 30. A1c is at 6.3 down from 6.7. Currently on metformin 1000 mg daily which she is taking as prescribed. No concerns for hypoglycemia. Stays active. Feels well. Other chronic medical conditions are stable. ROS Const Constitutional: No body ache, chills, excessive sweating, fatigue, fever(s), frequent falls, headache(s), snoring, weight change, sleep problems, abnormal sleep pattern or change in appetite Eyes Eyes: No blurry vision, change in vision, floaters, visual disturbances, eye pain or Light sensitivity ENT ENT: No abnormal hearing, ear or mastoid pain, tinnitus, balance problems, nosebleed/epistaxis, nasal congestion, headache(s), neck pain or sore throat Resp Respiratory: No cough, excessive phlegm production, pain on inspiration, shortness of breath, snoring or wheezing Cardio Cardiology: No chest pain at rest, chest pain with exertion, excessive sweating, shortness of breath, dyspnea on exertion, lightheadedness, orthopnea or palpitations Gastro GI: No abdominal pain, change in bowel habits, constipation, cramping, diarrhea, nausea/dyspeps (more content not included)... Normal [facility] Absolute lymphocyte countOrd ered By: Ezequiel Yoo on 12-27-2023 Lymphocytes Auto (Unsp spec) [#/Vol] 1.83 10*3/uL 0.83-4.51 [facility] Activated partial thrombopla stin time (aPTT) in platelet poor plasma by coagulation aOrdered By: Ksenia Mota on 12-27-2023 aPTT Coag (PPP) [Time] 26.2 s 24.1-36.2 [facility] Automated lymphocyte count a s percentage of total leukocytesOrdered By: Ezequiel Yoo on 12-27-2023 Lymphocytes/100 WBC Auto (Unsp spec) 27.4 % 19-41 [facility] Basophil percentageOrdered B y: Ezequiel Yoo on 12-27-2023 Basophils/100 WBC (Bld) 0.7 % 0-1 [facility] Bilirubin [Mass/Vol] 0.70 mg/dL 0.20-1.00 [facility] Comment on above: For patients on eltr ombopag therapy, use of Dimension [place]mer TBIL is not recommended. Chloride [Moles/Vol] 105 mmol/L 98-107 [facility] Eosinophils/100 WBC (Bld) 2.8 % 0-5 [facility] Glucose [Mass/Vol] 148 mg/dL 74-106 [facility] Comment on above: Fasting Glucose resu lt greater than or equal to 126 mg/dL suggests DIABETES MELLITUS per A.D.A. criteria. Hemoglobin (Bld) [Mass/Vol] 15.4 g/dL 13.0-16.5 [facility] Monocytes/100 WBC (Bld) 11.7 % 0-10 [facility] Neutrophils (Bld) [#/Vol] 3.8 10*3/uL 2.0-7.7 [facility] Neutrophils/100 WBC (Bld) 57.0 % 47-70 [facility] Potassium [Moles/Vol] 4.4 mmol/L 3.5-5.1 [facility] Protein [Mass/Vol] 7.4 g/dL 6.4-8.2 [facility] Sodium [Moles/Vol] 138 mmol/L 136-145 [facility] WBC (Bld) [#/Vol] 6.7 10*3/uL 4.4-11.0 [facility] Determination of erythrocyte mean corpuscular volume (MCV)Ordered By: Ezequiel Yoo on 12-27-2023 MCV (RBC) [Entitic vol] 96.1 fL 80-94 [facility] Erythrocyte distribution wid th ratioOrdered By: Ezequiel Yoo on 12-27-2023 Erythrocyte distribution width (RBC) [Ratio] 13.5 % 11.6-14.6 [facility] Erythrocyte distribution wid th standard deviationOrdered By: Ezequiel Yoo on 12-27-2023 Erythrocyte distribution width (RBC) [Entitic vol] 48.1 fL 35.1-43.9 [facility] Hematocrit Auto (Bld) [Volum e fraction]Ordered By: Ezequiel Yoo on 12-27-2023 Hematocrit (Bld) [Volume fraction] 47.2 % 40-54 [facility] Immature granulocytes/100 WB C Auto (Bld)Ordered By: Ezequiel Yoo on 12-27-2023 Immature granulocytes/100 WBC (Bld) 0.400 % 0.0-0.9 [facility] Comment on above: IG% - Immature Granu locytes (promyelocytes, myelocytes and metamyelocytes) > 1% indicates that a LEFT SHIFT is Present. Laboratory - Chemistry and C hemistry - challengeOrdered By: Ezequiel Yoo on 12-27-2023 Albumin/Globulin [Mass ratio] 1.1 {ratio} 0.9-2.4 [facility] ALP [Catalytic activity/Vol] 47 U/L 45-117 [facility] ALT [Catalytic activity/Vol] 33 U/L 16-61 [facility] CO2 [Moles/Vol] 27.0 mmol/L 21.0-32.0 [facility] Cobalamin (Vitamin B12) [Mass/Vol] 388 pg/mL 211-911 [facility] Globulin (S) [Mass/Vol] 3.6 g/dL 2.2-4.2 [facility] Urea nitrogen/Creatinine [Mass ratio] 18.5 mg/mg 10-20 [facility] - CoagulationOrde red By: Ksenia Mota on 12-27-2023 INR Coag (Bld) [Relative time] 1.0 {INR} [facility] PT Coag (PPP) [Time] 12.6 s 11.7-14.9 [facility] Laboratory - Hematology and Cell countsOrdered By: Ezequiel Yoo on 12-27-2023 MCH (RBC) [Entitic mass] 31.4 pg 27.0-32.0 [facility] MCHC (RBC) [Mass/Vol] 32.6 g/dL 32-36 [facility] Nucleated RBC/100 WBC (Bld) [Ratio] 0 % 0-5 [facility] Platelet mean volume (Bld) [Entitic vol] 11.6 fL 6.2-12.0 [facility] Platelets (Bld) [#/Vol] 201 10*3/uL 150-450 [facility] No Panel InformationOrdered By: Ezequiel Yoo on 12-27-2023 Estimated GFR (MDRD) Amer 85 mL/min >60 [facility] Comment on above: GFR Calc Estimated GFR (MDRD) Non-Af Amer 70 mL/min >60 [facility] Comment on above: Non- GFR Calc Prostate Specific Antigen Screen 1.54 ng/mL 0.00-4.00 [facility] Comment on above: This test was perfor med using the TPSA assay method for [employer] chemistry system. Values obtained with differentassay methods cannot be used interchangably.When changing PSA assays in the course of monitoring apatient, additional sequential testing should be carriedout to confirm baseline values. Urine Microalbumin/Creatinin e Ratio 7.4 mg/g CRE <30 [facility] RBC Auto (Bld) [#/Vol]Ordere d By: Ezequiel Yoo on 12-27-2023 RBC (Bld) [#/Vol] 4.91 10*6/uL 4.6-6.2 [facility] Serum or plasma calcium viktor urement (mass/volume)Ordered By: Ezequiel Yoo on 12-27-2023 Calcium [Mass/Vol] 9.2 mg/dL 8.5-10.1 [facility] Serum or plasma creatinine m easurement (mass/volume)Ordered By: Ezequiel Yoo on 12-27-2023 Creatinine [Mass/Vol] 1.08 mg/dL 0.70-1.30 [facility] Comment on above: The validity of the calculated GFR & GFRAA in patients over 70 years has not been determined. Clinical correlation is essential. Serum or plasma urea nitroge n measurement (mass/volume)Ordered By: Ezequiel Yoo on 12-27-2023 Urea nitrogen [Mass/Vol] 20 mg/dL 7-18 [facility] Thin prep Papanicolaou smear with manual screeningOrdered By: Ezequiel Yoo on 12-27-2023 Thin prep Papanicolaou smear with manual screening 3.8 g/dL 3.2-5.0 [facility] Thin prep Papanicolaou smear with manual screening 25 U/L 15-37 [facility] Thin prep Papanicolaou smear with manual screening 6 5-15 [facility] Thin prep Papanicolaou smear with manual screening 11.1 mg/L NO RANGE EST. [facility] Urine creatinine measurement (mass/volume)Ordered By: Ezequiel Yoo on 12-27-2023 Creatinine (U) [Mass/Vol] 149.00 mg/dL NO RANGE EST. [facility] Whole blood hemoglobin A1c/t otal hemoglobin ratio (mass fraction)Ordered By: Ezequiel Yoo on 12-27-2023 HbA1c (Bld) [Mass fraction] 6.7 % 3.8-5.6 [facility] Comment on above: Normal < 5.7 % Predi abetic 5.7 - 6.4 % Diabetic >or= 6.5 % Please note range changes. Basophil percentageOrdered B y: Dr. Yoo on 04-29-2023 Bilirubin [Mass/Vol] 0.50 mg/dL 0.20-1.00 [facility] Comment on above: For patients on eltr ombopag therapy, use of Dimension [place] TBIL is not recommended. Chloride [Moles/Vol] 105 mmol/L 98-107 [facility] Cholesterol [Mass/Vol] 130 mg/dL <200 [facility] Comment on above: <200 mg/dL Desirable 200-240 mg/dL Borderline >240 mg/dL High Risk Glucose [Mass/Vol] 108 mg/dL 74-106 [facility] Comment on above: Fasting Glucose resu lt from 100 to 125 mg/dL suggests IMPAIRED HOMEOSTASIS per A.D.A. criteria. Potassium [Moles/Vol] 4.7 mmol/L 3.5-5.1 [facility] Protein [Mass/Vol] 7.7 g/dL 6.4-8.2 [facility] Sodium [Moles/Vol] 138 mmol/L 136-145 [facility] Triglyceride [Mass/Vol] 71 mg/dL <199 [facility] Comment on above: The drugs N-Acetylcy steine and Metamizole may falsely depress this assay.Serum Triglycerides Reference Interval Normal <150 mg/dL Borderline high 150 - 199 mg/dL High 200 - 499 mg/dL Very High > or = 500 mg/dL Direct bilirubinOrdered By: Dr. Yoo on 04-29-2023 Bilirubin.direct [Mass/Vol] 0.17 mg/dL 0.00-0.30 [facility] - Chemistry and C hemistry - challengeOrdered By: Dr. Yoo on 04-29-2023 ALP [Catalytic activity/Vol] 54 U/L 45-117 [facility] ALT [Catalytic activity/Vol] 32 U/L 16-61 [facility] CO2 [Moles/Vol] 29.0 mmol/L 21.0-32.0 [facility] Globulin (S) [Mass/Vol] 3.8 g/dL 2.2-4.2 [facility] Urea nitrogen/Creatinine [Mass ratio] 18.5 mg/mg 10-20 [facility] No Panel InformationOrdered By: Dr. Yoo on 04-29-2023 Estimated GFR (MDRD) Amer 102 mL/min >60 [facility] Comment on above: GFR Calc Estimated GFR (MDRD) Non-Af Amer 84 mL/min >60 [facility] Comment on above: Non- GFR Calc Serum or plasma albumin viktor urement (mass/volume)Ordered By: Dr. Yoo on 04-29-2023 Albumin [Mass/Vol] 3.9 g/dL 3.2-5.0 [facility] Serum or plasma calcium viktor urement (mass/volume)Ordered By: Dr. Yoo on 04-29-2023 Calcium [Mass/Vol] 9.7 mg/dL 8.5-10.1 [facility] Serum or plasma cholesterol in HDL measurement (mass/volume)Ordered By: Dr. Yoo on 04-29-2023 Cholesterol in HDL [Mass/Vol] 55 mg/dL >40 [facility] Comment on above: The drugs N-Acetylcy steine and Metamizole may falsely depress this assay. Reference Range HDL <40 mg/dL Low HDL Cholesterol HDL >or= 60 mg/dL High HDL Cholesterol Serum or plasma cholesterol in VLDL measurement (mass/volume)Ordered By: Dr. Yoo on 04-29-2023 Cholesterol in VLDL [Mass/Vol] 14 mg/dL 5-40 [facility] Serum or plasma creatinine m easurement (mass/volume)Ordered By: Dr. Yoo on 04-29-2023 Creatinine [Mass/Vol] 0.92 mg/dL 0.70-1.30 [facility] Comment on above: The validity of the calculated GFR & GFRAA in patients over 70 years has not been determined. Clinical correlation is essential. Serum or plasma low density lipoprotein (LDL) cholesterol measurement (mass/volume)Ordered By: Dr. Yoo on 04-29-2023 Cholesterol in LDL [Mass/Vol] 61 mg/dL 0-130 [facility] Serum or plasma urea nitroge n measurement (mass/volume)Ordered By: Dr. Yoo on 04-29-2023 Urea nitrogen [Mass/Vol] 17 mg/dL 7-18 [facility] Thin prep Papanicolaou smear with manual screeningOrdered By: Dr. Yoo on 04-29-2023 Thin prep Papanicolaou smear with manual screening 25 U/L 15-37 [facility] Thin prep Papanicolaou smear with manual screening 4 5-15 [facility] Whole blood hemoglobin A1c/t otal hemoglobin ratio (mass fraction)Ordered By: Dr. Yoo on 04-29-2023 HbA1c (Bld) [Mass fraction] 6.6 % 3.8-5.6 [facility] Comment on above: Normal < 5.7 % Predi abetic 5.7 - 6.4 % Diabetic >or= 6.5 % Please note range changes. Basophil percentageOrdered B y: Dr. Yoo on 01-18-2023 Bilirubin [Mass/Vol] 0.60 mg/dL 0.20-1.00 [facility] Comment on above: For patients on eltr ombopag therapy, use of Dimension [place] TBIL is not recommended. Chloride [Moles/Vol] 102 mmol/L 98-107 [facility] Glucose [Mass/Vol] 179 mg/dL 74-106 [facility] Comment on above: Fasting Glucose resu lt greater than or equal to 126 mg/dL suggests DIABETES MELLITUS per A.D.A. criteria. Potassium [Moles/Vol] 4.6 mmol/L 3.5-5.1 [facility] Protein [Mass/Vol] 7.6 g/dL 6.4-8.2 [facility] Sodium [Moles/Vol] 139 mmol/L 136-145 [facility] - Chemistry and C hemistry - challengeOrdered By: Dr. Yoo on 01-18-2023 ALP [Catalytic activity/Vol] 61 U/L 45-117 [facility] ALT [Catalytic activity/Vol] 43 U/L 16-61 [facility] CO2 [Moles/Vol] 29.0 mmol/L 21.0-32.0 [facility] Globulin (S) [Mass/Vol] 3.7 g/dL 2.2-4.2 [facility] Urea nitrogen/Creatinine [Mass ratio] 16.0 mg/mg 10-20 [facility] No Panel InformationOrdered By: Dr. Yoo on 01-18-2023 Estimated GFR (MDRD) Amer 93 mL/min >60 [facility] Comment on above: GFR Calc Estimated GFR (MDRD) Non-Af Amer 77 mL/min >60 [facility] Comment on above: Non- GFR Calc Urine Microalbumin/Creatinin e Ratio 10.8 mg/g CRE <30 [facility] Serum or plasma albumin viktor urement (mass/volume)Ordered By: Dr. Yoo on 01-18-2023 Albumin [Mass/Vol] 3.9 g/dL 3.2-5.0 [facility] Serum or plasma albumin/glob ulin mass ratioOrdered By: Dr. Yoo on 01-18-2023 Albumin/Globulin [Mass ratio] 1.1 {ratio} 0.9-2.4 [facility] Serum or plasma calcium viktor urement (mass/volume)Ordered By: Dr. Yoo on 01-18-2023 Calcium [Mass/Vol] 9.4 mg/dL 8.5-10.1 [facility] Serum or plasma creatinine m easurement (mass/volume)Ordered By: Dr. Yoo on 01-18-2023 Creatinine [Mass/Vol] 1.00 mg/dL 0.70-1.30 [facility] Comment on above: The validity of the calculated GFR & GFRAA in patients over 70 years has not been determined. Clinical correlation is essential. Serum or plasma urea nitroge n measurement (mass/volume)Ordered By: Dr. Yoo on 01-18-2023 Urea nitrogen [Mass/Vol] 16 mg/dL 7-18 [facility] Thin prep Papanicolaou smear with manual screeningOrdered By: Dr. Yoo on 01-18-2023 Thin prep Papanicolaou smear with manual screening 35 U/L 15-37 [facility] Thin prep Papanicolaou smear with manual screening 8 5-15 [facility] Thin prep Papanicolaou smear with manual screening 6.4 mg/L NO RANGE EST. [facility] Urine creatinine measurement (mass/volume)Ordered By: Dr. Yoo on 01-18-2023 Creatinine (U) [Mass/Vol] 59.10 mg/dL NO RANGE EST. [facility] Whole blood hemoglobin A1c/t otal hemoglobin ratio (mass fraction)Ordered By: Dr. Yoo on 01-18-2023 HbA1c (Bld) [Mass fraction] 8.3 % 3.8-5.6 [facility] Comment on above: Normal < 5.7 % Predi abetic 5.7 - 6.4 % Diabetic >or= 6.5 % Please note range changes. Basophil percentageon 2021 Chloride [Moles/Vol] 99 mmol/L 98-107 [facility] Work Phone: Glucose [Mass/Vol] 260 mg/dL 74-106 [facility] Work Phone: Comment on above: Glucose result great er than or equal to 200 mg/dLsuggests DIABETES MELLITUS per A.D.A. criteria. Potassium [Moles/Vol] 5.1 mmol/L 3.5-5.1 [facility] Work Phone: Sodium [Moles/Vol] 135 mmol/L 136-145 [facility] Work Phone: Laboratory - Chemistry and C hemistry - challengeon 06-11-2022 CO2 [Moles/Vol] 31.0 mmol/L 21.0-32.0 [facility] Work Phone: Urea nitrogen/Creatinine [Mass ratio] 23.3 mg/mg 10-20 [facility] Work Phone: No Panel Informationon 06-11 Estimated GFR (MDRD) Amer 75 mL/min >60 [facility] Work Phone: Comment on above: GFR Calc Estimated GFR (MDRD) Non-Af Amer 62 mL/min >60 [facility] Work Phone: Comment on above: Non- GFR Calc Serum or plasma calcium viktor urement (mass/volume)on 06-11-2022 Calcium [Mass/Vol] 9.6 mg/dL 8.5-10.1 [facility] Work Phone: Serum or plasma creatinine m easurement (mass/volume)on 06-11-2022 Creatinine [Mass/Vol] 1.20 mg/dL 0.70-1.30 [facility] Work Phone: Comment on above: The validity of the calculated GFR & GFRAA in patients over 70 years has not been determined. Clinical correlation is essential. Serum or plasma urea nitroge n measurement (mass/volume)on 06-11-2022 Urea nitrogen [Mass/Vol] 28 mg/dL 7-18 [facility] Work Phone: Thin prep Papanicolaou smear with manual screeningon 06-11-2022 Thin prep Papanicolaou smear with manual screening 5 5-15 [facility] Work Phone: Glucose Glucometer (BldC) [M ass/Vol]on 06-06-2022 Glucose [Mass/Vol] 203 mg/dL 74-106 [facility] Work Phone: Comment on above: MANAGEMENT OF PATIEN T CARE PER NURSING PROTOCOL Laboratory - Chemistry and C hemistry - challengeon 06-06-2022 ALP [Catalytic activity/Vol] 59 U/L 45-117 [facility] Work Phone: Absolute lymphocyte counton 06-05-2022 Lymphocytes Auto (Unsp spec) [#/Vol] 1.25 10*3/uL 0.83-4.51 [facility] Work Phone: Basophil percentageon 2021 Basophils/100 WBC (Bld) 0.5 % 0-1 [facility] Work Phone: Bilirubin [Mass/Vol] 0.50 mg/dL 0.20-1.00 [facility] Work Phone: Comment on above: For patients on eltr ombopag therapy, use of Dimension [place] TBIL is not recommended. Chloride [Moles/Vol] 103 mmol/L 98-107 [facility] Work Phone: Eosinophils/100 WBC (Bld) 0.6 % 0-5 [facility] Work Phone: Glucose [Mass/Vol] 158 mg/dL 74-106 [facility] Work Phone: Comment on above: Fasting Glucose resu lt greater than or equal to 126 mg/dL suggests DIABETES MELLITUS per A.D.A. criteria. Neutrophils (Bld) [#/Vol] 5.6 10*3/uL 2.0-7.7 [facility] Work Phone: Neutrophils/100 WBC (Bld) 65.5 % 47-70 [facility] Work Phone: Potassium [Moles/Vol] 4.2 mmol/L 3.5-5.1 [facility] Work Phone: Protein [Mass/Vol] 7.8 g/dL 6.4-8.2 [facility] Work Phone: Sodium [Moles/Vol] 137 mmol/L 136-145 [facility] Work Phone: WBC (Bld) [#/Vol] 8.5 10*3/uL 4.4-11.0 [facility] Work Phone: Blood erythrocytes count (nu mber/volume)on 06-05-2022 RBC (Bld) [#/Vol] 4.73 10*6/uL 4.6-6.2 [facility] Work Phone: Blood hemoglobin measurement (mass/volume)on 06-05-2022 Hemoglobin (Bld) [Mass/Vol] 15.2 g/dL 13.0-16.5 [facility] Work Phone: Blood lymphocytes/100 leukoc yteson 06-05-2022 Lymphocytes/100 WBC (Bld) 14.7 % 19-41 [facility] Work Phone: Blood manual differential co mment interpretation (narrative result)on 06-05-2022 Manual differential comment Marcial (Bld) [Interp] SEE COMMENT [facility] Work Phone: Comment on above: MONOCYTOSIS NOTED Blood monocytes/100 leukocyt eson 06-05-2022 Monocytes/100 WBC (Bld) 18.3 % 0-10 [facility] Work Phone: Blood platelet adequacy dete ction by light microscopyon 06-05-2022 Platelets LM Ql (Bld) ADEQUATE ADEQ [facility] Work Phone: Blood platelet mean volumeon 06-05-2022 Platelet mean volume (Bld) [Entitic vol] 11.5 fL 6.2-12.0 [facility] Work Phone: Determination of erythrocyte mean corpuscular volume (MCV)on 06-05-2022 MCV (RBC) [Entitic vol] 96.8 fL 80-94 [facility] Work Phone: Hematocrit Auto (Bld) [Volum e fraction]on 06-05-2022 Hematocrit (Bld) [Volume fraction] 45.8 % 40-54 [facility] Work Phone: Laboratory - Chemistry and C hemistry - challengeon 06-05-2022 ALP [Catalytic activity/Vol] 57 U/L 45-117 [facility] Work Phone: ALT [Catalytic activity/Vol] 45 U/L 16-61 [facility] Work Phone: CO2 [Moles/Vol] 27.0 mmol/L 21.0-32.0 [facility] Work Phone: Globulin (S) [Mass/Vol] 4.1 g/dL 2.2-4.2 [facility] Work Phone: [phone] Urea nitrogen/Creatinine [Mass ratio] 14.0 mg/mg 10-20 [facility] Work Phone: Laboratory - Hematology and Cell countson 06-05-2022 Anisocytosis Ql (Bld) RARE [facility] Work Phone: [phone] Erythrocyte distribution width (RBC) [Entitic vol] 48.1 fL 35.1-43.9 [facility] Work Phone: [phone] Erythrocyte distribution width (RBC) [Ratio] 13.3 % 11.6-14.6 [facility] Work Phone: [phone] Immature granulocytes/100 WBC (Bld) 0.400 % 0.0-0.9 [facility] Work Phone: Comment on above: IG% - Immature Granu locytes (promyelocytes, myelocytes and metamyelocytes) > 1% indicates that a LEFT SHIFT is Present. MCH (RBC) [Entitic mass] 32.1 pg 27.0-32.0 [facility] Work Phone: Nucleated RBC/100 WBC (Bld) [Ratio] 0 % 0-5 [facility] Work Phone: MCHC Auto (RBC) [Mass/Vol]on 06-05-2022 MCHC (RBC) [Mass/Vol] 33.2 g/dL 32-36 [facility] Work Phone: Macrocytes detectionon 06-05 Macrocytes Ql (Bld) RARE [facility] Work Phone: No Panel Informationon 06-05 D-Dimer Quantitative (PE/DVT) 1.13 FEU/ug/m 0.27-0.49 [facility] Work Phone: Comment on above: CRITICAL VALUE VERIF IED. CALLED TO MICHELE HARDY RN ED06/05/[id number] Damian Plummer.RESULTS READ BACK BY . D-Dimer ELEVATED (>0.49): Additional studies and clinicalassessments are indicated to conclude diagnosis of:Deep Vein Thrombosis (DVT) or Pulmonary Embolism (PE) Estimated Creatinine Clearance Calc 54.94 ml/min [facility] Work Phone: [phone] Estimated GFR (MDRD) Amer 93 mL/min >60 [facility] Work Phone: [phone] Comment on above: GFR Calc Estimated GFR (MDRD) Non-Af Amer 77 mL/min >60 [facility] Work Phone: [phone] Comment on above: Non- GFR Calc Troponin I High Sensitivity 6 pg/mL 3.0-78.0 [facility] Work Phone: Comment on above: Please Note: New Alexsandra t Units and Gender Specific Reference Ranges. For more information see Policy Stat Procedure [place] High Sensitivity Troponin (TNIH) and attachments. Platelets bldon 06-05-2022 Platelets (Bld) [#/Vol] 160 10*3/uL 150-450 [facility] Work Phone: [phone] RBC morphologyon 06-05-2022 RBC morphology finding Nom (Bld) N CHROM NORMAL NORM C&C [facility] Work Phone: [phone] Serum or plasma albumin viktor urement (mass/volume)on 06-05-2022 Albumin [Mass/Vol] 3.7 g/dL 3.2-5.0 [facility] Work Phone: [phone] Serum or plasma albumin/glob ulin mass ratioon 06-05-2022 Albumin/Globulin [Mass ratio] 0.9 {ratio} 0.9-2.4 [facility] Work Phone: [phone] Serum or plasma calcium viktor urement (mass/volume)on 06-05-2022 Calcium [Mass/Vol] 9.2 mg/dL 8.5-10.1 [facility] Work Phone: [phone] Serum or plasma creatinine m easurement (mass/volume)on 06-05-2022 Creatinine [Mass/Vol] 1.00 mg/dL 0.70-1.30 [facility] Work Phone: Comment on above: The validity of the calculated GFR & GFRAA in patients over 70 years has not been determined. Clinical correlation is essential. Serum or plasma urea nitroge n measurement (mass/volume)on 06-05-2022 Urea nitrogen [Mass/Vol] 14 mg/dL 7-18 [facility] Work Phone: Serum procalcitonin measurem enton 06-05-2022 Procalcitonin [Mass/Vol] 0.07 ng/mL 0.00-0.09 [facility] Work Phone: Comment on above: A procalcitonin (PCT ) level above 2.0 ng/mL on the first day of ICU admission is associated with a high risk for progression to severe sepsis and/or septic shock. A PCT level below 0.5 ng/mL on the first day of ICU admission is associated with a low risk for progression to severe and/or septic shock. Note: Concentrations <0.5 ng/mL do not exclude an infection on account of localized infections (without systemic signs) which can be associated with such low concentrations, or a systemic infection in its initial stages (<6 hours). Furthermore, increased procalcitonin can occur without infection. PCT concentrations between 0.5 and 2.0 ng/mL should be interpreted taking into account the patient's history. It is recommended to retest PCT within 6-24 hours if any concentrations <2 ng/mL are obtained. Thin prep Papanicolaou smear with manual screeningon 06-05-2022 Thin prep Papanicolaou smear with manual screening 31 U/L 15-37 [facility] Work Phone: [phone] Thin prep Papanicolaou smear with manual screening 7 5-15 [facility] Work Phone: [phone] Absolute lymphocyte counton 05-30-2022 Lymphocytes Auto (Unsp spec) [#/Vol] 1.59 10*3/uL 0.83-4.51 [facility] Work Phone: [phone] Basophil percentageon 2021 Basophils/100 WBC (Bld) 0.9 % 0-1 [facility] Work Phone: [phone] Bilirubin [Mass/Vol] 0.50 mg/dL 0.20-1.00 [facility] Work Phone: Comment on above: For patients on eltr ombopag therapy, use of Dimension Hessmer TBIL is not recommended. Chloride [Moles/Vol] 103 mmol/L 98-107 [facility] Work Phone: Cholesterol [Mass/Vol] 144 mg/dL <200 [facility] Work Phone: Comment on above: <200 mg/dL Desirable 200-240 mg/dL Borderline >240 mg/dL High Risk Eosinophils/100 WBC (Bld) 2.3 % 0-5 [facility] Work Phone: [phone] Glucose [Mass/Vol] 208 mg/dL 74-106 [facility] Work Phone: Comment on above: Glucose result great er than or equal to 200 mg/dLsuggests DIABETES MELLITUS per A.D.A. criteria. Neutrophils (Bld) [#/Vol] 3.1 10*3/uL 2.0-7.7 [facility] Work Phone: Neutrophils/100 WBC (Bld) 54.5 % 47-70 [facility] Work Phone: Potassium [Moles/Vol] 4.9 mmol/L 3.5-5.1 [facility] Work Phone: Protein [Mass/Vol] 7.4 g/dL 6.4-8.2 [facility] Work Phone: Sodium [Moles/Vol] 137 mmol/L 136-145 [facility] Work Phone: Triglyceride [Mass/Vol] 179 mg/dL <199 [facility] Work Phone: Comment on above: The drugs N-Acetylcy steine and Metamizole may falsely depress this assay.Serum Triglycerides Reference Interval Normal <150 mg/dL Borderline high 150 - 199 mg/dL High 200 - 499 mg/dL Very High > or = 500 mg/dL WBC (Bld) [#/Vol] 5.6 10*3/uL 4.4-11.0 [facility] Work Phone: Blood erythrocytes count (nu mber/volume)on 05-30-2022 RBC (Bld) [#/Vol] 4.53 10*6/uL 4.6-6.2 [facility] Work Phone: Blood hemoglobin measurement (mass/volume)on 05-30-2022 Hemoglobin (Bld) [Mass/Vol] 14.6 g/dL 13.0-16.5 [facility] Work Phone: Blood lymphocytes/100 leukoc yteson 05-30-2022 Lymphocytes/100 WBC (Bld) 28.2 % 19-41 [facility] Work Phone: [phone] Blood monocytes/100 leukocyt eson 05-30-2022 Monocytes/100 WBC (Bld) 13.7 % 0-10 [facility] Work Phone: Blood platelet mean volumeon 05-30-2022 Platelet mean volume (Bld) [Entitic vol] 11.7 fL 6.2-12.0 [facility] Work Phone: Determination of erythrocyte mean corpuscular volume (MCV)on 05-30-2022 MCV (RBC) [Entitic vol] 97.8 fL 80-94 [facility] Work Phone: Direct bilirubinon Bilirubin.direct [Mass/Vol] 0.12 mg/dL 0.00-0.30 [facility] Work Phone: Hematocrit Auto (Bld) [Volum e fraction]on 05-30-2022 Hematocrit (Bld) [Volume fraction] 44.3 % 40-54 [facility] Work Phone: Laboratory - Chemistry and C hemistry - challengeon 05-30-2022 ALP [Catalytic activity/Vol] 53 U/L 45-117 [facility] Work Phone: ALT [Catalytic activity/Vol] 41 U/L 16-61 [facility] Work Phone: [phone] CO2 [Moles/Vol] 29.0 mmol/L 21.0-32.0 [facility] Work Phone: [phone] Globulin (S) [Mass/Vol] 3.6 g/dL 2.2-4.2 [facility] Work Phone: [phone] Urea nitrogen/Creatinine [Mass ratio] 17.2 mg/mg 10-20 [facility] Work Phone: [phone] Laboratory - Hematology and Cell countson 05-30-2022 Erythrocyte distribution width (RBC) [Entitic vol] 47.5 fL 35.1-43.9 [facility] Work Phone: [phone] Erythrocyte distribution width (RBC) [Ratio] 13.2 % 11.6-14.6 [facility] Work Phone: [phone] Immature granulocytes/100 WBC (Bld) 0.400 % 0.0-0.9 [facility] Work Phone: [phone] Comment on above: IG% - Immature Granu locytes (promyelocytes, myelocytes and metamyelocytes) > 1% indicates that a LEFT SHIFT is Present. MCH (RBC) [Entitic mass] 32.2 pg 27.0-32.0 [facility] Work Phone: [phone] Nucleated RBC/100 WBC (Bld) [Ratio] 0 % 0-5 [facility] Work Phone: [phone] HbA1c (Bld) [Mass fraction] 7.2 % 4.2-6.3 [facility] Work Phone: [phone] MCHC Auto (RBC) [Mass/Vol]on 05-30-2022 MCHC (RBC) [Mass/Vol] 33.0 g/dL 32-36 [facility] Work Phone: No Panel Informationon 05-30 Estimated GFR (MDRD) Amer 94 mL/min >60 [facility] Work Phone: [phone] Comment on above: GFR Calc Estimated GFR (MDRD) Non-Af Amer 78 mL/min >60 [facility] Work Phone: [phone] Comment on above: Non- GFR Calc Platelets bldon 05-30-2022 Platelets (Bld) [#/Vol] 169 10*3/uL 150-450 [facility] Work Phone: Serum or plasma albumin viktor urement (mass/volume)on 05-30-2022 Albumin [Mass/Vol] 3.8 g/dL 3.2-5.0 [facility] Work Phone: Serum or plasma calcium viktor urement (mass/volume)on 05-30-2022 Calcium [Mass/Vol] 9.3 mg/dL 8.5-10.1 [facility] Work Phone: Serum or plasma cholesterol in HDL measurement (mass/volume)on 05-30-2022 Cholesterol in HDL [Mass/Vol] 44 mg/dL >40 [facility] Work Phone: Comment on above: The drugs N-Acetylcy steine and Metamizole may falsely depress this assay. Reference Range HDL <40 mg/dL Low HDL Cholesterol HDL >or= 60 mg/dL High HDL Cholesterol Serum or plasma cholesterol in VLDL measurement (mass/volume)on 05-30-2022 Cholesterol in VLDL [Mass/Vol] 36 mg/dL 5-40 [facility] Work Phone: Serum or plasma creatinine m easurement (mass/volume)on 05-30-2022 Creatinine [Mass/Vol] 0.99 mg/dL 0.70-1.30 [facility] Work Phone: Comment on above: The validity of the calculated GFR & GFRAA in patients over 70 years has not been determined. Clinical correlation is essential. Serum or plasma low density lipoprotein (LDL) cholesterol measurement (mass/volume)on 05-30-2022 Cholesterol in LDL [Mass/Vol] 64 mg/dL 0-130 [facility] Work Phone: Serum or plasma urea nitroge n measurement (mass/volume)on 05-30-2022 Urea nitrogen [Mass/Vol] 17 mg/dL 7-18 [facility] Work Phone: Thin prep Papanicolaou smear with manual screeningon 05-30-2022 Thin prep Papanicolaou smear with manual screening 38 U/L 15-37 [facility] Work Phone: Thin prep Papanicolaou smear with manual screening 5 5-15 [facility] Work Phone: Office Visiton 10-01-2017 Documentation of current medications (procedure) Done Invalid Interpretation Code [facility] Work Phone: [phone] Fall risk assessment No Invalid Interpretation Code [facility] Work Phone: [phone] 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 Left ventricular Ejection fraction 50 % Invalid Interpretation Code [facility] Work Phone: [phone] Clinical Lists Update: [facility] 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 Alanine aminotransferase (ALT) 29 U/L Invalid Interpretation Code [facility] Work Phone: [phone] Albumin 4.1 g/dL Invalid Interpretation Code [facility] Work Phone: [phone] Alkaline phosphatase (ALP) 49 U/L Invalid Interpretation Code [facility] Work Phone: [phone] Aspartate aminotransferase (AST) 44 U/L High [facility] Work Phone: [phone] Bilirubin (total) 0.5 mg/dL Invalid Interpretation Code [facility] Work Phone: [phone] BUN/Creatinine Ratio 20 mg/mg Invalid Interpretation Code [facility] Work Phone: [phone] Calcium 9.0 mg/dL Invalid Interpretation Code [facility] Work Phone: [phone] Chloride 101 mmol/L Invalid Interpretation Code [facility] Work Phone: [phone] Cholesterol 139 mg/dL Invalid Interpretation Code [facility] Work Phone: [phone] CO2 21 mmol/L Invalid Interpretation Code [facility] Work Phone: [phone] Creatinine 1.01 mg/dL Invalid Interpretation Code [facility] Work Phone: [phone] Erythrocytes (RBC) 4.51 10*6/uL Invalid Interpretation Code [facility] Work Phone: [phone] Globulin 2.8 g/dL Invalid Interpretation Code [facility] Work Phone: [phone] Glucose 126 mg/dL High [facility] Work Phone: [phone] Glucose mass conc 126 mg/dL High [facility] Work Phone: [phone] HDL Cholesterol 55 mg/dL Invalid Interpretation Code [facility] Work Phone: [phone] Hematocrit (HCT) 42.8 % Invalid Interpretation Code [facility] Work Phone: [phone] Hemoglobin (HGB) 14.5 g/dL Invalid Interpretation Code [facility] Work Phone: [phone] LDL Cholesterol 69 mg/dL Invalid Interpretation Code [facility] Work Phone: [phone] LDL/HDL ratio, serum 1.3 Invalid Interpretation Code [facility] Work Phone: [phone] MCH 32.2 pg Invalid Interpretation Code [facility] Work Phone: [phone] MCHC 33.9 g/dL Invalid Interpretation Code [facility] Work Phone: [phone] MCV 95 fL Invalid Interpretation Code [facility] Work Phone: [phone] Platelets 185 10*3/mm3 Invalid Interpretation Code [facility] Work Phone: [phone] Potassium 4.5 mmol/L Invalid Interpretation Code [facility] Work Phone: [phone] Protein 6.9 g/dL Invalid Interpretation Code [facility] Work Phone: [phone] RDW-CA 14.4 % Invalid Interpretation Code [facility] Work Phone: [phone] Sodium 138 mmol/L Invalid Interpretation Code [facility] Work Phone: [phone] Triglyceride 74 mg/dL Invalid Interpretation Code [facility] Work Phone: [phone] Urea nitrogen 20 mg/dL Invalid Interpretation Code [facility] Work Phone: [phone] very low density lipoproteins 15 mg/dL Invalid Interpretation Code [facility] Work Phone: [phone] WBC (Leukocytes) 6.4 10*3/uL Invalid Interpretation Code [facility] Work Phone: [phone] Lab Report: Basic Metabolic Profile (BMP)on 01-11-2017 Anion gap 9 mmol/L Invalid Interpretation Code 5-15 [facility] Work Phone: eGFR (non-black) 101 mL/min/{1.73_m2} Invalid Interpretation Code >60 [facility] Work Phone: [phone] eGFR (non-black) 83 mL/min/{1.73_m2} Invalid Interpretation Code >60 [facility] Work Phone: [phone] Lab Report: CBC W/Diff, Auto matedon 01-11-2017 RDW SD 46.7 fL High 35.1-43.9 [facility] Work Phone: [phone] red blood cell distribution width, size density 46.7 fL High 35.1-43.9 [facility] Work Phone: [phone] Absolute Neut 4.2 X10 3/UL Invalid Interpretation Code 2.0-7.7 [facility] Work Phone: [phone] Basophils/100 leukocytes 0.7 % Invalid Interpretation Code 0-1 [facility] Phone: [phone] Eosinophils/100 leukocytes 3.5 % Invalid Interpretation Code 0-5 [facility] Work Phone: [phone] immature granulocytes, percentage of total cells, blood 0.100 % Invalid Interpretation Code 0.0-0.9 [facility] Work Phone: [phone] Immature granulocytes/100 WBC (Bld) 0.100 % Invalid Interpretation Code 0.0-0.9 [facility] Phone: [phone] Lymphocytes 1.75 X10 3/UL Invalid Interpretation Code 0.83-4.51 [facility] Work Phone: [phone] Lymphocytes/100 leukocytes 25.7 % Invalid Interpretation Code 19-41 [facility] Work Phone: [phone] Monocytes/100 leukocytes 8.8 % Invalid Interpretation Code 0-10 [facility] Phone: [phone] neutrophil count, blood 4.2 X10 3/UL Invalid Interpretation Code 2.0-7.7 [facility] Phone: [phone] Neutrophils/100 leukocytes 61.2 % Invalid Interpretation Code 47-70 [facility] Work Phone: [phone] PMV by Crista 12.0 fL Invalid Interpretation Code 6.2-12.0 [facility] Work Phone: [phone] Lab Report: Magnesiumon 12-20 Magnesium 2.2 mg/dL Invalid Interpretation Code 1.8-2.4 [facility] Work Phone: [phone] Lab Report: T4 Total, Thyrox inon 01-11-2017 Thyroxine (T4) 6.3 ug/dL Invalid Interpretation Code 4.5-12.1 [facility] Work Phone: [phone] Lab Report: Thyroid Stim Hor marques (TSH)on 01-11-2017 Thyroid stimulating hormone (TSH) 1.99 u[iU]/mL Invalid Interpretation Code 0.358-3.74 [facility] Work Phone: [phone] Office Visit: Luis 01-11-20 17 Documentation of current medications (procedure) Done Invalid Interpretation Code [facility] Phone: [phone] Replaced Document: Zaid[place]ark E CG Observationson 01-11-2017 EKG QRS axis 2 deg Invalid Interpretation Code [facility] Work Phone: [phone] electrocardiogram interpretation 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 ABNORMAL Invalid Interpretation Code [facility] Work Phone: [phone] P [place] 36 deg Invalid Interpretation Code [facility] Work Phone: [phone] P wave axis, electrocardiogram 36 deg Invalid Interpretation Code [facility] Work Phone: [phone] AK Interval 178 ms Invalid Interpretation Code [facility] Work Phone: [phone] AK interval, electrocardiogram 178 ms Invalid Interpretation Code [facility] Work Phone: [phone] Pulse (Heart Rate) 64 /min Invalid Interpretation Code [facility] Phone: [phone] QRS axis, electrocardiogram 2 deg Invalid Interpretation Code [facility] Work Phone: [phone] QRS Duration 94 ms Invalid Interpretation Code [facility] Work Phone: [phone] QRS duration, electrocardiogram 94 ms Invalid Interpretation Code [facility] Work Phone: [phone] QT Interval new path ms Invalid Interpretation Code [facility] Work Phone: [phone] QT interval, electrocardiogram new path ms Invalid Interpretation Code [facility] Work Phone: [phone] QTc Turner 419 ms Invalid Interpretation Code [facility] Work Phone: [phone] T [place] 15 deg Invalid Interpretation Code [facility] Work Phone: [phone] T wave axis, electrocardiogram 15 deg Invalid Interpretation Code [facility] Work Phone: [phone] Office Visiton 09-28-2016 Dietary management education, guidance, and counseling (procedure) yes Invalid Interpretation Code [facility] Work Phone: [phone] Tobacco use CPHS Former smoker Invalid Interpretation Code [facility] Work Phone: [phone] 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 Left ventricular Ejection fraction 50 % Invalid Interpretation Code [facility] Work Phone: [phone] Office Visit: [facility] 11-22-19 15 Alcoholism counseling (procedure) no Invalid Interpretation Code [facility] Work Phone: [phone] cardiac risk group C Invalid Interpretation Code [facility] Work Phone: [phone] General cardiovascular disease 10Y risk [#] [place].Carley'Radha N/A Invalid Interpretation Code [facility] Work Phone: [phone] Tobacco smoking status NHIS Never Invalid Interpretation Code [facility] Work Phone: [phone] Lab Report: PTon 07-20-2014 INR Coag RelTime (PPP) 1.0 {INR} Normal [facility] Work Phone: [phone] INR in blood by coagulation 1.0 {INR} Normal [facility] Work Phone: [phone] prothrombin time, actual/normal, ratio 13.1 SECONDS Normal 11.7-14.9 [facility] Work Phone: [phone] PTP 13.1 SECONDS Normal 11.7-14.9 [facility] Work Phone: [phone] Lab Report: Ordered by Dr. Gayatri rubi 03-30-2014 [facility] 33.8 % Invalid Interpretation Code [facility] Work Phone: [phone] Albumin/Globulin Ratio 1.7 {ratio} Invalid Interpretation Code [facility] Work Phone: [phone] Lab Report: LIVERon 03-10-20 13 Bilirubin (direct) 0.08 mg/dL Normal 0.00-0.30 [facility] Work Phone: [phone] Replaced Document: Herson Vickon 09-15-2012 Pulse (Heart Rate) 414 ms Invalid Interpretation Code [facility] Work Phone: [phone] Laboratory - Microbiology an d Antimicrobial susceptibility Bacteria identified Cx Nom (Bld) No growth. [facility] Work Phone: [phone] Bacteria identified Cx Nom (Bld) No growth in 5 days. [facility] Work Phone: SARS-CoV-2 (COVID-19) Ag IA. rapid Ql (Resp) SARS-CoV-2 Antigen (Rapid) SARS-CoV-2 (COVID 19) [facility] Work Phone: Vital Signs Date Time Vital Sign Value Performing Clinician Faci anny 05-19-2025 10:41-0400 Body height 167.[address] Ezequiel Yoo MD Work Phone: [facility] 05-19-2025 10:41-0400 Body mass index (BMI) [Ratio] 30.4 kg/m2 Dr. Ezequiel Yoo MD Work Phone: [facility] 05-19-2025 10:41-0400 Body temperature 97.2 [degF] Dr. Ezequiel Yoo MD Work Phone: [facility] 05-19-2025 10:41-0400 Body weight 85.[address] Ezequiel Yoo MD Work Phone: [facility] 05-19-2025 10:41-0400 Diastolic blood pressure 78 mm[Hg] Dr. Ezequiel Yoo MD Work Phone: [facility] 05-19-2025 10:41-0400 Heart rate 61 /min Dr. Ezequiel Yoo MD Work Phone: [facility] 05-19-2025 10:41-0400 Respiratory rate 16 /min Dr. Ezequiel Yoo MD Work Phone: [facility] 05-19-2025 10:41-0400 SaO2% (BldA) [Mass fraction] 97 % Dr. Ezequiel Yoo MD Work Phone: [facility] 05-19-2025 10:41-0400 Systolic blood pressure 128 mm[Hg] Dr. Ezequiel Yoo MD Work Phone: [facility] 01-14-2025 14:39-0500 Body height 167.[address] Ezequiel Yoo MD Work Phone: [facility] 01-14-2025 14:39-0500 Body mass index (BMI) [Ratio] 30.8 kg/m2 Dr. Ezequiel Yoo MD Work Phone: [facility] 01-14-2025 14:39-0500 Body temperature 97.6 [degF] Dr. Ezequiel Yoo MD Work Phone: [facility] 01-14-2025 14:39-0500 Body weight 86.[address] Ezequiel Yoo MD Work Phone: [facility] 01-14-2025 14:39-0500 Diastolic blood pressure 78 mm[Hg] Dr. Ezequiel Yoo MD Work Phone: [facility] 01-14-2025 14:39-0500 Heart rate 67 /min Dr. Ezequiel Yoo MD Work Phone: [facility] 01-14-2025 14:39-0500 Respiratory rate 16 /min Dr. Ezequiel Yoo MD Work Phone: [facility] 01-14-2025 14:39-0500 SaO2% (BldA) [Mass fraction] 96 % Dr. Ezequiel Yoo MD Work Phone: [facility] 01-14-2025 14:39-0500 Systolic blood pressure 118 mm[Hg] Dr. Ezequiel Yoo MD Work Phone: [facility] 01-08-2025 09:03-0500 Body mass index (BMI) [Ratio] 30.7 kg/m2 Dr. Ezequiel Yoo MD Work Phone: [facility] 01-08-2025 09:03-0500 Body weight 86.[address] Ezequiel Yoo MD Work Phone: [facility] 01-08-2025 09:03-0500 Diastolic blood pressure 81 mm[Hg] Dr. Ezequiel Yoo MD Work Phone: [facility] 01-08-2025 09:03-0500 Heart rate 73 /min Dr. Ezequiel Yoo MD Work Phone: [facility] 01-08-2025 09:03-0500 Respiratory rate 16 /min Dr. Ezequiel Yoo MD Work Phone: [facility] 01-08-2025 09:03-0500 Systolic blood pressure 136 mm[Hg] Dr. Ezequiel Yoo MD Work Phone: [facility] 01-06-2024 07:06-0500 Body height 167.[address] Ezequiel Yoo Work Phone: [facility] 01-06-2024 07:06-0500 Body weight 85.[address] Ezequiel Yoo Work Phone: [facility] 01-03-2024 09:40-0500 Body mass index (BMI) [Ratio] 30.4 kg/m2 Dr. Ezequiel Yoo Work Phone: [facility] 12-18-2023 10:53-0500 Body mass index (BMI) [Ratio] 30.4 kg/m2 Dr. Ezequiel Yoo Work Phone: [facility] 12-18-2023 10:53-0500 Body weight 85.[address] Ezequiel Yoo Work Phone: [facility] 12-18-2023 10:53-0500 Diastolic blood pressure 77 mm[Hg] Dr. Ezequiel Yoo Work Phone: [facility] 12-18-2023 10:53-0500 Heart rate 77 /min Dr. Ezequiel Yoo Work Phone: [facility] 12-18-2023 10:53-0500 Respiratory rate 18 /min Dr. Ezequiel Yoo Work Phone: [facility] 12-18-2023 10:53-0500 SaO2% (BldA) [Mass fraction] 92 % Dr. Ezequiel Yoo Work Phone: [facility] 12-18-2023 10:53-0500 Systolic blood pressure 124 mm[Hg] Dr. Ezequiel Yoo Work Phone: [facility] 04-29-2023 07:46-0400 Body height 167.[address] Ezequiel Yoo Work Phone: [facility] 04-29-2023 07:46-0400 Body mass index (BMI) [Ratio] 29.7 kg/m2 Dr. Ezequiel Yoo Work Phone: [facility] 04-29-2023 07:46-0400 Body temperature 95 [degF] Dr. Ezequiel Yoo Work Phone: [facility] 04-29-2023 07:46-0400 Body weight 83.[address] Ezequiel Yoo Work Phone: [facility] 04-29-2023 07:46-0400 Diastolic blood pressure 72 mm[Hg] Dr. Ezequiel Yoo Work Phone: [facility] 04-29-2023 07:46-0400 Heart rate 67 /min Dr. Ezequiel Yoo Work Phone: [facility] 04-29-2023 07:46-0400 Respiratory rate 18 /min Dr. Ezequiel Yoo Work Phone: [facility] 04-29-2023 07:46-0400 SaO2% (BldA) [Mass fraction] 99 % Dr. Ezequiel Yoo Work Phone: [facility] 04-29-2023 07:46-0400 Systolic blood pressure 124 mm[Hg] Dr. Ezequiel Yoo Work Phone: [facility] 01-18-2023 14:15-0500 Body height 167.[address] Ezeuqiel Yoo Work Phone: [facility] 01-18-2023 14:15-0500 Body mass index (BMI) [Ratio] 31.8 kg/m2 Dr. Ezequiel Yoo Work Phone: [facility] 01-18-2023 14:15-0500 Body temperature 97.9 [degF] Dr. Ezequiel Yoo Work Phone: [facility] 01-18-2023 14:15-0500 Body weight 89.[address] Ezequiel Yoo Work Phone: [facility] 01-18-2023 14:15-0500 Diastolic blood pressure 76 mm[Hg] Dr. Ezequiel Yoo Work Phone: [facility] 01-18-2023 14:15-0500 Heart rate 69 /min Dr. Ezequiel Yoo Work Phone: [facility] 01-18-2023 14:15-0500 Respiratory rate 18 /min Dr. Ezequiel Yoo Work Phone: [facility] 01-18-2023 14:15-0500 SaO2% (BldA) [Mass fraction] 94 % Dr. Ezequiel Yoo Work Phone: [facility] 01-18-2023 14:15-0500 Systolic blood pressure 122 mm[Hg] Dr. Ezequiel Yoo Work Phone: [facility] 01-11-2023 14:27-0500 Body mass index (BMI) [Ratio] 31.9 kg/m2 Dr. Ezequiel Yoo Work Phone: [facility] 01-11-2023 14:27-0500 Body weight 89.[address] Ezequiel Yoo Work Phone: [facility] 01-11-2023 14:27-0500 Diastolic blood pressure 65 mm[Hg] Dr. Ezequiel Yoo Work Phone: [facility] 01-11-2023 14:27-0500 Heart rate 64 /min Dr. Ezequiel Yoo Work Phone: [facility] 01-11-2023 14:27-0500 Respiratory rate 16 /min Dr. Ezequiel Yoo Work Phone: [facility] 01-11-2023 14:27-0500 Systolic blood pressure 106 mm[Hg] Dr. Ezequiel Yoo Work Phone: [facility] 06-11-2022 09:22-0400 Body height 167.[address] Ezequiel Yoo Work Phone: [facility] Work Phone: 06-11-2022 09:22-0400 Body mass index (BMI) [Ratio] 30.7 kg/m2 Dr. Ezequiel Yoo Work Phone: [facility] Work Phone: 06-11-2022 09:22-0400 Body temperature 97.8 [degF] Dr. Ezequiel Yoo Work Phone: [facility] Work Phone: 06-11-2022 09:22-0400 Body weight 86.[address] Ezequiel Yoo Work Phone: [facility] Work Phone: 06-11-2022 09:22-0400 Diastolic blood pressure 78 mm[Hg] Dr. Ezequiel Yoo Work Phone: [facility] Work Phone: 06-11-2022 09:22-0400 Heart rate 70 /min Dr. Ezequiel Yoo Work Phone: [facility] Work Phone: 06-11-2022 09:22-0400 Respiratory rate 16 /min Dr. Ezequiel Yoo Work Phone: [facility] Work Phone: 06-11-2022 09:22-0400 SaO2% (BldA) [Mass fraction] 70 % Dr. Ezequiel Yoo Work Phone: [facility] Work Phone: 06-11-2022 09:22-0400 Systolic blood pressure 120 mm[Hg] Dr. Ezequiel Yoo Work Phone: [facility] Work Phone: 06-06-2022 14:20-0400 Body temperature 98.5 [degF] Dr. Ezequiel Yoo Work Phone: [facility] Work Phone: 06-06-2022 14:20-0400 Diastolic blood pressure 82 mm[Hg] Dr. Ezequiel Yoo Work Phone: [facility] Work Phone: 06-06-2022 14:20-0400 Heart rate 84 /min Dr. Ezequiel Yoo Work Phone: [facility] Work Phone: 06-06-2022 14:20-0400 Respiratory rate 16 /min Dr. Ezequiel Yoo Work Phone: [facility] Work Phone: 06-06-2022 14:20-0400 SaO2% (BldA) [Mass fraction] 97 % Dr. Ezequiel Yoo Work Phone: [facility] Work Phone: 06-06-2022 14:20-0400 Systolic blood pressure 120 mm[Hg] Dr. Ezequeil Yoo Work Phone: [facility] Work Phone: 06-06-2022 10:00-0400 Inhaled oxygen flow rate 2 L/min Dr. Ezequiel Yoo Work Phone: [facility] Work Phone: 06-06-2022 06:10-0400 Body mass index (BMI) [Ratio] 30.7 kg/m2 Dr. Ezequiel Yoo Work Phone: [facility] Work Phone: 06-06-2022 06:10-0400 Body weight 86.[address] Ezequiel Yoo Work Phone: [facility] Work Phone: 06-06-2022 00:40-0400 Body temperature 98.6 [degF] Dr. Ezequiel Yoo Work Phone: [facility] Work Phone: 06-06-2022 00:40-0400 Diastolic blood pressure 82 mm[Hg] Dr. Ezequiel Yoo Work Phone: [facility] Work Phone: 06-06-2022 00:40-0400 Heart rate 83 /min Dr. Ezequiel Yoo Work Phone: [facility] Work Phone: 06-06-2022 00:40-0400 Inhaled oxygen flow rate 2 L/min Dr. Ezequiel Yoo Work Phone: [facility] Work Phone: 06-06-2022 00:40-0400 Respiratory rate 15 /min Dr. Ezequiel Yoo Work Phone: [facility] Work Phone: 06-06-2022 00:40-0400 SaO2% (BldA) [Mass fraction] 98 % Dr. Ezequiel Yoo Work Phone: [facility] Work Phone: 06-06-2022 00:40-0400 Systolic blood pressure 115 mm[Hg] Dr. Ezequiel Yoo Work Phone: [facility] Work Phone: 06-05-2022 20:59-0400 Body height 167.[address] Ezequiel Yoo Work Phone: [facility] Work Phone: 06-05-2022 20:59-0400 Body mass index (BMI) [Ratio] 31.1 kg/m2 Dr. Ezequiel Yoo Work Phone: [facility] Work Phone: 06-05-2022 20:59-0400 Body weight 87.[address] Ezequiel Yoo Work Phone: [facility] Work Phone: 05-30-2022 08:39-0400 Body height 170.[address] Ezequiel Yoo Work Phone: [facility] Work Phone: 05-30-2022 08:39-0400 Body mass index (BMI) [Ratio] 30.7 kg/m2 Dr. Ezequiel Yoo Work Phone: [facility] Work Phone: 05-30-2022 08:39-0400 Body temperature 97.7 [degF] Dr. Ezequiel Yoo Work Phone: [facility] Work Phone: 05-30-2022 08:39-0400 Body weight 88.[address] Ezequiel Yoo Work Phone: [facility] Work Phone: 05-30-2022 08:39-0400 Diastolic blood pressure 72 mm[Hg] Dr. Ezequiel Yoo Work Phone: [facility] Work Phone: 05-30-2022 08:39-0400 Heart rate 76 /min Dr. Ezequiel Yoo Work Phone: [facility] Work Phone: 05-30-2022 08:39-0400 Respiratory rate 14 /min Dr. Ezequiel Yoo Work Phone: [facility] Work Phone: 05-30-2022 08:39-0400 SaO2% (BldA) [Mass fraction] 96 % Dr. Ezequiel Yoo Work Phone: [facility] Work Phone: 05-30-2022 08:39-0400 Systolic blood pressure 110 mm[Hg] Dr. Ezequiel Yoo Work Phone: [facility] Work Phone: 10-01-2017 09:33-0500 BMI (Body Mass Index) 31.79 kg/m2 [facility] Work Phone: 10-01-2017 09:33-0500 BP Diastolic 50 mm[Hg] [facility] Work Phone: 10-01-2017 09:33-0500 BP Systolic 100 mm[Hg] Hoda Carmona [facility] Work Phone: 10-01-2017 09:33-0500 Height 170.18 cm [facility] Work Phone: 10-01-2017 09:33-0500 Pulse (Heart Rate) 76 /min Hoda Carmona [facility] Work Phone: 10-01-2017 09:33-0500 Respiratory Rate 20 /min [facility] Work Phone: 10-01-2017 09:33-0500 Weight 92.08 kg [facility] Work Phone: 01-11-2017 10:10-0500 BMI (Body Mass Index) 31.6 kg/m2 Haryi Vazquez [facility] Work Phone: 01-11-2017 10:10-0500 BP Diastolic 62 mm[Hg] Harumi DeFinis [facility] Work Phone: 01-11-2017 10:10-0500 BP Diastolic 74 mm[Hg] Harumi DeFinis [facility] Work Phone: 01-11-2017 10:10-0500 BP Diastolic 70 mm[Hg] Harumi DeFinis [facility] Work Phone: 01-11-2017 10:10-0500 BP Systolic 108 mm[Hg] Harumi DeFinis [facility] Work Phone: 01-11-2017 10:10-0500 BP Systolic 110 mm[Hg] Harumi DeFinis [facility] Work Phone: 01-11-2017 10:10-0500 BSA (Body Surface Area) 2.03 m2 Harumi DeFinis [facility] Work Phone: 01-11-2017 10:10-0500 Pulse (Heart Rate) 64 /min Harumi DeFinis [facility] Work Phone: 01-11-2017 10:10-0500 Pulse (Heart Rate) 68 /min Harumi DeFinis [facility] Work Phone: 01-11-2017 10:10-0500 Pulse (Heart Rate) 70 /min Haryi Vazquez [facility] Work Phone: 01-11-2017 10:10-0500 Pulse Oximetry 96 % [facility] Work Phone: 01-11-2017 10:10-0500 Respiratory Rate 20 /min Haryi Vazquez [facility] Work Phone: 01-11-2017 10:10-0500 Weight 91.54 kg Haryi Vazquez [facility] Work Phone: 09-28-2016 13:58-0500 Height 170.18 cm Jamil Vazquez [facility] Work Phone: Encounters Encounter Date Encounter Type Care Provider Facility Start: 05-19-2025 End: 05-19-[address] Ezequiel Yoo MD Work Phone: -[facility] Start: 05-19-2025 End: 05-19-[address] Ezequiel Yoo MD -[facility] Work Phone: Start: 01-14-2025 End: 01-14-[address] Ezequiel Yoo MD -[facility] Work Phone: Start: 01-14-2025 End: 01-14-2025 ambulatory [facility] Facility:[facility] Start: 01-14-2025 End: 01-14-2025 [facility] Start: 01-08-2025 End: 01-08-2025 Patient encounter procedure Anuel Lazcano DECKER OPERATOR-C -[facility] Work Phone: Start: 01-08-2025 End: 01-08-2025 ambulatory Anuel Lazcano NP Facility:[facility] Start: 08-31-2024 End: 08-31-2024 ambulatory [facility] Facility:[facility] Start: 06-10-2024 End: 06-10-2024 ambulatory Ingrid Blankenship NP Facility:[facility] Start: 06-02-2024 End: 06-02-2024 ambulatory Ezequiel Yoo Facility:[facility] Start: 04-17-2024 End: 04-17-2024 ambulatory Ezequiel Yoo Facility:[facility] Start: 01-06-2024 End: 01-06-2024 Admission to same day surgery center Dr. Ezequiel Yoo Work Phone: [facility] Work Phone: Start: 01-06-2024 End: 01-06-[address] Ezequiel Yoo Work Phone: [facility] Work Phone: Start: 12-18-2023 End: 12-18-[address] Ezequiel Yoo Work Phone: [facility] Work Phone: Start: 04-29-2023 End: 04-29-[address] Ezequiel Yoo Work Phone: [facility] Work Phone: Start: 04-29-2023 End: 04-29-[address] Ezequiel Yoo Work Phone: [facility] Start: 02-11-2023 Non-patient / Non-visit Dr. Gisselle Yoo Work Phone: [place] Start: 02-11-[address] [facility] Start: 02-01-2023 Non-patient / Non-visit Dr. Gisselle Yoo Work Phone: [facility] Start: 02-01-2023 End: 02-01-[address] Ezequiel Yoo Work Phone: [facility] Work Phone: Start: 02-01-2023 End: 02-01-[address] Ezequiel Yoo Work Phone: [facility] Start: 01-18-2023 End: 01-18-[address] Ezequiel Yoo Work Phone: [facility] Work Phone: Start: 01-18-2023 End: 01-18-[address] Ezequiel Yoo Work Phone: [facility], [place] Start: 01-18-2023 End: 01-18-[address] Ezequiel Yoo Work Phone: [facility] Start: 01-11-[address] Ezequiel Yoo Work Phone: [facility] Comment on above: Cataract surgery nex t monthDr. Chacon Start: 01-11-2023 End: 01-11-2023 Admission to same day surgery center Dr. Ezequiel Yoo Work Phone: [facility] Start: 01-11-2023 End: 01-11-[address] Ezequiel Yoo Work Phone: [facility] Start: 06-25-2022 End: 06-25-[address] Ezequiel Yoo Work Phone: [facility] Start: 06-11-2022 End: 06-11-[address] Ezequiel Yoo Work Phone: [facility] Start: 06-06-2022 Non-patient / Non-visit Dr. Gisselle Yoo Work Phone: [facility] Start: 06-05-2022 Non-patient / Non-visit Dr. Gisselle Yoo Work Phone: [facility] Start: 06-05-2022 End: 06-06-2022 Evaluation and management of inpatient Dr. Ezequiel Yoo Work Phone: [facility] Unit Start: 05-30-2022 End: 05-30-[address] Ezequiel Yoo Work Phone: [facility] Procedures Date Procedure Procedure Detail Performing Clinician Start: 02-01-2023 Radionuclide imaging of perfusion of myocardium under exercise stress Dr. Ezequiel Yoo Work Phone: Start: 06-25-2022 US scan of thyroid Dr. Ezequiel Yoo Work Phone: Start: 06-05-2022 Plain chest X-ray Dr. Adele Yoo Work Phone: Start: 06-05-2022 CT angiography of ch est with contrast Dr. Ezequiel Yoo Work Phone: Start: 10-01-2017 End: 10-01-2017 OIL WELL LOGGER Luigi Quintanilla MD Start: 10-01-2017 End: 10-01-2017 Follow Up Appt 1 year Luigi Quintanilla MD Start: 01-18-2017 End: 10-01-2017 Stress Echocardiogram (treadmill) Beatrice Barry NP Work Phone: Start: 01-11-2017 End: 01-14-2017 *BMP Beatrice Barry DECKER OPERATOR Work Phone: Start: 01-11-2017 End: 01-11-2017 *CBC with Differential Beatrice Barry DECKER OPERATOR Work Phone: Start: 01-11-2017 End: 10-01-2017 Carotid duplex Beatrice Barry NP Work Phone: Start: 01-11-2017 End: 01-11-2017 Follow Up Appt Other Beatrice Barry DECKER OPERATOR Work Phone: Start: 01-11-2017 End: 01-14-2017 Magnesium [Mass/volume] in Serum or Plasma Beatrice Barry DECKER OPERATOR Work Phone: Start: 01-11-2017 End: 01-11-2017 MMM Beatrice Barry DECKER OPERATOR Work Phone: Start: 01-11-2017 End: 01-14-2017 Thyrotropin [Units/volume] in Serum or Plasma Beatrice Barry DECKER OPERATOR Work Phone: Start: 01-11-2017 End: 01-14-2017 Thyroxine (T4) [Mass/volume] in Serum or Plasma Beatrice Barry DECKER OPERATOR Work Phone: Start: 01-11-2017 End: 01-14-2017 *BMP Beatrice Barry DECKER OPERATOR Work Phone: Start: 01-11-2017 End: 01-11-2017 *CBC with Differential Beatrice Barry DECKER OPERATOR Work Phone: Start: 01-11-2017 End: 01-11-2017 Follow Up Appt Other Beatrice Barry DECKER OPERATOR Work Phone: Start: 01-11-2017 End: 01-14-2017 Magnesium Beatrice Barry DECKER OPERATOR Work Phone: Start: 01-11-2017 End: 01-11-2017 MMM Beatrice Barry DECKER OPERATOR Work Phone: Start: 01-11-2017 End: 01-14-2017 Thyroid stimulating hormone (TSH) Beatrice Barry DECKER OPERATOR Work Phone: Start: 01-11-2017 End: 01-14-2017 Thyroxine (T4) Beatrice Barry DECKER OPERATOR Work Phone: Start: 09-28-2016 End: 09-28-2016 JALEN Quintanilla MD Start: 09-28-2016 End: 09-28-2016 Follow Up Appt 1 year Luigi Quintanilla MD Start: 09-28-2016 End: 09-28-2016 OIL WELL LOGGERJaime Quintanilla MD Start: 09-28-2016 End: 09-28-2016 Follow Up Appt 1 year Luigi Quintanilla MD Start: 02-28-2016 End: 02-28-2016 JALEN Mota PA-C Work Phone: Start: 02-28-2016 End: 02-28-2016 Ecg routine ecg w/least 12 lds w/i&r Ksenia Mota PA-C Work Phone: Start: 02-28-2016 End: 02-28-2016 Follow Up Appt 6 months Ksenia oliver PA-C Work Phone: Start: 02-28-2016 End: 02-28-2016 OIL WELL LOGGER Ksenia Mota PA-C Work Phone: Start: 02-28-2016 [...] TRAMAINE Quintanilla MD Start: 11-22-2014 End: 11-22-2014 JAYE Ryder-C Work Phone: Start: 11-22-2014 End: 11-22-2014 Follow Up Appt 6 months Ksenia oliver PA-C Work Phone: Start: 11-22-2014 End: 11-22-2014 JALEN Mota PA-C Work Phone: Start: 11-22-2014 End: 11-22-2014 Follow Up Appt 6 months Ksenia oliver PA-C Work Phone: Start: 07-20-2014 End: 07-21-2014 *LISETTE Quintanilla MD Start: 07-20-2014 End: 07-21-2014 CBC [...] Luigi Quintanilla MD Start: 07-20-2014 End: 07-21-2014 *LISETTE Quintanilla MD Start: 07-20-2014 End: 07-21-2014 CBC [...] Luigi Quintanilla MD Start: 10-26-2013 End: 10-26-2013 OIL WELL LOGGER Ksenia Mota PA-C Work Phone: Start: 10-26-2013 End: 10-26-2013 Follow Up Appt 6 months Ksenia oliver PA-C Work Phone: Start: 10-26-2013 End: 10-26-2013 OIL WELL LOGGER Ksenia Mota PA-C Work Phone: Start: 10-26-2013 End: [...] months Dada Perez Start: 04-28-2013 End: 04-28-2013 MMDada Quintanilla MD Start: 04-28-2013 End: 05-04-2013 Nuclear stress test -exercise Luigi Quintanilla MD Start: 04-28-2013 End: 04-28-2013 Follow Up Appt 6 months Dada Perez Start: 04-28-2013 End: 04-28-2013 MMDada Quintanilla MD Start: 04-28-2013 End: 05-04-2013 Nuclear [...] Up Appt 6 months Saroj Canseco MD Bacteria identified in Blood by Culture Dr. Ezequiel Yoo Work Phone: Viral antigen assay Dr. Serjio Yoo Work Phone: Plan of Treatment Date Care Activity Detail Author Start: 01-06-2024 Patient discharge [facility] Start: 06-06-2022 Patient discharge [facility] Work Phone: Start: 06-06-2022 Following clinical pathway protocol [facility] Work Phone: Start: 06-06-2022 Care regimes management [facility] Work Phone: Start: 06-06-2022 Incentive spirometry [facility] Work Phone: Start: 06-06-2022 Insertion of catheter into peripheral vein [facility] Work Phone: Start: 06-06-2022 Notification of physician [facility] Work Phone: Start: 06-06-2022 Oxygen therapy [facility] Work Phone: Start: 06-06-2022 Providing care according to standard [facility] Work Phone: Start: 06-06-2022 Provision of activity privileges [facility] Work Phone: Start: 06-06-2022 [facility] Work Phone: Start: 06-06-2022 Patient referral to dietitian [facility] Work Phone: Start: 06-05-2022 Verification routine [facility] Work Phone: Start: 06-05-2022 Admission procedure [facility] Work Phone: Start: 06-05-2022 Blood culture [facility] Work Phone: Start: 06-05-2022 [facility] Work Phone: Start: 10-02-2018 End: 10-02-2018 Appointment Appointment [facility] Work Phone: Start: 10-01-2017 End: 10-01-2017 OIL WELL LOGGER OIL WELL LOGGER [facility] Work Phone: Start: 10-01-2017 End: 10-01-2017 Follow Up Appt 1 year Follow Up Appt 1 year [facility] Work Phone: Start: 10-01-2017 End: 10-01-2017 Appointment Appointment [facility] Work Phone: Start: 10-01-2017 End: 10-01-2017 Appointment Appointment [facility] Work Phone: Start: 01-18-2017 End: 01-18-2017 Stress Echocardiogram (treadmill) Stress Echocardiogram (treadmill) [facility] Work Phone: Start: 01-18-2017 End: 01-18-2017 Stress Echocardiogram (treadmill) Stress Echocardiogram (treadmill) [facility] Work Phone: Start: 01-11-2017 End: 01-14-2017 *BMP *BMP [facility] Work Phone: Start: 01-11-2017 End: 01-11-2017 *CBC with Differential *CBC with Differential [facility] Work Phone: Start: 01-11-2017 End: 01-11-2017 Carotid duplex Carotid duplex [facility] Work Phone: Start: 01-11-2017 End: 01-11-2017 Follow Up Appt Other Follow Up Appt Other [facility] Work Phone: Start: 01-11-2017 End: 01-14-2017 Magnesium *Magnesium [facility] Work Phone: Start: 01-11-2017 End: 01-11-2017 MMM MMM [facility] Work Phone: Start: 01-11-2017 End: 01-17-2017 Nuclear stress test -exercise Nuclear stress test -exercise [facility] Work Phone: Start: 01-11-2017 End: 01-14-2017 Thyroid stimulating hormone (TSH) *TSH [facility] Work Phone: Start: 01-11-2017 End: 01-14-2017 Thyroxine (T4) *T4 (Total) [facility] Work Phone: Start: 01-11-2017 End: 01-14-2017 *BMP *BMP [facility] Work Phone: Start: 01-11-2017 End: 01-11-2017 *CBC with Differential *CBC with Differential [facility] Work Phone: Start: 01-11-2017 End: 01-11-2017 Carotid duplex Carotid duplex [facility] Work Phone: Start: 01-11-2017 End: 01-11-2017 Follow Up Appt Other Follow Up Appt Other [facility] Work Phone: Start: 01-11-2017 End: 01-14-2017 Magnesium *Magnesium [facility] Work Phone: Start: 01-11-2017 End: 01-11-2017 MMM MMM [facility] Work Phone: Start: 01-11-2017 End: 01-17-2017 Nuclear stress test -exercise Nuclear stress test -exercise [facility] Work Phone: Start: 01-11-2017 End: 01-14-2017 Thyroid stimulating hormone (TSH) *TSH [facility] Work Phone: Start: 01-11-2017 End: 01-14-2017 Thyroxine (T4) *T4 (Total) [facility] Work Phone: Start: 09-28-2016 End: 09-28-2016 OIL WELL LOGGER OIL WELL LOGGER [facility] Work Phone: Start: 09-28-2016 End: 09-28-2016 Follow Up Appt 1 year Follow Up Appt 1 year [facility] Work Phone: Start: 09-28-2016 End: 09-28-2016 OIL WELL LOGGER OIL WELL LOGGER [facility] Work Phone: Start: 09-28-2016 End: 09-28-2016 Follow Up Appt 1 year Follow Up Appt 1 year [facility] Work Phone: Start: 02-28-2016 End: 02-28-2016 OIL WELL LOGGER OIL WELL LOGGER [facility] Work Phone: Start: 02-28-2016 End: 02-28-2016 Ecg routine ecg w/least 12 lds w/i&r EKG (In office) [facility] Work Phone: Start: 02-28-2016 End: 02-28-2016 Follow Up Appt 6 months Follow Up Appt 6 months [facility] Work Phone: Start: 02-28-2016 End: 02-28-2016 OIL WELL LOGGER OIL WELL LOGGER [facility] Work Phone: Start: 02-28-2016 End: 02-28-2016 Electrocardiogram, complete EKG (In office) [facility] Work Phone: Start: 02-28-2016 End: 02-28-2016 Follow Up Appt 6 months Follow Up Appt 6 months [facility] Work Phone: Start: 08-19-2015 End: 08-19-2015 Follow Up Appt 6 months Follow Up Appt 6 months [facility] Work Phone: Start: 08-19-2015 End: 08-19-2015 MMM MMM [facility] Work Phone: Start: 08-19-2015 End: 08-19-2015 Follow Up Appt 6 months Follow Up Appt 6 months [facility] Work Phone: Start: 08-19-2015 End: 08-19-2015 MMM MMM [facility] Work Phone: Start: 11-22-2014 End: 11-22-2014 OIL WELL LOGGER OIL WELL LOGGER [facility] Work Phone: Start: 11-22-2014 End: 11-22-2014 Follow Up Appt 6 months Follow Up Appt 6 months [facility] Work Phone: Start: 11-22-2014 End: 11-22-2014 OIL WELL LOGGER OIL WELL LOGGER [facility] Work Phone: Start: 11-22-2014 End: 11-22-2014 Follow Up Appt 6 months Follow Up Appt 6 months [facility] Work Phone: Start: 07-20-2014 End: 07-21-2014 *BMP *BMP [facility] Work Phone: Start: 07-20-2014 End: 07-21-2014 CBC W Auto Differential panel - Blood *CBC without Diff [facility] Work Phone: Start: 07-20-2014 End: 07-29-2014 Chest x-ray X-Ray, Chest, PA & Lateral [facility] Work Phone: Start: 07-20-2014 End: 07-21-2014 Ecg routine ecg w/least 12 lds w/i&r EKG (In office) [facility] Work Phone: Start: 07-20-2014 End: 07-21-2014 Echocardiography Echocardiogram (complete) [facility] Work Phone: Start: 07-20-2014 End: 08-19-2015 Follow Up Appt 3 months Follow Up Appt 3 months [facility] Work Phone: Start: 07-20-2014 End: 07-21-2014 INR Coag RelTime (PPP) *PT/INR [facility] Work Phone: Start: 07-20-2014 End: 07-21-2014 Left Heart Cath Left Heart Cath [facility] Work Phone: Start: 07-20-2014 End: 08-19-2015 MMM MMM [facility] Work Phone: Start: 07-20-2014 End: 07-21-2014 *BMP *BMP [facility] Work Phone: Start: 07-20-2014 End: 07-21-2014 CBC W Auto Differential panel - Blood *CBC without Diff [facility] Work Phone: Start: 07-20-2014 End: 07-29-2014 Chest x-ray X-Ray, Chest, PA & Lateral [facility] Work Phone: Start: 07-20-2014 End: 07-21-2014 Coagulation factor induced.INR assay in platelet poor plasma *PT/INR [facility] Work Phone: Start: 07-20-2014 End: 07-21-2014 Echocardiography Echocardiogram (complete) [facility] Work Phone: Start: 07-20-2014 End: 07-21-2014 Electrocardiogram, complete EKG (In office) [facility] Work Phone: Start: 07-20-2014 End: 08-19-2015 Follow Up Appt 3 months Follow Up Appt 3 months [facility] Work Phone: Start: 07-20-2014 End: 07-21-2014 Left Heart Cath Left [facility] Work Phone: Start: 07-20-2014 End: 08-19-2015 MMM MMM [facility] Work Phone: Start: 10-26-2013 End: 10-26-2013 OIL WELL LOGGER JALEN [facility] Work Phone: Start: 10-26-2013 End: 10-26-2013 Follow Up Appt 6 months Follow Up Appt 6 months [facility] Work Phone: Start: 10-26-2013 End: 10-26-2013 OIL WELL LOGGER JALEN [facility] Work Phone: Start: 10-26-2013 End: 10-26-2013 Follow Up Appt 6 months Follow Up Appt 6 months [facility] Work Phone: Start: 08-18-2013 End: 09-14-2013 *Hepatic Function Panel *Hepatic Function Panel [facility] Work Phone: Start: 08-18-2013 End: 09-14-2013 Lipid panel [AGGREGATE] *Lipid Profile [facility] Work Phone: Start: 08-18-2013 End: 09-14-2013 *Hepatic Function Panel *Hepatic Function Panel [facility] Work Phone: Start: 08-18-2013 End: 09-14-2013 Lipid panel [AGGREGATE] *Lipid Profile [facility] Work Phone: Start: 04-28-2013 End: 04-28-2013 Follow Up Appt 6 months Follow Up Appt 6 months [facility] Work Phone: Start: 04-28-2013 End: 04-28-2013 MMM MMM [facility] Work Phone: Start: 04-28-2013 End: 04-28-2013 Nuclear stress test -exercise Nuclear stress test -exercise [facility] Work Phone: Start: 04-28-2013 End: 04-28-2013 Follow Up Appt 6 months Follow Up Appt 6 months [facility] Work Phone: Start: 04-28-2013 End: 04-28-2013 MMM MMM [facility] Work Phone: Start: 04-28-2013 End: 04-28-2013 Nuclear stress test -exercise Nuclear stress test -exercise [facility] Work Phone: Start: 03-11-2013 End: 03-13-2013 *Hepatic Function Panel *Hepatic Function Panel [facility] Work Phone: Start: 03-11-2013 End: 03-13-2013 Lipid panel [AGGREGATE] *Lipid Profile [facility] Work Phone: Start: 03-11-2013 End: 03-13-2013 *Hepatic Function Panel *Hepatic Function Panel [facility] Work Phone: Start: 03-11-2013 End: 03-13-2013 Lipid panel [AGGREGATE] *Lipid Profile [facility] Work Phone: Start: 09-15-2012 End: 09-15-2012 Follow Up Appt 6 months Follow Up Appt 6 months [facility] Work Phone: Start: 09-15-2012 End: 09-15-2012 Follow Up Appt 6 months Follow Up Appt 6 months [facility] Work Phone: Start: 08-20-2012 End: 09-10-2012 *Hepatic Function Panel *Hepatic Function Panel [facility] Work Phone: Start: 08-20-2012 End: 09-10-2012 Lipid panel [AGGREGATE] *Lipid Profile [facility] Work Phone: Start: 08-20-2012 End: 09-10-2012 *Hepatic Function Panel *Hepatic Function Panel [facility] Work Phone: Start: 08-20-2012 End: 09-10-2012 Lipid panel [AGGREGATE] *Lipid Profile [facility] Work Phone: Start: 03-17-2012 End: 03-17-2012 Follow Up Appt 6 months Follow Up Appt 6 months [facility] Work Phone: Start: 03-17-2012 End: 03-17-2012 Follow Up Appt 6 months Follow Up Appt 6 months [facility] Work Phone: Bacteria identified in Blood by Culture Blood Culture [facility] Work Phone: Blood culture [facility] Work Phone: Catheterization of l eft heart [facility] CBC W Auto Different ial panel - Blood [facility] Comprehensive metabo lic 1999 panel - Serum or Plasma [facility] Lipid 1996 panel - S donald or Plasma [facility] Patient referral [facility] Work Phone: Prostate specific an tigen measurement [facility] Radionuclide imaging of perfusion of myocardium under exercise stress [facility] US Heart [facility] Vitamin B12 measurement [facility] XR Chest PA and Lateral [facility] Immunizations Immunization Date Immunization Notes Care Provider [facility]2024 Seasonal trivalent influenza vaccine, adjuvanted, preservative free Dr. Ezequiel Yoo MD Work Phone: [facility] 09-06-2023 influenza, injectabl e, quadrivalent, preservative free Dr. Ezequiel Yoo Work Phone: [facility] 09-06-2022 influenza, injectabl e, quadrivalent, preservative free Dr. Ezequiel Yoo Work Phone: [facility] 09-06-2022 influenza, seasonal, injectable Dr. Ezequiel Yoo Work Phone: [facility] 08-29-2020 influenza, injectabl e, quadrivalent, preservative free Dr. Ezequiel Yoo Work Phone: [facility] 08-29-2020 influenza, seasonal, injectable Dr. Ezequiel Yoo Work Phone: [facility] 08-28-2019 tetanus toxoid, redu ayanna diphtheria toxoid, and acellular pertussis vaccine, adsorbed Dr. Ezequiel Yoo Work Phone: [facility] 09-23-2018 pneumococcal conjuga te vaccine, [address] Ezequiel Yoo Work Phone: [facility] Payers Date Payer Category Payer Self-pay [id number] 2013 Medicare [id number] 2012 Unknown [id number] Unknown [id number] [id number] Unknown [id number] Unknown [id number] [id number] Unknown [id number] [id number] Unknown [id number] [id number] [id number] Unknown [id number] [id number] [id number] Unknown [id number] [id number] Social History Date Type Detail Facility Start: 05-30-2022 End: 01-06-2024 Tobacco smoking status NHIS Unknown if ever smoked [facility] Start: 1945 Sex Assigned At Male [facility] Start: 01-08-2025 Tobacco smoking stat us VAIS Ex-smoker (finding) [facility] Start: 01-27-2025 Sex Male (finding) [facility] Medical Equipment Procedure Code Equipment Code Equipment Origin al Text Equipment Identifier Dates Blood Sugar Diagnostic (Freestyle Lite Strips) strip Start: 08-31-2024 Lancets (Freesty le Lancets) 28 gauge misc Start: 08-31-2024 Blood Sugar Diagnostic (Freestyle Lite Strips) strip Start: 08-31-2024 Lancets (Freesty le Lancets) 28 gauge [facility] Start: 08-31-2024 Goals Date Patient Goal Desired Activity /State Functional Status Date Assessment Result Facility 06-06-2022 Functional status Activity Ability Indepe ndent [facility] Work Phone: Mental Status Date Assessment Result Facility 06-06-2022 Cognitive function Appropriate;Joyce ventura [facility] Work Phone: 06-06-2022 Cognitive function Voice/Name [facility] Work Phone: Evaluation note 01-08-2025 Note Date & Type Note Facility 01-08-2025 Evaluation note Diagnosis Onset Date Resolution 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 January 08, 2 025 8:50am Essential (primary) hypertension chronic January 08, 2 025 8:50am Heart failure with reduced ejection fraction chronic 2024 8:50am Hyperlipemia chronic December 8:50am Type 2 diabetes mellitus chronic January 08, 2025 8:50am Essential (primary) hypertension chronic January 14, 2 025 2:28pm Hyperlipemia chronic December 2:28pm Type 2 diabetes mellitus chronic January 14, 2025 2:28pm [facility] Work Phone: Evaluation note 07-01-1990 Note Date & Type Note Facility 07-01-1990 Evaluation note Diagnosis Onset Date Bilateral foot pain chronic Hyperlipemia chronic COVID-19 acute History of coronary angioplasty July 01, 1990 resolved COVID-19 acute [facility] Work Phone: Evaluation note Note Date & Type Note Facility Evaluation note Diagnosis Onset Date Bilateral foot pain chronic Essential (primary) hypertension chronic Hyperlipemia chronic Type 2 diabetes mellitus [facility] Work Phone: Evaluation note Note Date & Type Note Facility Evaluation note Diagnosis Onset Date Preop cardiovascular exam ac [place] 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 Hyperlipemia chronic Coronary artery disease procurement agent royal Essential (primary) hypertension chronic Type 2 diabetes mellitus chr [facility] Work Phone: Evaluation note Note Date & Type Note Facility Evaluation note Diagnosis Onset Date Preop cardiovascular exam [place] 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 Hyperlipemia chronic Coronary artery disease procurement agent royal Essential (primary) hypertension chronic Type 2 diabetes mellitus chr onic Bilateral impacted cerumen a cute Essential (primary) hypertension chronic Type 2 diabetes mellitus chr onic [facility] Work Phone: Evaluation note Note Date & Type Note Facility Evaluation note Diagnosis Onset Date 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 Hyperlipemia chronic [facility] Work Phone: Evaluation note Note Date & Type Note Facility Evaluation note No assessment information availa [facility] Work Phone: Reason for referral (narrative) Note Date & Type Note Facility Reason for referral (narrative) No reason for referral information available [facility] Work Phone: Chief Complaint and Reason for Visit Chief Complaint 6 M FU Reason for Visit Bilateral foot pain Essential (primary) hypertension Hyperlipemia Type 2 diabetes mellitus Chief Complaint 6 M FU COVID 19 PNEUMONIA Reason for Visit Bilateral foot pain Essential (primary) hypertension Hyperlipemia Type 2 diabetes mellitus Chief Complaint 6 M FU COVID 19 PNEUMONIA COVID 19 PNEUMONIA COVID 19 PNEUMONIA [facility] F[facility] Reason for Visit Bilateral foot pain Hyperlipemia COVID-19 History of coronary angioplasty COVID-19 Chief Complaint 6 M FU COVID 19 PNEUMONIA COVID 19 PNEUMONIA COVID 19 PNEUMONIA [facility] FU NODULE Reason for Visit Bilateral foot pain Hyperlipemia COVID-19 History of coronary angioplasty COVID-19 Chief Complaint 1 Y FU 6 M FU Reason for Visit Preop cardiovascular exam Atherosclerosis of coronary artery of [place] heart without angina pectoris Hyperlipemia Coronary artery disease Essential (primary) hypertension Type 2 diabetes mellitus Chief Complaint 1 Y FU 6 M FU CAD/ASHD Reason for Visit Preop cardiovascular exam Atherosclerosis of coronary artery of [place] heart without angina pectoris Hyperlipemia Coronary artery disease Essential (primary) hypertension Type 2 diabetes mellitus Chief Complaint 1 Y FU 6 M FU CAD/ASHD SCREENING 3 m fu Reason for Visit Preop cardiovascular exam Atherosclerosis of coronary artery of [place] heart without angina pectoris Hyperlipemia Coronary artery disease Essential (primary) hypertension Type 2 diabetes mellitus Bilateral impacted cerumen Essential (primary) hypertension Type 2 diabetes mellitus Chief Complaint Chest pain, stress i n January 2023 see NN L.L. CP Reason for Visit Atherosclerosis of c oronary artery of [place] heart without angina pectoris Hyperlipemia Chief Complaint Admit Date 6 M FU January 08, 2025 8:50am 4 m fu January 14, 2025 2:28pm Reason for Visit Admit Date Atherosclerosis of coronary artery of [place] heart without angina pectoris January 08, 2025 8:50am Essential (primary) hypertension 2024 8:50am Heart failure with reduced ejection frac tion January 08, 2025 8:50am Hyperlipemia January 08, 2025 8:50am Type 2 diabetes mellitus January 08, 2025 8:50am Essential (primary) hypertension 2024 2:28pm Hyperlipemia January 14, 2025 2:28pm Type 2 diabetes mellitus January 14, 2025 2:28pm Chief Complaint Admit Date 4 M FU May 19, 2025 10:25 am Family History Relationship Condition Age at Onset Recorded Date/T kyler mother Malignant neoplasm of colon Unknown father Diabetes mellitus Unknown brother Diabetes mellitus Unknown Advance Directives Advance Directive Response Recorded Date/ Time Living Will Yes July 23 7:45am Power of Help Desk Technician Yes July 23, 2021 7:45am Advance Directive Response Recorded Date/ Time Name of Medical Power of Help Desk Technician Bel parker June 05, 2022 9:20pm Living Will Yes June 05, 2022 9:20pm Power of Help Desk Technician Yes June 05 9:20pm Advance Directive Response Recorded Date/ Time Name of Medical Power of Help Desk Technician Danisha Maldonado saturnino June 06, 2022 6:10am Living Will Yes June 06, 2022 6:10am Power of Help Desk Technician Yes June 06 6:10am Advance Directive Response Recorded Date/ Time Living Will Yes June 06, 2022 5:10am Power of Help Desk Technician Yes June 06 5:10am Advance Directive Response Recorded Date/ Time Living Will Yes June 06, 2022 6:10am Power of Help Desk Technician Yes June 06 6:10am Advance Directive Response Recorded Date/ Time Advance Directives on File Yes [place] leyvay 2023 7:06am Name of Medical Power of Help Desk Technician Missy (Spouse ) January 06, 2024 7:06am Advance Directives Yes December 7:06am Living Will Yes January 06, 024 7:06am Power of Help Desk Technician Yes January 06, 2024 7:06am Advance Directive Response Recorded Date/ Time Living Will Yes April 17, 2024 9 :25am Power of Help Desk Technician Yes April 17, 2024 9:25am Advance Directives Yes April 17 9:25am Advance Directive Response Recorded Date/ Time Advance Directives Yes April 17 9:25am Summary Purpose Additional Source Comments Goals (unrecognized section and content) Goals may be documented in a n alternate sectionGoals may be documented in an alternate sectionGoals may be documented in an alternate sectionGoals may be documented in an alternate sectionGoals may be documented in an alternate sectionGoals may be documented in an alternate sectionGoals may be documented in an alternate sectionGoals may be documented in an alternate section Care Teams (unrecognized sec tion and content) Team Status: Active Member Role Status Dates Dr. Ezequiel Yoo MD Family Provider Active Dr. Ezequiel Yoo MD Primary Care Provider Active Team Status: Inactive Member Role Status Dates Dr. Ezequiel Yoo MD Primary Care Samaria hicks, Attending Provider, Referring Provider Active Team Status: Inactive Member Role Status Dates Dr. Ezequiel Yoo MD Primary Care Provider, Refer ring Provider Active Dr. Luigi Quintanilla MD Attending Provider Active Team Status: Active Member Role Status Dates Dr. Ezequiel Yoo MD Primary Care Provider Active Dr. Luigi Quintanilla MD Attending Provider Active Team Status: Inactive Member Role Status Dates Dr. Ezequiel Yoo MD Primary Care Provider Active Dr. Luigi Quintanilla MD Attending Provider Active Team Status: Active Member Role Status Dates Dr. Ezequiel Yoo MD Primary Care Provider Active Dr. Luigi Quintanilla MD Attending Provider, Referring Pro vider Active Team Status: Active Member Role Status Dates Dr. Ezequiel Yoo MD Primary Care Provider Active Dr. Hayder Grier MD Attending Provider Active Team Status: Active Member Role Status Dates Dr. Ezequiel Yoo MD Primary Care Provider Active Self Referred Attending Provider Active Team Status: Inactive Member Role Status Dates Dr. Ezequiel Yoo MD Primary Care Provider, Atten ding Provider Active Team Status: Inactive Member Role Status Dates Dr. Ezequiel Yoo MD Primary Care Provider, Refer ring Provider Active Ksenia Mota PA, PA Attending Provider Active Team Status: Inactive Member Role Status Dates Dr. Ezequiel Yoo MD Primary Care Provider Active Dr. Luigi Quintanilla MD Attending Provider, Referring Pro vider Active Team Status: Active Member Role Status Dates Dr. Ezequiel Yoo MD Primary Care Provider Active Team Status: Inactive Member Role Status Dates Dr. Ezequiel Yoo MD Primary Care Provider Active Start: January 08, 2025 End: January 08, 2025 Dr. Ezequiel Yoo MD Referring Provider Active Start: January 08, 2025 End: January 08, 2025 Anuel Lazcano DECKER OPERATOR, DECKER OPERATOR-C Attending Provider Active S tart: January 08, 2025 End: January 08, 2025 Team Status: Inactive Member Role Status Dates Dr. Ezequiel Yoo MD Primary Care Provider Active Start: January 14, 2025 End: January 14, 2025 Dr. Ezequiel Yoo MD Attending Provider Active Start: January 14, 2025 End: January 14, 2025 Dr. Ezequiel Yoo MD Referring Provider Active Start: January 14, 2025 End: January 14, 2025 Team Status: Active Member Role/Relationship Status Dates Dr. Ezequiel Yoo MD Primary Care Provider Active Team Status: Inactive Member Role/Relationship Status Dates Dr. Ezequiel Yoo MD Primary Care Provider Active Start: May 19, 2025 End: May 19, 2025 Dr. Ezequiel Yoo MD Attending Provider Active Start: May 19, 2025 End: May 19, 2025 Dr. Ezequiel Yoo MD Referring Provider Active Start: May 19, 2025 End: May 19, 2025 (unrecognized sect ion and content) No Status Records Found INFORMATION SOURCE (unrecogn ized section and content) DATE CREATED AUTHOR 01/30/2025 [facility] FOR RECORDS PERTAINING TO PATIENTS WHO ARE [...] BE BASED ON THE PRIMARY CLINICAL RECORDS. [facility] [employer] [facility]. provides no warranty or guarantee of the accuracy or completeness of information in this document.
--- OUTSIDE RECORDS SUMMARY | 2025-05-20 07:22 | XMS RPT_ITS | CCD ---
Author Organization [facility] Care Team Providers Care Poker Dealer Name Role Phone Jamil Vazquez Y Unavailable Unavailable Carmona, Hoda Y Unavailable Mtahew Hoda Y Unavailable Lolis CAMPOS, Jessica Street Unavailable Unavailable Dr. Ezequiel Yoo Primary Care Provider [phone] Dr. Ezequiel Yoo Attending Provider [phone] Dr. Ezequiel Yoo Referring Provider [phone] Dr. Vinod Strong Emergency Provider Dr. Tanner Camacho Admit Provider Dr. Tanner Camacho Attending Provider Dr. Tanner Camacho Other Provider Dr. Alex Butts Attending Provider Dr. Alex Butts [facility] Unavailab Dr. Ezequiel Cheung Primary [...] TABS One tablet by mouth daily ASPIRIN [id number] Mely Torres Start: 04-12-2006 take 1 tablet by sabina th once daily Aspirin 81 MG tablet,delayed release (DR/EC) Active 81 mg PO DAILY July 27, 2014 12:00am Check with primary doctor Start: 04-12-2006 take 1 tablet by sabina th once daily ASPIRIN 81 MG TABS One tablet by mouth daily ASPIRIN [id number] Mely Torres atorvastatin 40 mg oral tablet (20 sources) HMG-CoA Reductase Inhibitor Start: 04-28-2013 End: 02-15-2025 take 1 tablet by mouth at bedtime Atorvastatin 40 mg tablet Active 40 mg PO AT BEDTIME 90 3 February 15, 2025 11:27am Start: 02-14-2010 take 1 tablet by sabina th once daily LIPITOR 80 MG TABS One tablet by mouth daily ATORVASTATIN CALCIUM [id number] Saroj Canseco MD Blood-Glucose Meter (Freesty le [...] TABS one tab twice daily METOPROLOL TARTRATE [id number] Luigi Quintanilla MD Start: 03-03-2010 End: 11-27-2017 [...] CAPS One tablet by mouth daily RAMIPRIL [id number] Luigi Quintanilla MD 12 hr ranolazine 500 [...] AC 10 MG CHEW As needed FAMOTIDINE [id number] Mely Torres Start: 02-01-2003 End: 07-20-2014 PEPCID AC 10 MG CHEW As need ed FAMOTIDINE [id number] Luigi Quintanilla MD Start: 02-01-2003 End: 07-20-2014 PEPCID AC 10 MG CHEW As need ed FAMOTIDINE [id number] Mely Torres furosemide 20 mg oral tablet [...] daily ISOSORBIDE MONONITRA TE ER 30 MG [id number] One tablet by mouth daily ISOSORBIDE MONONITRATE [id number] Luigi Quintanilla MD Start: 03-03-2010 End: 04-28-2013 take 1 tablet by mouth once daily ISOSORBIDE MONONITRA TE ER 60 MG [id number] One tablet by mouth daily ISOSORBIDE MONONITRATE [id number] Luigi Quintanilla MD meclizine hydrochloride 12.5 mg oral tablet (4 sources) Antiemetic Start: 01-11-2017 MECLIZINE HCL 12.5 MG TABS take 1-2 tabs every 8 hours as needed dizziness MECLIZINE HCL [id number] Beatrice Barry PERIODICALS LIBRARY ASSISTANT 24 hr metFORMIN hydrochloride 500 mg extended [...] One tablet by mouth daily METFORMIN HCL [id number] Luigi Quintanilla MD MULTIPLE VITAMIN (1 source) Start: 02-01-2003 take 1 tablet by mouth once daily MULTIVITAMINS TABS One tablet by mouth daily MULTIPLE VITAMIN [id number] Mely Torres MULTIPLE VITAMIN (3 sources) Start: 02-01-2003 take 1 tablet by mouth once daily MULTIVITAMINS TABS One tablet by mouth daily MULTIPLE VITAMIN [id number] Mely Torres nitroglycerin 0.4 mg sublingual tablet [...] X as needed for chest pain NITROGLYCERIN [id number] Luigi Quintanilla MD Problems Active Problems Problem [...] (3 sources) Long-term drug therapy; Translations: [Other nursing home (current) drug therapy] Onset: 01-26-2011 01-26-2011 Unclassified [...] with RCA Other aftercare (1 source) Other nursing home (current) drug therapy; Translations: [Other nursing home (current) drug therapy] Onset: 01-26-2011 01-26-2011 [...] Urea nitrogen/Creatinine [Mass ratio] 19.9 mg/mg 10- [facility] Basic Metabolic Profile (BMP )on 01-14-2025 Anion gap [Moles/Vol] 10 mmol/L Normal 5-15 [facility] Comment on above: Performed By: #### L 500.2500 #### [facility] [address] [place], [address] BUN/CRE 19.9 RATIO Normal - [facility] Comment on above: Performed By: #### L 500.2500 #### [facility] [address] [place], [address] Calcium [Mass/Vol] 9.5 mg/dL Normal 7.6-11.0 [facility] Comment on above: Performed By: #### L 500.2500 #### [facility] [address] [place], [address] Chloride [Moles/Vol] 101 mmol/L Normal 96-108 [facility] Comment on above: Performed By: #### L 500.2500 #### [facility] [address] [place], [address] CO2 [Moles/Vol] 26.9 mmol/L Normal 22.0-29.0 [facility] Comment on above: Performed By: #### L 500.2500 #### [facility] [address] [place], [address] Creatinine [Mass/Vol] 1.0 mg/dL Normal 0.8-1.3 [facility] Comment on above: Performed By: #### L 500.2500 #### [facility] [address] [place], [address] GFR/1.73 sq M.predicted among non-blacks MDRD (S/P/Bld) [Vol rate/Area] 81 mL/min/{1.73_m2} Normal >60 [facility] Comment on above: Result Comment: mL/m in/1.73m2 CKD-EPI Creatinine Equation (2020) Performed By: #### L 500.2500 #### [facility] [address] [place], [address] Glucose [Mass/Vol] 125 mg/dL High 70-99 [facility] Comment on above: Performed By: #### L 500.2500 #### [facility] [address] [place], [address] Potassium [Moles/Vol] 4.6 mmol/L Normal 3.3-5.1 [facility] Comment on above: Performed By: #### L 500.2500 #### [facility] [address] [place], [address] Sodium [Moles/Vol] 138 mmol/L Normal 133-145 [facility] Comment on above: Performed By: #### L 500.2500 #### [facility] [address] [place], [address] Urea nitrogen [Mass/Vol] 19 mg/dL Normal 4-19 [facility] Comment on above: Performed By: #### L 500.2500 #### [facility] [address] [place], [address] Carbon dioxide measurementOr dered By: Ezequiel Yoo on 01-14-2025 CO2 [Moles/Vol] 26.9 mmol/L 22.0-29.0 [facility] Chloride measurementOrdered By: Ezequiel Yoo on 01-14-2025 Chloride [Moles/Vol] 101 mmol/L 96-108 [facility] Creatinine [Moles/Vol]Ordere d By: Ezequiel Yoo on 01-14-2025 Creatinine [Mass/Vol] 1.0 mg/dL 0.8-1.3 [facility] GFR/1.73 sq M.predicted efrain g non-blacks MDRD (S/P/Bld) [Vol rate/Area]Ordered By: Ezequiel Yoo on 01-14-2025 Estimated GFR (MDRD) Non-Af Amer 81 >60 [facility] Comment on above: mL/min/1.73m2 CKD-EP I Creatinine Equation (2020) Internal Medicine Office Vis iton 01-14-2025 Internal Medicine Office Visit [facility] [address] [place] [address] [place] [address] OFFICE VISIT Date of Service: 01/14/25 MR#: [id number] Acct: [id number] Name: BRY POTTER Rep #: [id number] : 1945 Provider: Dr. Ezequiel rodriguez MD Age/Sex: 79/M Location[place] [facility] Status: Signed Intake Vital Signs 08/31/24 08:04 [...] any concerns; reports I feel really good. [facility] Medical History Mild cognitive impairment Encounter for vitamin deficiency screening Bilateral impacted cerumen Flu vaccine need Diabetes Former smoker Congestive heart failure (CHF) Coronary artery disease Myocardial infarct Chest pain COVID-19 Cervical paraspinal muscle spasm Bilateral foot pain Type 2 diabetes mellitus Atherosclerosis of coronary artery of [place] heart without angina pectoris Old inferior wall [...] of breath, (more content not included)... Normal [facility] - Hematology and Cell countsOrdered By: Ezequiel Yoo on 01-14-2025 HbA1c (Bld) [Mass fraction] 7.2 % High 4.2-6.3 [facility] Serum glucose measurement (m ass/volume)Ordered By: Ezequiel Yoo on 01-14-2025 Glucose [Mass/Vol] 125 mg/dL High 70-99 [facility] Serum or plasma anion gap de termination (moles/volume)Ordered By: Ezequiel Yoo on 01-14-2025 Anion gap [Moles/Vol] 10 mmol/L 5-15 [facility] Serum or plasma calcium viktor urement (mass/volume)Ordered By: Ezequiel Yoo on 01-14-2025 Calcium [Mass/Vol] 9.5 mg/dL 7.6-11.0 [facility] Serum or plasma potassium me asurementOrdered By: Ezequiel Yoo on 01-14-2025 Potassium [Moles/Vol] 4.6 mmol/L 3.3-5.1 [facility] Serum or plasma sodium measu rement (moles/volume)Ordered By: Ezequiel Yoo on 01-14-2025 Sodium [Moles/Vol] 138 mmol/L 133-145 [facility] Serum or plasma urea nitroge n measurement (mass/volume)Ordered By: Ezequiel Yoo on 01-14-2025 Urea nitrogen [Mass/Vol] 19 mg/dL 4-19 [facility] Cardiology Visit Reporton Cardiology Visit Report [facility] 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 [id number] collaterals were noted. He underwent stress testing [...] air Intake Visit Reasons: 6 M FU Metal Grinder Required: No Is patient in pain?: No [...] diabetes mellitus Atherosclerosis of coronary artery of [place] heart without angina pectoris Old inferior wall myocardial infarction Essential (primary) hypertension history left shoulder surgery Hyperlipemia Type 2 diabetes mellitus Surgical History (Reviewed 01/08/25 @ 09:08 b (more content not included)... Normal [facility] Internal Medicine Office Vis devante 08-31-2024 Internal Medicine Office Visit [facility] [place] [address] [place] [address] OFFICE VISIT Date of Service: 08/31/24 MR#: [id number] Acct: [id number] Name: BRY POTTER Rep #: [id number] : 1945 Provider: Dr. Ezequiel rodriguez MD Age/Sex: 78/M Location: [facility] Status: Signed Intake Vital Signs 04/17/24 08:49 [...] M FU Chief Complaint: 4 M FU Metal Grinder Required: No Accompanied by: Self Is patient [...] diabetes mellitus Atherosclerosis of coronary artery of [place] heart without angina pectoris Old inferior wall [...] exertion, lighthe (more content not included)... Normal [facility] Cardiology Visit Reporton Cardiology Visit Report [facility] 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 Jqol-zr-nxyvi collaterals were noted. He underwent stress testing [...] the past year?: No PFSH Medical History (Reviewed 06/10/24 @ 09:02 by Ingrid Blankenship PERIODICALS LIBRARY ASSISTANT, PERIODICALS LIBRARY ASSISTANT-C) Mild cognitive impairment Encounter for vitamin deficiency screening Bilateral impacted cerumen Flu vaccine need Diabetes Former smoker Congestive heart failure (CHF) Coronary artery disease Myocardial infarct Chest pain COVID-19 Cervical paraspinal muscle spasm Bilateral foot pain Type 2 diabetes mellitus Atherosclerosis of coronary artery of [place] heart without angina pectoris Old inferior wall myocardial infarction Essential (primary) hypertension history left shoulder surgery Hyperlipemia Type 2 diabetes mellitus Surgical History (Reviewed 06/10/24 @ 09:03 by Ingrid Blankenship PERIODICALS LIBRARY ASSISTANT, PERIODICALS LIBRARY ASSISTANT-C) Hx of cardiac cath History of left heart catheterization (07/28/14) History of coronary angioplasty (07/01/90) right eye surgery History of knee surgery History of tonsillectomy History of appendectomy History of back surgery Family History Mother Colon cancer Father Diabetes Brother Diabetes Social History Smoking Status: Former (more content not included)... Normal [facility] CBC W/Diff, Automatedon 05-18 Absolute Lymph 1.76 X10 3/uL Normal 0.83-4.51 [facility] Comment on above: Performed By: #### L 500.4050, L500.4100, L100.0100, L501.9985 #### [facility] [address] [place], [place], [id number] Absolute Neut 4.4 X10 3/uL Normal 2.0-7.7 [facility] Comment on above: Performed By: #### L 500.4050, L500.4100, L100.0100, L501.9985 #### [facility] [address] [place], [address] Basophils/100 WBC (Bld) 0.6 % Normal 0-1 [facility] Comment on above: Performed By: #### L 500.4050, L500.4100, L100.0100, L501.9985 #### [facility] [address], [address] Eosinophils/100 WBC (Bld) 1.8 % Normal 0-5 [facility] Comment on above: Performed By: #### L 500.4050, L500.4100, L100.0100, L501.9985 #### [facility] [address] [place], [address] Erythrocyte distribution width (RBC) [Ratio] 13.4 % Normal 11.6-14.6 [facility] Comment on above: Performed By: #### L 500.4050, L500.4100, L100.0100, L501.9985 #### [facility] [address] [place], [address] Hematocrit (Bld) [Volume fraction] 47.1 % Normal 40-54 [facility] Comment on above: Performed By: #### L 500.4050, L500.4100, L100.0100, L501.9985 #### [facility] [address] [place], [address] Hemoglobin (Bld) [Mass/Vol] 15.3 g/dL Normal 13.0-16.5 [facility] Comment on above: Performed By: #### L 500.4050, L500.4100, L100.0100, L501.9985 #### [facility] [address] [place], [address] IG% 0.400 Normal 0.0-0.9 [facility] Comment on above: Result Comment: IG% - Immature Granulocytes (promyelocytes, myelocytes and metamyelocytes) > 1% indicates that a LEFT SHIFT is Present. Performed By: #### L 500.4050, L500.4100, L100.0100, L501.9985 #### [facility] [address] [place], [address] Lymphocytes/100 WBC (Bld) 24.5 % Normal 19-41 [facility] Comment on above: Performed By: #### L 500.4050, L500.4100, L100.0100, L501.9985 #### [facility] [address] [place], [address] MCH (RBC) [Entitic mass] 31.7 pg Normal 27.0-32.0 [facility] Comment on above: Performed By: #### L 500.4050, L500.4100, L100.0100, L501.9985 #### [facility] [address] [place], [address] MCHC (RBC) [Mass/Vol] 32.5 g/dL Normal 32-36 [facility] Comment on above: Performed By: #### L 500.4050, L500.4100, L100.0100, L501.9985 #### [facility] [address] [place], [address] MCV (RBC) [Entitic vol] 97.5 fL High 80-94 [facility] Comment on above: Performed By: #### L 500.4050, L500.4100, L100.0100, L501.9985 #### [facility] [address] [place], [address] Monocytes/100 WBC (Bld) 11.8 % High 0-10 [facility] Comment on above: Performed By: #### L 500.4050, L500.4100, L100.0100, L501.9985 #### [facility] [address] [place], [address] Neutrophils/100 WBC (Bld) 60.9 % Normal 47-70 [facility] Comment on above: Performed By: #### L 500.4050, L500.4100, L100.0100, L501.9985 #### [facility] [address] [place], [address] Nucleated RBC (Bld) [#/Vol] 0 10*3/uL Normal 0-5 [facility] Comment on above: Performed By: #### L 500.4050, L500.4100, L100.0100, L501.9985 #### [facility] [address] [place], [address] Platelet mean volume (Bld) [Entitic vol] 12.1 fL High 6.2-12.0 [facility] Comment on above: Performed By: #### L 500.4050, L500.4100, L100.0100, L501.9985 #### [facility] [address] [place], [address] Platelets (Bld) [#/Vol] 176 10*3/uL Normal 150-450 [facility] Comment on above: Performed By: #### L 500.4050, L500.4100, L100.0100, L501.9985 #### [facility] [address] [place], [address] RBC (Bld) [#/Vol] 4.83 10*6/uL Normal 4.6-6.2 [facility] Comment on above: Performed By: #### L 500.4050, L500.4100, L100.0100, L501.9985 #### [facility] [address] [place], [address] RDW SD 48.4 fl High 35.1-43.9 [facility] Comment on above: Performed By: #### L 500.4050, L500.4100, L100.0100, L501.9985 #### [facility] [address] [place], [address] WBC (Bld) [#/Vol] 7.2 10*3/uL Normal 4.4-11.0 [facility] Comment on above: Performed By: #### L 500.4050, L500.4100, L100.0100, L501.9985 #### [facility] [address] [place], [address] Comprehensive Metabolic Prof ilon 06-02-2024 Albumin [Mass/Vol] 3.9 g/dL Normal 3.2-5.0 [facility] Comment on above: Performed By: #### L 500.4050, L500.4100, L100.0100, L501.9985 #### [facility] [address] [place], [address] Albumin/Globulin [Mass ratio] 1.1 {ratio} Normal 0.9-2.4 [facility] Comment on above: Performed By: #### L 500.4050, L500.4100, L100.0100, L501.9985 #### [facility] [address] [place], [address] ALK P 52 U/L Normal 45-117 [facility] Comment on above: Performed By: #### L 500.4050, L500.4100, L100.0100, L501.9985 #### [facility] [address] [place], [address] ALT [Catalytic activity/Vol] 33 U/L Normal 16-61 [facility] Comment on above: Performed By: #### L 500.4050, L500.4100, L100.0100, L501.9985 #### [facility] [address] [place], [address] AST [Catalytic activity/Vol] 27 U/L Normal 15-37 [facility] Comment on above: Performed By: #### L 500.4050, L500.4100, L100.0100, L501.9985 #### [facility] [address] [place], [address] Bilirubin [Mass/Vol] 0.70 mg/dL Normal 0.20-1.00 [facility] Comment on above: Result Comment: For patients on eltrombopag therapy, use of Dimension [place] TBIL is not recommended. Performed By: #### L 500.4050, L500.4100, L100.0100, L501.9985 #### [facility] [address] [place], [address] BUN/CRE 15.1 RATIO Normal 10-20 [facility] Comment on above: Performed By: #### L 500.4050, L500.4100, L100.0100, L501.9985 #### [facility] [address] [place], [address] CA,Total 9.5 mg/dL Normal 8.5-10.1 [facility] Comment on above: Performed By: #### L 500.4050, L500.4100, L100.0100, L501.9985 #### [facility] [address] [place], [address] Chloride [Moles/Vol] 104 mmol/L Normal 98-107 [facility] Comment on above: Performed By: #### L 500.4050, L500.4100, L100.0100, L501.9985 #### [facility] [address] [place], [address] CO2 [Moles/Vol] 26.0 mmol/L Normal 21.0-32.0 [facility] Comment on above: Performed By: #### L 500.4050, L500.4100, L100.0100, L501.9985 #### [facility] [address] [place], [address] Creatinine [Mass/Vol] 0.99 mg/dL Normal 0.70-1.30 [facility] Comment on above: Result Comment: The validity of the calculated GFR GFRAA in patients over 70 years has not been determined. Clinical correlation is essential. Performed By: #### L 500.4050, L500.4100, L100.0100, L501.9985 #### [facility] [address] [place], [address] EST GFR - AA 93 mL/min Normal >60 [facility] Comment on above: Result Comment: Afri can [place] GFR Calc Performed By: #### L 500.4050, L500.4100, L100.0100, L501.9985 #### [facility] [address] [place], [address] GAP 7 Normal 5-15 [facility] Comment on above: Performed By: #### L 500.4050, L500.4100, L100.0100, L501.9985 #### [facility] [address] [place], [address] GFR/1.73 sq M.predicted among non-blacks MDRD (S/P/Bld) [Vol rate/Area] 77 mL/min/{1.73_m2} Normal >60 [facility] Comment on above: Result Comment: Non- GFR Calc Performed By: #### L 500.4050, L500.4100, L100.0100, L501.9985 #### [facility] [address] [place], [address] Globulin (S) [Mass/Vol] 3.6 g/dL Normal 2.2-4.2 [facility] Comment on above: Performed By: #### L 500.4050, L500.4100, L100.0100, L501.9985 #### [facility] [address] [place], [address] Glucose [Mass/Vol] 143 mg/dL High 74-106 [facility] Comment on above: Result Comment: Fast ing Glucose result greater than or equal to 126 mg/dL suggests DIABETES MELLITUS per A.D.A. criteria. Performed By: #### L 500.4050, L500.4100, L100.0100, L501.9985 #### [facility] [address] [place], [address] Potassium [Moles/Vol] 4.9 mmol/L Normal 3.5-5.1 [facility] Comment on above: Performed By: #### L 500.4050, L500.4100, L100.0100, L501.9985 #### [facility] [address] [place], [address] Sodium [Moles/Vol] 137 mmol/L Normal 136-145 [facility] Comment on above: Performed By: #### L 500.4050, L500.4100, L100.0100, L501.9985 #### [facility] [address] [place], [address] T PROT 7.5 g/dL Normal 6.4-8.2 [facility] Comment on above: Performed By: #### L 500.4050, L500.4100, L100.0100, L501.9985 #### [facility] [address] [place], [address] Urea nitrogen [Mass/Vol] 15 mg/dL Normal 7-18 [facility] Comment on above: Performed By: #### L 500.4050, L500.4100, L100.0100, L501.9985 #### [facility] [address] [place], [address] Hemoglobin A1con 06-02-2024 HbA1c (Bld) [Mass fraction] 6.3 % High 3.8-5.6 [facility] Comment on above: Result Comment: Norm al < 5.7 % Prediabetic 5.7 - 6.4 % Diabetic >or= 6.5 % Please note range changes. Performed By: #### L 500.4050, L500.4100, L100.0100, L501.9985 #### [facility] [address] [place], [address] Lipid Profileon 06-02-2024 Cholesterol [Mass/Vol] 140 mg/dL Normal 200 [facility] Comment on above: Result Comment: <200 mg/dL Desirable 200-240 mg/dL Borderline >240 mg/dL High Risk Performed By: #### L 500.4050, L500.4100, L100.0100, L501.9985 #### [facility] [address] [place], [address] Cholesterol in HDL [Mass/Vol] 53 mg/dL Normal [facility] Comment on above: Result Comment: The drugs N-Acetylcysteine and Metamizole may falsely depress this assay. Reference Range HDL <40 mg/dL Low HDL Cholesterol HDL >or= 60 mg/dL High HDL Cholesterol Performed By: #### L 500.4050, L500.4100, L100.0100, L501.9985 #### [facility] [address] [place], [address] Cholesterol in LDL [Mass/Vol] 55 mg/dL Normal 0-130 [facility] Comment on above: Performed By: #### L 500.4050, L500.4100, L100.0100, L501.9985 #### [facility] [address] [place], [address] Cholesterol in VLDL [Mass/Vol] 32 mg/dL Normal 5-40 [facility] Comment on above: Performed By: #### L 500.4050, L500.4100, L100.0100, L501.9985 #### [facility] [address] [place], [address] Triglyceride [Mass/Vol] 162 mg/dL Normal [facility] Comment on above: Result Comment: The drugs N-Acetylcysteine and Metamizole may falsely depress this assay. Serum Triglycerides Reference Interval Normal <150 mg/dL Borderline high 150 - 199 mg/dL High 200 - 499 mg/dL Very High > or = 500 mg/dL Performed By: #### L 500.4050, L500.4100, L100.0100, L501.9985 #### [facility] [address] [place], [address] Internal Medicine Office Vis ito 04-17-2024 Internal Medicine Office Visit [facility] [address] [place] [address] [place] [address] OFFICE VISIT Date of Service: 04/17/24 MR#: [id number] Acct: [id number] Name: BRY POTTER Rep #: [id number] 90 : 1945 Provider: Dr. 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 Was referred to the [place] [facility] however he states that he went [...] diarrhea, nausea/dyspeps (more content not included)... Normal [facility] Absolute lymphocyte countOrd ered By: Ezequiel Yoo on 12-27-2023 Lymphocytes Auto (Unsp spec) [#/Vol] 1.83 10*3/uL 0.83-4.51 [facility] Activated partial thrombopla stin time (aPTT) in platelet poor plasma by coagulation aOrdered By: Ksenia Mota on 12-27-2023 aPTT Coag (PPP) [Time] 26.2 s 24.1-36.2 [facility] Automated lymphocyte count a s percentage of total leukocytesOrdered By: Ezequiel Yoo on 12-27-2023 Lymphocytes/100 WBC Auto (Unsp spec) 27.4 % 19-41 [facility] Basophil percentageOrdered B y: Ezequiel Yoo on 12-27-2023 Basophils/100 WBC (Bld) 0.7 % 0-1 [facility] Bilirubin [Mass/Vol] 0.70 mg/dL 0.20-1.00 [facility] Comment on above: For patients on eltr ombopag therapy, use of Dimension [place] TBIL is not recommended. Chloride [Moles/Vol] 105 mmol/L 98-107 [facility] Eosinophils/100 WBC (Bld) 2.8 % 0-5 [facility] Glucose [Mass/Vol] 148 mg/dL 74-106 [facility] Comment on above: Fasting Glucose resu lt greater than or equal to 126 mg/dL suggests DIABETES MELLITUS per A.D.A. criteria. Hemoglobin (Bld) [Mass/Vol] 15.4 g/dL 13.0-16.5 [facility] Monocytes/100 WBC (Bld) 11.7 % 0-10 [facility] Neutrophils (Bld) [#/Vol] 3.8 10*3/uL 2.0-7.7 [facility] Neutrophils/100 WBC (Bld) 57.0 % 47-70 [facility] Potassium [Moles/Vol] 4.4 mmol/L 3.5-5.1 [facility] Protein [Mass/Vol] 7.4 g/dL 6.4-8.2 [facility] Sodium [Moles/Vol] 138 mmol/L 136-145 [facility] WBC (Bld) [#/Vol] 6.7 10*3/uL 4.4-11.0 [facility] Determination of erythrocyte mean corpuscular volume (MCV)Ordered By: Ezequiel Yoo on 12-27-2023 MCV (RBC) [Entitic vol] 96.1 fL 80-94 [facility] Erythrocyte distribution wid th ratioOrdered By: Ezequiel Yoo on 12-27-2023 Erythrocyte distribution width (RBC) [Ratio] 13.5 % 11.6-14.6 [facility] Erythrocyte distribution wid th standard deviationOrdered By: Ezequiel Yoo on 12-27-2023 Erythrocyte distribution width (RBC) [Entitic vol] 48.1 fL 35.1-43.9 [facility] Hematocrit Auto (Bld) [Volum e fraction]Ordered By: Ezequiel Yoo on 12-27-2023 Hematocrit (Bld) [Volume fraction] 47.2 % 40-54 [facility] Immature granulocytes/100 WB C Auto (Bld)Ordered By: Ezequiel Yoo on 12-27-2023 Immature granulocytes/100 WBC (Bld) 0.400 % 0.0-0.9 [facility] Comment on above: IG% - Immature Granu locytes (promyelocytes, myelocytes and metamyelocytes) > 1% indicates that a LEFT SHIFT is Present. Laboratory - Chemistry and C hemistry - challengeOrdered By: Ezequiel Yoo on 12-27-2023 Albumin/Globulin [Mass ratio] 1.1 {ratio} 0.9-2.4 [facility] ALP [Catalytic activity/Vol] 47 U/L 45-117 [facility] ALT [Catalytic activity/Vol] 33 U/L 16-61 [facility] CO2 [Moles/Vol] 27.0 mmol/L 21.0-32.0 [facility] Cobalamin (Vitamin B12) [Mass/Vol] 388 pg/mL 211-911 [facility] Globulin (S) [Mass/Vol] 3.6 g/dL 2.2-4.2 [facility] Urea nitrogen/Creatinine [Mass ratio] 18.5 mg/mg 10-20 [facility] Laboratory - CoagulationOrde red By: Ksenia Mota on 12-27-2023 INR Coag (Bld) [Relative time] 1.0 {INR} [facility] PT Coag (PPP) [Time] 12.6 s 11.7-14.9 [facility] Laboratory - Hematology and Cell countsOrdered By: Ezequiel Yoo on 12-27-2023 MCH (RBC) [Entitic mass] 31.4 pg 27.0-32.0 [facility] MCHC (RBC) [Mass/Vol] 32.6 g/dL 32-36 [facility] Nucleated RBC/100 WBC (Bld) [Ratio] 0 % 0-5 [facility] Platelet mean volume (Bld) [Entitic vol] 11.6 fL 6.2-12.0 [facility] Platelets (Bld) [#/Vol] 201 10*3/uL 150-450 [facility] No Panel InformationOrdered By: Ezequiel Yoo on 12-27-2023 Estimated GFR (MDRD) Amer 85 mL/min >60 [facility] Comment on above: GFR Calc Estimated GFR (MDRD) Non-Af Amer 70 mL/min >60 [facility] Comment on above: Non- GFR Calc Prostate Specific Antigen Screen 1.54 ng/mL 0.00-4.00 [facility] Comment on above: This test was perfor med using the TPSA assay method for [employer] chemistry system. Values obtained with differentassay methods cannot be used interchangably.When changing PSA assays in the course of monitoring apatient, additional sequential testing should be carriedout to confirm baseline values. Urine Microalbumin/Creatinin e Ratio 7.4 mg/g CRE <30 [facility] RBC Auto (Bld) [#/Vol]Ordere d By: Ezequiel Yoo on 12-27-2023 RBC (Bld) [#/Vol] 4.91 10*6/uL 4.6-6.2 [facility] Serum or plasma calcium viktor urement (mass/volume)Ordered By: Ezequiel Yoo on 12-27-2023 Calcium [Mass/Vol] 9.2 mg/dL 8.5-10.1 [facility] Serum or plasma creatinine m easurement (mass/volume)Ordered By: Ezequiel Yoo on 12-27-2023 Creatinine [Mass/Vol] 1.08 mg/dL 0.70-1.30 [facility] Comment on above: The validity of the calculated GFR & GFRAA in patients over 70 years has not been determined. Clinical correlation is essential. Serum or plasma urea nitroge n measurement (mass/volume)Ordered By: Ezequiel Yoo on 12-27-2023 Urea nitrogen [Mass/Vol] 20 mg/dL 7-18 [facility] Thin prep Papanicolaou smear with manual screeningOrdered By: Ezequiel Yoo on 12-27-2023 Thin prep Papanicolaou smear with manual screening 3.8 g/dL 3.2-5.0 [facility] Thin prep Papanicolaou smear with manual screening 25 U/L 15-37 [facility] Thin prep Papanicolaou smear with manual screening 6 5-15 [facility] Thin prep Papanicolaou smear with manual screening 11.1 mg/L NO RANGE EST. [facility] Urine creatinine measurement (mass/volume)Ordered By: Ezequiel Yoo on 12-27-2023 Creatinine (U) [Mass/Vol] 149.00 mg/dL NO RANGE EST. [facility] Whole blood hemoglobin A1c/t otal hemoglobin ratio (mass fraction)Ordered By: Ezequiel Yoo on 12-27-2023 HbA1c (Bld) [Mass fraction] 6.7 % 3.8-5.6 [facility] Comment on above: Normal < 5.7 % Predi abetic 5.7 - 6.4 % Diabetic >or= 6.5 % Please note range changes. Basophil percentageOrdered B y: Dr. Yoo on 04-29-2023 Bilirubin [Mass/Vol] 0.50 mg/dL 0.20-1.00 [facility] Comment on above: For patients on eltr ombopag therapy, use of Dimension [place] TBIL is not recommended. Chloride [Moles/Vol] 105 mmol/L 98-107 [facility] Cholesterol [Mass/Vol] 130 mg/dL <200 [facility] Comment on above: <200 mg/dL Desirable 200-240 mg/dL Borderline >240 mg/dL High Risk Glucose [Mass/Vol] 108 mg/dL 74-106 [facility] Comment on above: Fasting Glucose resu lt from 100 to 125 mg/dL suggests IMPAIRED HOMEOSTASIS per A.D.A. criteria. Potassium [Moles/Vol] 4.7 mmol/L 3.5-5.1 [facility] Protein [Mass/Vol] 7.7 g/dL 6.4-8.2 [facility] Sodium [Moles/Vol] 138 mmol/L 136-145 [facility] Triglyceride [Mass/Vol] 71 mg/dL <199 [facility] Comment on above: The drugs N-Acetylcy steine and Metamizole may falsely depress this assay.Serum Triglycerides Reference Interval Normal <150 mg/dL Borderline high 150 - 199 mg/dL High 200 - 499 mg/dL Very High > or = 500 mg/dL Direct bilirubinOrdered By: Dr. Yoo on 04-29-2023 Bilirubin.direct [Mass/Vol] 0.17 mg/dL 0.00-0.30 [facility] Laboratory - Chemistry and C hemistry - challengeOrdered By: Dr. Yoo on 04-29-2023 ALP [Catalytic activity/Vol] 54 U/L 45-117 [facility] ALT [Catalytic activity/Vol] 32 U/L 16-61 [facility] CO2 [Moles/Vol] 29.0 mmol/L 21.0-32.0 [facility] Globulin (S) [Mass/Vol] 3.8 g/dL 2.2-4.2 [facility] Urea nitrogen/Creatinine [Mass ratio] 18.5 mg/mg 10-20 [facility] No Panel InformationOrdered By: Dr. Yoo on 04-29-2023 Estimated GFR (MDRD) Amer 102 mL/min >60 [facility] Comment on above: GFR Calc Estimated GFR (MDRD) Non-Af Amer 84 mL/min >60 [facility] Comment on above: Non- GFR Calc Serum or plasma albumin viktor urement (mass/volume)Ordered By: Dr. Yoo on 04-29-2023 Albumin [Mass/Vol] 3.9 g/dL 3.2-5.0 [facility] Serum or plasma calcium viktor urement (mass/volume)Ordered By: Dr. Yoo on 04-29-2023 Calcium [Mass/Vol] 9.7 mg/dL 8.5-10.1 [facility] Serum or plasma cholesterol in HDL measurement (mass/volume)Ordered By: Dr. Yoo on 04-29-2023 Cholesterol in HDL [Mass/Vol] 55 mg/dL >40 [facility] Comment on above: The drugs N-Acetylcy steine and Metamizole may falsely depress this assay. Reference Range HDL <40 mg/dL Low HDL Cholesterol HDL >or= 60 mg/dL High HDL Cholesterol Serum or plasma cholesterol in VLDL measurement (mass/volume)Ordered By: Dr. Yoo on 04-29-2023 Cholesterol in VLDL [Mass/Vol] 14 mg/dL 5-40 [facility] Serum or plasma creatinine m easurement (mass/volume)Ordered By: Dr. Yoo on 04-29-2023 Creatinine [Mass/Vol] 0.92 mg/dL 0.70-1.30 [facility] Comment on above: The validity of the calculated GFR & GFRAA in patients over 70 years has not been determined. Clinical correlation is essential. Serum or plasma low density lipoprotein (LDL) cholesterol measurement (mass/volume)Ordered By: Dr. Yoo on 04-29-2023 Cholesterol in LDL [Mass/Vol] 61 mg/dL 0-130 [facility] Serum or plasma urea nitroge n measurement (mass/volume)Ordered By: Dr. Yoo on 04-29-2023 Urea nitrogen [Mass/Vol] 17 mg/dL 7-18 [facility] Thin prep Papanicolaou smear with manual screeningOrdered By: Dr. Yoo on 04-29-2023 Thin prep Papanicolaou smear with manual screening 25 U/L 15-37 [facility] Thin prep Papanicolaou smear with manual screening 4 5-15 [facility] Whole blood hemoglobin A1c/t otal hemoglobin ratio (mass fraction)Ordered By: Dr. Yoo on 04-29-2023 HbA1c (Bld) [Mass fraction] 6.6 % 3.8-5.6 [facility] Comment on above: Normal < 5.7 % Predi abetic 5.7 - 6.4 % Diabetic >or= 6.5 % Please note range changes. Basophil percentageOrdered B y: Dr. Yoo on 01-18-2023 Bilirubin [Mass/Vol] 0.60 mg/dL 0.20-1.00 [facility] Comment on above: For patients on eltr ombopag therapy, use of Dimension [place] TBIL is not recommended. Chloride [Moles/Vol] 102 mmol/L 98-107 [facility] Glucose [Mass/Vol] 179 mg/dL 74-106 [facility] Comment on above: Fasting Glucose resu lt greater than or equal to 126 mg/dL suggests DIABETES MELLITUS per A.D.A. criteria. Potassium [Moles/Vol] 4.6 mmol/L 3.5-5.1 [facility] Protein [Mass/Vol] 7.6 g/dL 6.4-8.2 [facility] Sodium [Moles/Vol] 139 mmol/L 136-145 [facility] Laboratory - Chemistry and C hemistry - challengeOrdered By: Dr. Yoo on 01-18-2023 ALP [Catalytic activity/Vol] 61 U/L 45-117 [facility] ALT [Catalytic activity/Vol] 43 U/L 16-61 [facility] CO2 [Moles/Vol] 29.0 mmol/L 21.0-32.0 [facility] Globulin (S) [Mass/Vol] 3.7 g/dL 2.2-4.2 [facility] Urea nitrogen/Creatinine [Mass ratio] 16.0 mg/mg 10-20 [facility] No Panel InformationOrdered By: Dr. Yoo on 01-18-2023 Estimated GFR (MDRD) Amer 93 mL/min >60 [facility] Comment on above: GFR Calc Estimated GFR (MDRD) Non-Af Amer 77 mL/min >60 [facility] Comment on above: Non- GFR Calc Urine Microalbumin/Creatinin e Ratio 10.8 mg/g CRE <30 [facility] Serum or plasma albumin viktor urement (mass/volume)Ordered By: Dr. Yoo on 01-18-2023 Albumin [Mass/Vol] 3.9 g/dL 3.2-5.0 [facility] Serum or plasma albumin/glob ulin mass ratioOrdered By: Dr. Yoo on 01-18-2023 Albumin/Globulin [Mass ratio] 1.1 {ratio} 0.9-2.4 [facility] Serum or plasma calcium viktor urement (mass/volume)Ordered By: Dr. Yoo on 01-18-2023 Calcium [Mass/Vol] 9.4 mg/dL 8.5-10.1 [facility] Serum or plasma creatinine m easurement (mass/volume)Ordered By: Dr. Yoo on 01-18-2023 Creatinine [Mass/Vol] 1.00 mg/dL 0.70-1.30 [facility] Comment on above: The validity of the calculated GFR & GFRAA in patients over 70 years has not been determined. Clinical correlation is essential. Serum or plasma urea nitroge n measurement (mass/volume)Ordered By: Dr. Yoo on 01-18-2023 Urea nitrogen [Mass/Vol] 16 mg/dL 7-18 [facility] Thin prep Papanicolaou smear with manual screeningOrdered By: Dr. Yoo on 01-18-2023 Thin prep Papanicolaou smear with manual screening 35 U/L 15-37 [facility] Thin prep Papanicolaou smear with manual screening 8 5-15 [facility] Thin prep Papanicolaou smear with manual screening 6.4 mg/L NO RANGE EST. [facility] Urine creatinine measurement (mass/volume)Ordered By: Dr. Yoo on 01-18-2023 Creatinine (U) [Mass/Vol] 59.10 mg/dL NO RANGE EST. [facility] Whole blood hemoglobin A1c/t otal hemoglobin ratio (mass fraction)Ordered By: Dr. Yoo on 01-18-2023 HbA1c (Bld) [Mass fraction] 8.3 % 3.8-5.6 [facility] Comment on above: Normal < 5.7 % Predi abetic 5.7 - 6.4 % Diabetic >or= 6.5 % Please note range changes. Basophil percentageon 2021 Chloride [Moles/Vol] 99 mmol/L 98-107 [facility] Work Phone: Glucose [Mass/Vol] 260 mg/dL 74-106 [facility] Work Phone: Comment on above: Glucose result great er than or equal to 200 mg/dLsuggests DIABETES MELLITUS per A.D.A. criteria. Potassium [Moles/Vol] 5.1 mmol/L 3.5-5.1 [facility] Work Phone: Sodium [Moles/Vol] 135 mmol/L 136-145 [facility] Work Phone: Laboratory - Chemistry and C hemistry - challengeon 06-11-2022 CO2 [Moles/Vol] 31.0 mmol/L 21.0-32.0 [facility] Work Phone: Urea nitrogen/Creatinine [Mass ratio] 23.3 mg/mg 10-20 [facility] Work Phone: No Panel Informationon 06-11 Estimated GFR (MDRD) Amer 75 mL/min >60 [facility] Work Phone: Comment on above: GFR Calc Estimated GFR (MDRD) Non-Af Amer 62 mL/min >60 [facility] Work Phone: Comment on above: Non- GFR Calc Serum or plasma calcium viktor urement (mass/volume)on 06-11-2022 Calcium [Mass/Vol] 9.6 mg/dL 8.5-10.1 [facility] Work Phone: Serum or plasma creatinine m easurement (mass/volume)on 06-11-2022 Creatinine [Mass/Vol] 1.20 mg/dL 0.70-1.30 [facility] Work Phone: Comment on above: The validity of the calculated GFR & GFRAA in patients over 70 years has not been determined. Clinical correlation is essential. Serum or plasma urea nitroge n measurement (mass/volume)on 06-11-2022 Urea nitrogen [Mass/Vol] 28 mg/dL 7-18 [facility] Work Phone: Thin prep Papanicolaou smear with manual screeningon 06-11-2022 Thin prep Papanicolaou smear with manual screening 5 5-15 [facility] Work Phone: Glucose Glucometer (BldC) [M ass/Vol]on 06-06-2022 Glucose [Mass/Vol] 203 mg/dL 74-106 [facility] Work Phone: Comment on above: MANAGEMENT OF PATIEN T CARE PER NURSING PROTOCOL Laboratory - Chemistry and C hemistry - challengeon 06-06-2022 ALP [Catalytic activity/Vol] 59 U/L 45-117 [facility] Work Phone: Absolute lymphocyte counton 06-05-2022 Lymphocytes Auto (Unsp spec) [#/Vol] 1.25 10*3/uL 0.83-4.51 [facility] Work Phone: Basophil percentageon 2021 Basophils/100 WBC (Bld) 0.5 % 0-1 [facility] Work Phone: Bilirubin [Mass/Vol] 0.50 mg/dL 0.20-1.00 [facility] Work Phone: Comment on above: For patients on eltr ombopag therapy, use of Dimension [place] TBIL is not recommended. Chloride [Moles/Vol] 103 mmol/L 98-107 [facility] Work Phone: Eosinophils/100 WBC (Bld) 0.6 % 0-5 [facility] Work Phone: Glucose [Mass/Vol] 158 mg/dL 74-106 [facility] Work Phone: Comment on above: Fasting Glucose resu lt greater than or equal to 126 mg/dL suggests DIABETES MELLITUS per A.D.A. criteria. Neutrophils (Bld) [#/Vol] 5.6 10*3/uL 2.0-7.7 [facility] Work Phone: Neutrophils/100 WBC (Bld) 65.5 % 47-70 [facility] Work Phone: Potassium [Moles/Vol] 4.2 mmol/L 3.5-5.1 [facility] Work Phone: Protein [Mass/Vol] 7.8 g/dL 6.4-8.2 [facility] Work Phone: Sodium [Moles/Vol] 137 mmol/L 136-145 [facility] Work Phone: WBC (Bld) [#/Vol] 8.5 10*3/uL 4.4-11.0 [facility] Work Phone: Blood erythrocytes count (nu mber/volume)on 06-05-2022 RBC (Bld) [#/Vol] 4.73 10*6/uL 4.6-6.2 [facility] Work Phone: Blood hemoglobin measurement (mass/volume)on 06-05-2022 Hemoglobin (Bld) [Mass/Vol] 15.2 g/dL 13.0-16.5 [facility] Work Phone: Blood lymphocytes/100 leukoc yteson 06-05-2022 Lymphocytes/100 WBC (Bld) 14.7 % 19-41 [facility] Work Phone: Blood manual differential co mment interpretation (narrative result)on 06-05-2022 Manual differential comment Marcial (Bld) [Interp] SEE COMMENT [facility] Work Phone: Comment on above: MONOCYTOSIS NOTED Blood monocytes/100 leukocyt eson 06-05-2022 Monocytes/100 WBC (Bld) 18.3 % 0-10 [facility] Work Phone: Blood platelet adequacy dete ction by light microscopyon 06-05-2022 Platelets LM Ql (Bld) ADEQUATE ADEQ [facility] Work Phone: Blood platelet mean volumeon 06-05-2022 Platelet mean volume (Bld) [Entitic vol] 11.5 fL 6.2-12.0 [facility] Work Phone: Determination of erythrocyte mean corpuscular volume (MCV)on 06-05-2022 MCV (RBC) [Entitic vol] 96.8 fL 80-94 [facility] Work Phone: Hematocrit Auto (Bld) [Volum e fraction]on 06-05-2022 Hematocrit (Bld) [Volume fraction] 45.8 % 40-54 [facility] Work Phone: Laboratory - Chemistry and C hemistry - challengeon 06-05-2022 ALP [Catalytic activity/Vol] 57 U/L 45-117 [facility] Work Phone: ALT [Catalytic activity/Vol] 45 U/L 16-61 [facility] Work Phone: CO2 [Moles/Vol] 27.0 mmol/L 21.0-32.0 [facility] Work Phone: Globulin (S) [Mass/Vol] 4.1 g/dL 2.2-4.2 [facility] Work Phone: [phone] Urea nitrogen/Creatinine [Mass ratio] 14.0 mg/mg 10-20 [facility] Work Phone: Laboratory - Hematology and Cell countson 06-05-2022 Anisocytosis Ql (Bld) RARE [facility] Work Phone: [phone] Erythrocyte distribution width (RBC) [Entitic vol] 48.1 fL 35.1-43.9 [facility] Work Phone: [phone] Erythrocyte distribution width (RBC) [Ratio] 13.3 % 11.6-14.6 [facility] Work Phone: [phone] Immature granulocytes/100 WBC (Bld) 0.400 % 0.0-0.9 [facility] Work Phone: Comment on above: IG% - Immature Granu locytes (promyelocytes, myelocytes and metamyelocytes) > 1% indicates that a LEFT SHIFT is Present. MCH (RBC) [Entitic mass] 32.1 pg 27.0-32.0 [facility] Work Phone: Nucleated RBC/100 WBC (Bld) [Ratio] 0 % 0-5 [facility] Work Phone: MCHC Auto (RBC) [Mass/Vol]on 06-05-2022 MCHC (RBC) [Mass/Vol] 33.2 g/dL 32-36 [facility] Work Phone: Macrocytes detectionon 06-05 Macrocytes Ql (Bld) RARE [facility] Work Phone: No Panel Informationon 06-05 D-Dimer Quantitative (PE/DVT) 1.13 FEU/ug/m 0.27-0.49 [facility] Work Phone: Comment on above: CRITICAL VALUE VERIF IED. CALLED TO MICHELE HARDY RN [id number] Damian Plummer.RESULTS READ BACK BY . D-Dimer ELEVATED (>0.49): Additional studies and clinicalassessments are indicated to conclude diagnosis of:Deep Vein Thrombosis (DVT) or Pulmonary Embolism (PE) Estimated Creatinine Clearance Calc 54.94 ml/min [facility] Work Phone: [phone] Estimated GFR (MDRD) Amer 93 mL/min >60 [facility] Work Phone: [phone] Comment on above: GFR Calc Estimated GFR (MDRD) Non-Af Amer 77 mL/min >60 [facility] Work Phone: [phone] Comment on above: Non- GFR Calc Troponin I High Sensitivity 6 pg/mL 3.0-78.0 [facility] Work Phone: Comment on above: Please Note: New [place] t Units and Gender Specific Reference Ranges. For more information see Policy Stat Procedure [place] High Sensitivity Troponin (TNIH) and attachments. Platelets bldon 06-05-2022 Platelets (Bld) [#/Vol] 160 10*3/uL 150-450 [facility] Work Phone: [phone] RBC morphologyon 06-05-2022 RBC morphology finding Nom (Bld) N CHROM NORMAL NORM C&C [facility] Work Phone: [phone] Serum or plasma albumin viktor urement (mass/volume)on 06-05-2022 Albumin [Mass/Vol] 3.7 g/dL 3.2-5.0 [facility] Work Phone: [phone] Serum or plasma albumin/glob ulin mass ratioon 06-05-2022 Albumin/Globulin [Mass ratio] 0.9 {ratio} 0.9-2.4 [facility] Work Phone: [phone] Serum or plasma calcium viktor urement (mass/volume)on 06-05-2022 Calcium [Mass/Vol] 9.2 mg/dL 8.5-10.1 [facility] Work Phone: [phone] Serum or plasma creatinine m easurement (mass/volume)on 06-05-2022 Creatinine [Mass/Vol] 1.00 mg/dL 0.70-1.30 [facility] Work Phone: Comment on above: The validity of the calculated GFR & GFRAA in patients over 70 years has not been determined. Clinical correlation is essential. Serum or plasma urea nitroge n measurement (mass/volume)on 06-05-2022 Urea nitrogen [Mass/Vol] 14 mg/dL 7-18 [facility] Work Phone: Serum procalcitonin measurem enton 06-05-2022 Procalcitonin [Mass/Vol] 0.07 ng/mL 0.00-0.09 [facility] Work Phone: Comment on above: A [...] smear with manual screening 31 U/L 15-37 [facility] Work Phone: [phone] Thin prep Papanicolaou smear with manual screening 7 5-15 [facility] Work Phone: [phone] Absolute lymphocyte counton 05-30-2022 Lymphocytes Auto (Unsp spec) [#/Vol] 1.59 10*3/uL 0.83-4.51 [facility] Work Phone: [phone] Basophil percentageon 2021 Basophils/100 WBC (Bld) 0.9 % 0-1 [facility] Work Phone: [phone] Bilirubin [Mass/Vol] 0.50 mg/dL 0.20-1.00 [facility] Work Phone: Comment on above: For patients on eltr ombopag therapy, use of Dimension [place] TBIL is not recommended. Chloride [Moles/Vol] 103 mmol/L 98-107 [facility] Work Phone: Cholesterol [Mass/Vol] 144 mg/dL <200 [facility] Work Phone: Comment on above: <200 mg/dL Desirable 200-240 mg/dL Borderline >240 mg/dL High Risk Eosinophils/100 WBC (Bld) 2.3 % 0-5 [facility] Work Phone: [phone] Glucose [Mass/Vol] 208 mg/dL 74-106 [facility] Work Phone: Comment on above: Glucose result great er than or equal to 200 mg/dLsuggests DIABETES MELLITUS per A.D.A. criteria. Neutrophils (Bld) [#/Vol] 3.1 10*3/uL 2.0-7.7 [facility] Work Phone: Neutrophils/100 WBC (Bld) 54.5 % 47-70 [facility] Work Phone: Potassium [Moles/Vol] 4.9 mmol/L 3.5-5.1 [facility] Work Phone: Protein [Mass/Vol] 7.4 g/dL 6.4-8.2 [facility] Work Phone: Sodium [Moles/Vol] 137 mmol/L 136-145 [facility] Work Phone: Triglyceride [Mass/Vol] 179 mg/dL <199 [facility] Work Phone: Comment on above: The drugs N-Acetylcy steine and Metamizole may falsely depress this assay.Serum Triglycerides Reference Interval Normal <150 mg/dL Borderline high 150 - 199 mg/dL High 200 - 499 mg/dL Very High > or = 500 mg/dL WBC (Bld) [#/Vol] 5.6 10*3/uL 4.4-11.0 [facility] Work Phone: Blood erythrocytes count (nu mber/volume)on 05-30-2022 RBC (Bld) [#/Vol] 4.53 10*6/uL 4.6-6.2 [facility] Work Phone: Blood hemoglobin measurement (mass/volume)on 05-30-2022 Hemoglobin (Bld) [Mass/Vol] 14.6 g/dL 13.0-16.5 [facility] Work Phone: Blood lymphocytes/100 leukoc yteson 05-30-2022 Lymphocytes/100 WBC (Bld) 28.2 % 19-41 [facility] Work Phone: [phone] Blood monocytes/100 leukocyt eson 05-30-2022 Monocytes/100 WBC (Bld) 13.7 % 0-10 [facility] Work Phone: Blood platelet mean volumeon 05-30-2022 Platelet mean volume (Bld) [Entitic vol] 11.7 fL 6.2-12.0 [facility] Work Phone: Determination of erythrocyte mean corpuscular volume (MCV)on 05-30-2022 MCV (RBC) [Entitic vol] 97.8 fL 80-94 [facility] Work Phone: Direct bilirubinon Bilirubin.direct [Mass/Vol] 0.12 mg/dL 0.00-0.30 [facility] Work Phone: Hematocrit Auto (Bld) [Volum e fraction]on 05-30-2022 Hematocrit (Bld) [Volume fraction] 44.3 % 40-54 [facility] Work Phone: Laboratory - Chemistry and C hemistry - challengeon 05-30-2022 ALP [Catalytic activity/Vol] 53 U/L 45-117 [facility] Work Phone: ALT [Catalytic activity/Vol] 41 U/L 16-61 [facility] Work Phone: [phone] CO2 [Moles/Vol] 29.0 mmol/L 21.0-32.0 [facility] Work Phone: [phone] Globulin (S) [Mass/Vol] 3.6 g/dL 2.2-4.2 [facility] Work Phone: [phone] Urea nitrogen/Creatinine [Mass ratio] 17.2 mg/mg 10-20 [facility] Work Phone: [phone] Laboratory - Hematology and Cell countson 05-30-2022 Erythrocyte distribution width (RBC) [Entitic vol] 47.5 fL 35.1-43.9 [facility] Work Phone: [phone] Erythrocyte distribution width (RBC) [Ratio] 13.2 % 11.6-14.6 [facility] Work Phone: [phone] Immature granulocytes/100 WBC (Bld) 0.400 % 0.0-0.9 [facility] Work Phone: [phone] Comment on above: IG% - Immature Granu locytes (promyelocytes, myelocytes and metamyelocytes) > 1% indicates that a LEFT SHIFT is Present. MCH (RBC) [Entitic mass] 32.2 pg 27.0-32.0 [facility] Work Phone: [phone] Nucleated RBC/100 WBC (Bld) [Ratio] 0 % 0-5 [facility] Work Phone: [phone] HbA1c (Bld) [Mass fraction] 7.2 % 4.2-6.3 [facility] Work Phone: [phone] MCHC Auto (RBC) [Mass/Vol]on 05-30-2022 MCHC (RBC) [Mass/Vol] 33.0 g/dL 32-36 [facility] Work Phone: No Panel Informationon 05-30 Estimated GFR (MDRD) Amer 94 mL/min >60 [facility] Work Phone: [phone] Comment on above: GFR Calc Estimated GFR (MDRD) Non-Af Amer 78 mL/min >60 [facility] Work Phone: [phone] Comment on above: Non- GFR Calc Platelets bldon 05-30-2022 Platelets (Bld) [#/Vol] 169 10*3/uL 150-450 [facility] Work Phone: Serum or plasma albumin viktor urement (mass/volume)on 05-30-2022 Albumin [Mass/Vol] 3.8 g/dL 3.2-5.0 [facility] Work Phone: Serum or plasma calcium viktor urement (mass/volume)on 05-30-2022 Calcium [Mass/Vol] 9.3 mg/dL 8.5-10.1 [facility] Work Phone: Serum or plasma cholesterol in HDL measurement (mass/volume)on 05-30-2022 Cholesterol in HDL [Mass/Vol] 44 mg/dL >40 [facility] Work Phone: Comment on above: The drugs N-Acetylcy steine and Metamizole may falsely depress this assay. Reference Range HDL <40 mg/dL Low HDL Cholesterol HDL >or= 60 mg/dL High HDL Cholesterol Serum or plasma cholesterol in VLDL measurement (mass/volume)on 05-30-2022 Cholesterol in VLDL [Mass/Vol] 36 mg/dL 5-40 [facility] Work Phone: Serum or plasma creatinine m easurement (mass/volume)on 05-30-2022 Creatinine [Mass/Vol] 0.99 mg/dL 0.70-1.30 [facility] Work Phone: Comment on above: The validity of the calculated GFR & GFRAA in patients over 70 years has not been determined. Clinical correlation is essential. Serum or plasma low density lipoprotein (LDL) cholesterol measurement (mass/volume)on 05-30-2022 Cholesterol in LDL [Mass/Vol] 64 mg/dL 0-130 [facility] Work Phone: Serum or plasma urea nitroge n measurement (mass/volume)on 05-30-2022 Urea nitrogen [Mass/Vol] 17 mg/dL 7-18 [facility] Work Phone: Thin prep Papanicolaou smear with manual screeningon 05-30-2022 Thin prep Papanicolaou smear with manual screening 38 U/L 15-37 [facility] Work Phone: Thin prep Papanicolaou smear with manual screening 5 5-15 [facility] Work Phone: Office Visiton 10-01-2017 Documentation of current medications (procedure) Done Invalid Interpretation Code [facility] Work Phone: [phone] Fall risk assessment No Invalid Interpretation Code [facility] Work Phone: [phone] Clinical Lists Update: Pre health service coordinator 09-30-2017 Left ventricular Ejection fraction 50 % Invalid Interpretation Code [facility] Work Phone: [phone] Clinical Lists Update: [facility] health service coordinator 04-05-2017 Alanine aminotransferase (ALT) 29 U/L Invalid Interpretation Code [facility] Work Phone: [phone] Albumin 4.1 g/dL Invalid Interpretation Code [facility] Work Phone: [phone] Alkaline phosphatase (ALP) 49 U/L Invalid Interpretation Code [facility] Work Phone: [phone] Aspartate aminotransferase (AST) 44 U/L High [facility] Work Phone: [phone] Bilirubin (total) 0.5 mg/dL Invalid Interpretation Code [facility] Work Phone: [phone] BUN/Creatinine Ratio 20 mg/mg Invalid Interpretation Code [facility] Work Phone: [phone] Calcium 9.0 mg/dL Invalid Interpretation Code [facility] Work Phone: [phone] Chloride 101 mmol/L Invalid Interpretation Code [facility] Work Phone: [phone] Cholesterol 139 mg/dL Invalid Interpretation Code [facility] Work Phone: [phone] CO2 21 mmol/L Invalid Interpretation Code [facility] Work Phone: [phone] Creatinine 1.01 mg/dL Invalid Interpretation Code [facility] Work Phone: [phone] Erythrocytes (RBC) 4.51 10*6/uL Invalid Interpretation Code [facility] Work Phone: [phone] Globulin 2.8 g/dL Invalid Interpretation Code [facility] Work Phone: [phone] Glucose 126 mg/dL High [facility] Work Phone: [phone] Glucose mass conc 126 mg/dL High [facility] Work Phone: [phone] HDL Cholesterol 55 mg/dL Invalid Interpretation Code [facility] Work Phone: [phone] Hematocrit (HCT) 42.8 % Invalid Interpretation Code [facility] Work Phone: [phone] Hemoglobin (HGB) 14.5 g/dL Invalid Interpretation Code [facility] Work Phone: [phone] LDL Cholesterol 69 mg/dL Invalid Interpretation Code [facility] Work Phone: [phone] LDL/HDL ratio, serum 1.3 Invalid Interpretation Code [facility] Work Phone: [phone] MCH 32.2 pg Invalid Interpretation Code [facility] Work Phone: [phone] MCHC 33.9 g/dL Invalid Interpretation Code [facility] Work Phone: [phone] MCV 95 fL Invalid Interpretation Code [facility] Work Phone: [phone] Platelets 185 10*3/mm3 Invalid Interpretation Code [facility] Work Phone: [phone] Potassium 4.5 mmol/L Invalid Interpretation Code [facility] Work Phone: [phone] Protein 6.9 g/dL Invalid Interpretation Code [facility] Work Phone: [phone] RDW-CA 14.4 % Invalid Interpretation Code [facility] Work Phone: [phone] Sodium 138 mmol/L Invalid Interpretation Code [facility] Work Phone: [phone] Triglyceride 74 mg/dL Invalid Interpretation Code [facility] Work Phone: [phone] Urea nitrogen 20 mg/dL Invalid Interpretation Code [facility] Work Phone: [phone] very low density lipoproteins 15 mg/dL Invalid Interpretation Code [facility] Work Phone: [phone] WBC (Leukocytes) 6.4 10*3/uL Invalid Interpretation Code [facility] Work Phone: [phone] Lab Report: Basic Metabolic Profile (BMP)on 01-11-2017 Anion gap 9 mmol/L Invalid Interpretation Code 5-15 [facility] Work Phone: eGFR (non-black) 101 mL/min/{1.73_m2} Invalid Interpretation Code >60 [facility] Work Phone: [phone] eGFR (non-black) 83 mL/min/{1.73_m2} Invalid Interpretation Code >60 [facility] Work Phone: [phone] Lab Report: CBC W/Diff, Auto matedon 01-11-2017 RDW SD 46.7 fL High 35.1-43.9 [facility] Work Phone: [phone] red blood cell distribution width, size density 46.7 fL High 35.1-43.9 [facility] Work Phone: [phone] Absolute Neut 4.2 X10 3/UL Invalid Interpretation Code 2.0-7.7 [facility] Work Phone: [phone] Basophils/100 leukocytes 0.7 % Invalid Interpretation Code 0-1 [facility] Phone: [phone] Eosinophils/100 leukocytes 3.5 % Invalid Interpretation Code 0-5 [facility] Work Phone: [phone] immature granulocytes, percentage of total cells, blood 0.100 % Invalid Interpretation Code 0.0-0.9 [facility] Work Phone: [phone] Immature granulocytes/100 WBC (Bld) 0.100 % Invalid Interpretation Code 0.0-0.9 [facility] Phone: [phone] Lymphocytes 1.75 X10 3/UL Invalid Interpretation Code 0.83-4.51 [facility] Work Phone: [phone] Lymphocytes/100 leukocytes 25.7 % Invalid Interpretation Code 19-41 [facility] Work Phone: [phone] Monocytes/100 leukocytes 8.8 % Invalid Interpretation Code 0-10 [facility] Phone: [phone] neutrophil count, blood 4.2 X10 3/UL Invalid Interpretation Code 2.0-7.7 [facility] Phone: [phone] Neutrophils/100 leukocytes 61.2 % Invalid Interpretation Code 47-70 [facility] Work Phone: [phone] PMV by Crista 12.0 fL Invalid Interpretation Code 6.2-12.0 [facility] Work Phone: [phone] Lab Report: Magnesiumon 12-20 Magnesium 2.2 mg/dL Invalid Interpretation Code 1.8-2.4 [facility] Work Phone: [phone] Lab Report: T4 Total, Thyrox inon 01-11-2017 Thyroxine (T4) 6.3 ug/dL Invalid Interpretation Code 4.5-12.1 [facility] Work Phone: [phone] Lab Report: Thyroid Stim Hor marques (TSH)on 01-11-2017 Thyroid stimulating hormone (TSH) 1.99 u[iU]/mL Invalid Interpretation Code 0.358-3.74 [facility] Work Phone: [phone] Office Visit: Luis 01-11-20 17 Documentation of current medications (procedure) Done Invalid Interpretation Code [facility] Phone: [phone] Replaced Document: Zaidamark E CG Observationson 01-11-2017 EKG QRS axis 2 deg Invalid Interpretation Code [facility] Work Phone: [phone] electrocardiogram interpretation 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 ABNORMAL Invalid Interpretation Code [facility] Work Phone: [phone] P [place] 36 deg Invalid Interpretation Code [facility] Work Phone: [phone] P wave axis, electrocardiogram 36 deg Invalid Interpretation Code [facility] Work Phone: [phone] ME Interval 178 ms Invalid Interpretation Code [facility] Work Phone: [phone] ME interval, electrocardiogram 178 ms Invalid Interpretation Code [facility] Work Phone: [phone] Pulse (Heart Rate) 64 /min Invalid Interpretation Code [facility] Phone: [phone] QRS axis, electrocardiogram 2 deg Invalid Interpretation Code [facility] Work Phone: [phone] QRS Duration 94 ms Invalid Interpretation Code [facility] Work Phone: [phone] QRS duration, electrocardiogram 94 ms Invalid Interpretation Code [facility] Work Phone: [phone] QT Interval new path ms Invalid Interpretation Code [facility] Work Phone: [phone] QT interval, electrocardiogram new path ms Invalid Interpretation Code [facility] Work Phone: [phone] QTc Turner 419 ms Invalid Interpretation Code [facility] Work Phone: [phone] T [place] 15 deg Invalid Interpretation Code [facility] Work Phone: [phone] T wave axis, electrocardiogram 15 deg Invalid Interpretation Code [facility] Work Phone: [phone] Office Visiton 09-28-2016 Dietary management education, guidance, and counseling (procedure) yes Invalid Interpretation Code [facility] Work Phone: [phone] Tobacco use CPHS Former smoker Invalid Interpretation Code [facility] Work Phone: [phone] Clinical Lists Update: Prelo health service coordinator 09-21-2016 Left ventricular Ejection fraction 50 % Invalid Interpretation Code [facility] Work Phone: [phone] Office Visit: [facility] 11-22-19 15 Alcoholism counseling (procedure) no Invalid Interpretation Code [facility] Work Phone: [phone] cardiac risk group C Invalid Interpretation Code [facility] Work Phone: [phone] General cardiovascular disease 10Y risk [#] [place].Carley'Radha N/A Invalid Interpretation Code [facility] Work Phone: [phone] Tobacco smoking status NHIS Never Invalid Interpretation Code [facility] Work Phone: [phone] Lab Report: PTon 07-20-2014 INR Coag RelTime (PPP) 1.0 {INR} Normal [facility] Work Phone: [phone] INR in blood by coagulation 1.0 {INR} Normal [facility] Work Phone: [phone] prothrombin time, actual/normal, ratio 13.1 SECONDS Normal 11.7-14.9 [facility] Work Phone: [phone] PTP 13.1 SECONDS Normal 11.7-14.9 [facility] Work Phone: [phone] Lab Report: Ordered by Dr. Gayatri rubi 03-30-2014 [facility] 33.8 % Invalid Interpretation Code [facility] Work Phone: [phone] Albumin/Globulin Ratio 1.7 {ratio} Invalid Interpretation Code [facility] Work Phone: [phone] Lab Report: LIVERon 03-10-20 13 Bilirubin (direct) 0.08 mg/dL Normal 0.00-0.30 [facility] Work Phone: [phone] Replaced Document: Herson Vickon 09-15-2012 Pulse (Heart Rate) 414 ms Invalid Interpretation Code [facility] Work Phone: [phone] Laboratory - Microbiology an d Antimicrobial susceptibility Bacteria identified Cx Nom (Bld) No growth. [facility] Work Phone: [phone] Bacteria identified Cx Nom (Bld) No growth in 5 days. [facility] Work Phone: SARS-CoV-2 (COVID-19) Ag IA. rapid Ql (Resp) SARS-CoV-2 Antigen (Rapid) SARS-CoV-2 (COVID 19) [facility] Work Phone: Vital Signs Date Time Vital Sign Value Performing Clinician Faci anny 05-19-2025 10:41-0400 Body height 167.[address] Ezequiel Yoo MD Work Phone: [facility] 05-19-2025 10:41-0400 Body mass index (BMI) [Ratio] 30.4 kg/m2 Dr. Ezequiel Yoo MD Work Phone: [facility] 05-19-2025 10:41-0400 Body temperature 97.2 [degF] Dr. Ezequiel Yoo MD Work Phone: [facility] 05-19-2025 10:41-0400 Body weight 85.[address] Ezequiel Yoo MD Work Phone: [facility] 05-19-2025 10:41-0400 Diastolic blood pressure 78 mm[Hg] Dr. Ezequiel Yoo MD Work Phone: [facility] 05-19-2025 10:41-0400 Heart rate 61 /min Dr. Ezequiel Yoo MD Work Phone: [facility] 05-19-2025 10:41-0400 Respiratory rate 16 /min Dr. Ezequiel Yoo MD Work Phone: [facility] 05-19-2025 10:41-0400 SaO2% (BldA) [Mass fraction] 97 % Dr. Ezequiel Yoo MD Work Phone: [facility] 05-19-2025 10:41-0400 Systolic blood pressure 128 mm[Hg] Dr. Ezequiel Yoo MD Work Phone: [facility] 01-14-2025 14:39-0500 Body height 167.[address] Ezequiel Yoo MD Work Phone: [facility] 01-14-2025 14:39-0500 Body mass index (BMI) [Ratio] 30.8 kg/m2 Dr. Ezequiel Yoo MD Work Phone: [facility] 01-14-2025 14:39-0500 Body temperature 97.6 [degF] Dr. Ezequiel Yoo MD Work Phone: [facility] 01-14-2025 14:39-0500 Body weight 86.[address] Ezequiel Yoo MD Work Phone: [facility] 01-14-2025 14:39-0500 Diastolic blood pressure 78 mm[Hg] Dr. Ezequiel Yoo MD Work Phone: [facility] 01-14-2025 14:39-0500 Heart rate 67 /min Dr. Ezequiel Yoo MD Work Phone: [facility] 01-14-2025 14:39-0500 Respiratory rate 16 /min Dr. Ezequiel Yoo MD Work Phone: [facility] 01-14-2025 14:39-0500 SaO2% (BldA) [Mass fraction] 96 % Dr. Ezequiel Yoo MD Work Phone: [facility] 01-14-2025 14:39-0500 Systolic blood pressure 118 mm[Hg] Dr. Ezequiel Yoo MD Work Phone: [facility] 01-08-2025 09:03-0500 Body mass index (BMI) [Ratio] 30.7 kg/m2 Dr. Ezequiel Yoo MD Work Phone: [facility] 01-08-2025 09:03-0500 Body weight 86.[address] Ezequiel Yoo MD Work Phone: [facility] 01-08-2025 09:03-0500 Diastolic blood pressure 81 mm[Hg] Dr. Ezequiel Yoo MD Work Phone: [facility] 01-08-2025 09:03-0500 Heart rate 73 /min Dr. Ezequiel Yoo MD Work Phone: [facility] 01-08-2025 09:03-0500 Respiratory rate 16 /min Dr. Ezequiel Yoo MD Work Phone: [facility] 01-08-2025 09:03-0500 Systolic blood pressure 136 mm[Hg] Dr. Ezequiel Yoo MD Work Phone: [facility] 01-06-2024 07:06-0500 Body height 167.[address] Ezequiel Yoo Work Phone: [facility] 01-06-2024 07:06-0500 Body weight 85.[address] Ezequiel Yoo Work Phone: [facility] 01-03-2024 09:40-0500 Body mass index (BMI) [Ratio] 30.4 kg/m2 Dr. Ezequiel Yoo Work Phone: [facility] 12-18-2023 10:53-0500 Body mass index (BMI) [Ratio] 30.4 kg/m2 Dr. Ezequiel oYo Work Phone: [facility] 12-18-2023 10:53-0500 Body weight 85.[address] Ezequiel Yoo Work Phone: [facility] 12-18-2023 10:53-0500 Diastolic blood pressure 77 mm[Hg] Dr. Ezequiel Yoo Work Phone: [facility] 12-18-2023 10:53-0500 Heart rate 77 /min Dr. Ezequiel Yoo Work Phone: [facility] 12-18-2023 10:53-0500 Respiratory rate 18 /min Dr. Ezequiel Yoo Work Phone: [facility] 12-18-2023 10:53-0500 SaO2% (BldA) [Mass fraction] 92 % Dr. Ezequiel Yoo Work Phone: [facility] 12-18-2023 10:53-0500 Systolic blood pressure 124 mm[Hg] Dr. Ezequiel Yoo Work Phone: [facility] 04-29-2023 07:46-0400 Body height 167.[address] Ezequiel Yoo Work Phone: [facility] 04-29-2023 07:46-0400 Body mass index (BMI) [Ratio] 29.7 kg/m2 Dr. Ezequiel Yoo Work Phone: [facility] 04-29-2023 07:46-0400 Body temperature 95 [degF] Dr. Ezequiel Yoo Work Phone: [facility] 04-29-2023 07:46-0400 Body weight 83.[address] Ezequiel Yoo Work Phone: [facility] 04-29-2023 07:46-0400 Diastolic blood pressure 72 mm[Hg] Dr. Ezequiel Yoo Work Phone: [facility] 04-29-2023 07:46-0400 Heart rate 67 /min Dr. Ezequiel Yoo Work Phone: [facility] 04-29-2023 07:46-0400 Respiratory rate 18 /min Dr. Ezequiel Yoo Work Phone: [facility] 04-29-2023 07:46-0400 SaO2% (BldA) [Mass fraction] 99 % Dr. Ezequiel Yoo Work Phone: [facility] 04-29-2023 07:46-0400 Systolic blood pressure 124 mm[Hg] Dr. Ezequiel Yoo Work Phone: [facility] 01-18-2023 14:15-0500 Body height 167.[address] Ezequiel Yoo Work Phone: [facility] 01-18-2023 14:15-0500 Body mass index (BMI) [Ratio] 31.8 kg/m2 Dr. Ezequiel Yoo Work Phone: [facility] 01-18-2023 14:15-0500 Body temperature 97.9 [degF] Dr. Ezequiel Yoo Work Phone: [facility] 01-18-2023 14:15-0500 Body weight 89.[address] Ezequiel Yoo Work Phone: [facility] 01-18-2023 14:15-0500 Diastolic blood pressure 76 mm[Hg] Dr. Ezequiel Yoo Work Phone: [facility] 01-18-2023 14:15-0500 Heart rate 69 /min Dr. Ezequiel Yoo Work Phone: [facility] 01-18-2023 14:15-0500 Respiratory rate 18 /min Dr. Ezequiel Yoo Work Phone: [facility] 01-18-2023 14:15-0500 SaO2% (BldA) [Mass fraction] 94 % Dr. Ezequiel Yoo Work Phone: [facility] 01-18-2023 14:15-0500 Systolic blood pressure 122 mm[Hg] Dr. Ezequiel Yoo Work Phone: [facility] 01-11-2023 14:27-0500 Body mass index (BMI) [Ratio] 31.9 kg/m2 Dr. Ezequiel Yoo Work Phone: [facility] 01-11-2023 14:27-0500 Body weight 89.[address] Ezequiel Yoo Work Phone: [facility] 01-11-2023 14:27-0500 Diastolic blood pressure 65 mm[Hg] Dr. Ezequiel Yoo Work Phone: [facility] 01-11-2023 14:27-0500 Heart rate 64 /min Dr. Ezequiel Yoo Work Phone: [facility] 01-11-2023 14:27-0500 Respiratory rate 16 /min Dr. Ezequiel Yoo Work Phone: [facility] 01-11-2023 14:27-0500 Systolic blood pressure 106 mm[Hg] Dr. Ezequiel Yoo Work Phone: [facility] 06-11-2022 09:22-0400 Body height 167.[address] Ezequiel Yoo Work Phone: [facility] Work Phone: 06-11-2022 09:22-0400 Body mass index (BMI) [Ratio] 30.7 kg/m2 Dr. Ezequiel Yoo Work Phone: [facility] Work Phone: 06-11-2022 09:22-0400 Body temperature 97.8 [degF] Dr. Ezequiel Yoo Work Phone: [facility] Work Phone: 06-11-2022 09:22-0400 Body weight 86.[address] Ezequiel Yoo Work Phone: [facility] Work Phone: 06-11-2022 09:22-0400 Diastolic blood pressure 78 mm[Hg] Dr. Ezequiel Yoo Work Phone: [facility] Work Phone: 06-11-2022 09:22-0400 Heart rate 70 /min Dr. Ezequiel Yoo Work Phone: [facility] Work Phone: 06-11-2022 09:22-0400 Respiratory rate 16 /min Dr. Ezequiel Yoo Work Phone: [facility] Work Phone: 06-11-2022 09:22-0400 SaO2% (BldA) [Mass fraction] 70 % Dr. Ezequiel Yoo Work Phone: [facility] Work Phone: 06-11-2022 09:22-0400 Systolic blood pressure 120 mm[Hg] Dr. Ezequiel Yoo Work Phone: [facility] Work Phone: 06-06-2022 14:20-0400 Body temperature 98.5 [degF] Dr. Ezequiel Yoo Work Phone: [facility] Work Phone: 06-06-2022 14:20-0400 Diastolic blood pressure 82 mm[Hg] Dr. Ezequiel Yoo Work Phone: [facility] Work Phone: 06-06-2022 14:20-0400 Heart rate 84 /min Dr. Ezequiel Yoo Work Phone: [facility] Work Phone: 06-06-2022 14:20-0400 Respiratory rate 16 /min Dr. Ezequiel Yoo Work Phone: [facility] Work Phone: 06-06-2022 14:20-0400 SaO2% (BldA) [Mass fraction] 97 % Dr. Ezequiel Yoo Work Phone: [facility] Work Phone: 06-06-2022 14:20-0400 Systolic blood pressure 120 mm[Hg] Dr. Ezequiel Yoo Work Phone: [facility] Work Phone: 06-06-2022 10:00-0400 Inhaled oxygen flow rate 2 L/min Dr. Ezequiel Yoo Work Phone: [facility] Work Phone: 06-06-2022 06:10-0400 Body mass index (BMI) [Ratio] 30.7 kg/m2 Dr. Ezequiel Yoo Work Phone: [facility] Work Phone: 06-06-2022 06:10-0400 Body weight 86.[address] Ezequiel Yoo Work Phone: [facility] Work Phone: 06-06-2022 00:40-0400 Body temperature 98.6 [degF] Dr. Ezequiel Yoo Work Phone: [facility] Work Phone: 06-06-2022 00:40-0400 Diastolic blood pressure 82 mm[Hg] Dr. Ezequiel Yoo Work Phone: [facility] Work Phone: 06-06-2022 00:40-0400 Heart rate 83 /min Dr. Ezequiel Yoo Work Phone: [facility] Work Phone: 06-06-2022 00:40-0400 Inhaled oxygen flow rate 2 L/min Dr. Ezequiel Yoo Work Phone: [facility] Work Phone: 06-06-2022 00:40-0400 Respiratory rate 15 /min Dr. Ezequiel Yoo Work Phone: [facility] Work Phone: 06-06-2022 00:40-0400 SaO2% (BldA) [Mass fraction] 98 % Dr. Ezequiel Yoo Work Phone: [facility] Work Phone: 06-06-2022 00:40-0400 Systolic blood pressure 115 mm[Hg] Dr. Ezequiel Yoo Work Phone: [facility] Work Phone: 06-05-2022 20:59-0400 Body height 167.[address] Ezequiel Yoo Work Phone: [facility] Work Phone: 06-05-2022 20:59-0400 Body mass index (BMI) [Ratio] 31.1 kg/m2 Dr. Ezequiel Yoo Work Phone: [facility] Work Phone: 06-05-2022 20:59-0400 Body weight 87.[address] Ezequiel Yoo Work Phone: [facility] Work Phone: 05-30-2022 08:39-0400 Body height 170.[address] Ezequiel Yoo Work Phone: [facility] Work Phone: 05-30-2022 08:39-0400 Body mass index (BMI) [Ratio] 30.7 kg/m2 Dr. Ezequiel Yoo Work Phone: [facility] Work Phone: 05-30-2022 08:39-0400 Body temperature 97.7 [degF] Dr. Ezequiel Yoo Work Phone: [facility] Work Phone: 05-30-2022 08:39-0400 Body weight 88.[address] Ezequiel Yoo Work Phone: [facility] Work Phone: 05-30-2022 08:39-0400 Diastolic blood pressure 72 mm[Hg] Dr. Ezequiel Yoo Work Phone: [facility] Work Phone: 05-30-2022 08:39-0400 Heart rate 76 /min Dr. Ezequiel Yoo Work Phone: [facility] Work Phone: 05-30-2022 08:39-0400 Respiratory rate 14 /min Dr. Ezequiel Yoo Work Phone: [facility] Work Phone: 05-30-2022 08:39-0400 SaO2% (BldA) [Mass fraction] 96 % Dr. Ezequiel Yoo Work Phone: [facility] Work Phone: 05-30-2022 08:39-0400 Systolic blood pressure 110 mm[Hg] Dr. Ezequiel Yoo Work Phone: [facility] Work Phone: 10-01-2017 09:33-0500 BMI (Body Mass Index) 31.79 kg/m2 [facility] Work Phone: 10-01-2017 09:33-0500 BP Diastolic 50 mm[Hg] [facility] Work Phone: 10-01-2017 09:33-0500 BP Systolic 100 mm[Hg] Hoda Carmona [facility] Work Phone: 10-01-2017 09:33-0500 Height 170.18 cm [facility] Work Phone: 10-01-2017 09:33-0500 Pulse (Heart Rate) 76 /min Hoda Carmona [facility] Work Phone: 10-01-2017 09:33-0500 Respiratory Rate 20 /min [facility] Work Phone: 10-01-2017 09:33-0500 Weight 92.08 kg [facility] Work Phone: 01-11-2017 10:10-0500 BMI (Body Mass Index) 31.6 kg/m2 Haryi Vazquez [facility] Work Phone: 01-11-2017 10:10-0500 BP Diastolic 62 mm[Hg] Harumi DeFinis [facility] Work Phone: 01-11-2017 10:10-0500 BP Diastolic 74 mm[Hg] Harumi DeFinis [facility] Work Phone: 01-11-2017 10:10-0500 BP Diastolic 70 mm[Hg] Harumi DeFinis [facility] Work Phone: 01-11-2017 10:10-0500 BP Systolic 108 mm[Hg] Harumi DeFinis [facility] Work Phone: 01-11-2017 10:10-0500 BP Systolic 110 mm[Hg] Harumi DeFinis [facility] Work Phone: 01-11-2017 10:10-0500 BSA (Body Surface Area) 2.03 m2 Harumi DeFinis [facility] Work Phone: 01-11-2017 10:10-0500 Pulse (Heart Rate) 64 /min Harumi DeFinis [facility] Work Phone: 01-11-2017 10:10-0500 Pulse (Heart Rate) 68 /min Harumi DeFinis [facility] Work Phone: 01-11-2017 10:10-0500 Pulse (Heart Rate) 70 /min Haryi Vazquez [facility] Work Phone: 01-11-2017 10:10-0500 Pulse Oximetry 96 % [facility] Work Phone: 01-11-2017 10:10-0500 Respiratory Rate 20 /min Haryi Vazquez [facility] Work Phone: 01-11-2017 10:10-0500 Weight 91.54 kg Haryi Vazquez [facility] Work Phone: 09-28-2016 13:58-0500 Height 170.18 cm Jamil Vazquez [facility] Work Phone: Encounters Encounter Date Encounter Type Care Provider Facility Start: 05-19-2025 End: 05-19-[address] Ezequiel Yoo MD Work Phone: -[facility] Start: 05-19-2025 End: 05-19-[address] Ezequiel Yoo MD -[facility] Work Phone: Start: 01-14-2025 End: 01-14-[address] Ezequiel Yoo MD -[facility] Work Phone: Start: 01-14-2025 End: 01-14-2025 ambulatory [facility] Start: 01-14-2025 End: 01-14-2025 [facility] Start: 01-08-2025 End: 01-08-2025 Patient encounter procedure Anuel Lazcano PERIODICALS LIBRARY ASSISTANT-C -[facility] Work Phone: Start: 01-08-2025 End: 01-08-2025 ambulatory Anuel Lazcano NP Facility[facility] Start: 08-31-2024 End: 08-31-2024 ambulatory [facility] Facility[facility] Start: 06-10-2024 End: 06-10-2024 ambulatory Ingrid Blankenship NP Facility:[facility] Start: 06-02-2024 End: 06-02-2024 ambulatory Ezequiel Yoo Facility:[facility] Start: 04-17-2024 End: 04-17-2024 ambulatory Ezequiel Yoo Facility:[facility] Start: 01-06-2024 End: 01-06-2024 Admission to same day surgery center Dr. Ezequiel Yoo Work Phone: [facility]-Cabinetmaker Supervisor/Special Procedures Work Phone: Start: 01-06-2024 End: 01-06-[address] Ezequiel Yoo Work Phone: [facility] Work Phone: Start: 12-18-2023 End: 12-18-[address] Ezequiel Yoo Work Phone: [facility] Work Phone: Start: 04-29-2023 End: 04-29-[address] Ezequiel Yoo Work Phone: [facility] Work Phone: Start: 04-29-2023 End: 04-29-[address] Ezequiel Yoo Work Phone: [facility] Start: 02-11-2023 Non-patient / Non-visit Dr. Gisselle Yoo Work Phone: [facility] Start: 02-11-[address] [facility] Start: 02-01-2023 Non-patient / Non-visit Dr. Gisselle Yoo Work Phone: [facility] Start: 02-01-2023 End: 02-01-[address] Ezequiel Yoo Work Phone: [facility] Work Phone: Start: 02-01-2023 End: 02-01-[address] Ezequiel Yoo Work Phone: [facility] Start: 01-18-2023 End: 01-18-[address] Ezequiel Yoo Work Phone: [facility] Work Phone: Start: 01-18-2023 End: 01-18-[address] Ezequiel Yoo Work Phone: [facility]-Laboratory, [place] Start: 01-18-2023 End: 01-18-[address] Ezequiel Yoo Work Phone: [facility] Start: 01-11-[address] Ezequiel Yoo Work Phone: [facility] Comment on above: Cataract surgery nex t monthDr. Chacon Start: 01-11-2023 End: 01-11-2023 Admission to same day surgery center Dr. Ezequiel Yoo Work Phone: [facility] Start: 01-11-2023 End: 01-11-[address] Ezequiel Yoo Work Phone: [facility] Start: 06-25-2022 End: 06-25-[address] Ezequiel Yoo Work Phone: [facility] Start: 06-11-2022 End: 06-11-[address] Ezequiel Yoo Work Phone: [facility] Start: 06-06-2022 Non-patient / Non-visit Dr. Gisselle Yoo Work Phone: [facility] Start: 06-05-2022 Non-patient / Non-visit Dr. Gisselle Yoo Work Phone: [facility] Start: 06-05-2022 End: 06-06-2022 Evaluation and management of inpatient Dr. Ezequiel Yoo Work Phone: [facility]-Progressive Care Unit Start: 05-30-2022 End: 05-30-[address] Ezequiel Yoo Work Phone: [facility] Procedures Date Procedure Procedure Detail [...] Yoo Work Phone: Start: 10-01-2017 End: 10-01-2017 TRAFFIC OFFICER Luigi Quintanilla MD Start: 10-01-2017 End: 10-01-2017 Follow Up Appt 1 year Luigi Quintanilla MD Start: 01-18-2017 End: 10-01-2017 Stress Echocardiogram (treadmill) Beatrice Barry NP Work Phone: Start: 01-11-2017 End: 01-14-2017 *BMP Beatrice Barry PERIODICALS LIBRARY ASSISTANT Work Phone: Start: 01-11-2017 End: 01-11-2017 *CBC with Differential Beatrice Barry PERIODICALS LIBRARY ASSISTANT Work Phone: Start: 01-11-2017 End: 10-01-2017 Carotid duplex Beatrice Barry NP Work Phone: Start: 01-11-2017 End: 01-11-2017 Follow Up Appt Other Beatrice Barry PERIODICALS LIBRARY ASSISTANT Work Phone: Start: 01-11-2017 End: 01-14-2017 Magnesium [Mass/volume] in Serum or Plasma Beatrice Barry PERIODICALS LIBRARY ASSISTANT Work Phone: Start: 01-11-2017 End: 01-11-2017 MMM Beatrice Barry PERIODICALS LIBRARY ASSISTANT Work Phone: Start: 01-11-2017 End: 01-14-2017 Thyrotropin [Units/volume] in Serum or Plasma Beatrice Barry PERIODICALS LIBRARY ASSISTANT Work Phone: Start: 01-11-2017 End: 01-14-2017 Thyroxine (T4) [Mass/volume] in Serum or Plasma Beatrice Barry PERIODICALS LIBRARY ASSISTANT Work Phone: Start: 01-11-2017 End: 01-14-2017 *BMP Beatrice Barry PERIODICALS LIBRARY ASSISTANT Work Phone: Start: 01-11-2017 End: 01-11-2017 *CBC with Differential Beatrice Barry PERIODICALS LIBRARY ASSISTANT Work Phone: Start: 01-11-2017 End: 01-11-2017 Follow Up Appt Other Beatrice Barry PERIODICALS LIBRARY ASSISTANT Work Phone: Start: 01-11-2017 End: 01-14-2017 Magnesium Beatrice Barry PERIODICALS LIBRARY ASSISTANT Work Phone: Start: 01-11-2017 End: 01-11-2017 MMM Beatrice Barry PERIODICALS LIBRARY ASSISTANT Work Phone: Start: 01-11-2017 End: 01-14-2017 Thyroid stimulating hormone (TSH) Beatrice Barry PERIODICALS LIBRARY ASSISTANT Work Phone: Start: 01-11-2017 End: 01-14-2017 Thyroxine (T4) Beatrice Barry PERIODICALS LIBRARY ASSISTANT Work Phone: Start: 09-28-2016 End: 09-28-2016 JALEN Quintanilla MD Start: 09-28-2016 End: 09-28-2016 Follow Up Appt 1 year Luigi Quintanilla MD Start: 09-28-2016 End: 09-28-2016 TRAFFIC OFFICERJaime Quintanilla MD Start: 09-28-2016 End: 09-28-2016 Follow Up Appt 1 year Luigi Quintanilla MD Start: 02-28-2016 End: 02-28-2016 JALEN Mota PA-C Work Phone: Start: 02-28-2016 End: 02-28-2016 Ecg routine ecg w/least 12 lds w/i&r Ksenia Mota PA-C Work Phone: Start: 02-28-2016 End: 02-28-2016 Follow Up Appt 6 months Ksenia oliver PA-C Work Phone: Start: 02-28-2016 End: 02-28-2016 TRAFFIC OFFICER Ksenia Mota PA-C Work Phone: Start: 02-28-2016 [...] Luigi Quintanilla MD Start: 10-26-2013 End: 10-26-2013 TRAFFIC OFFICER Ksenia Mota PA-C Work Phone: Start: 10-26-2013 End: 10-26-2013 Follow Up Appt 6 months Ksenia oliver PA-C Work Phone: Start: 10-26-2013 End: 10-26-2013 TRAFFIC OFFICER Ksenia Mota PA-C Work Phone: Start: 10-26-2013 [...] Activity Detail Author Start: 01-06-2024 Patient discharge [facility] Start: 06-06-2022 Patient discharge [facility] Work Phone: Start: 06-06-2022 Following clinical pathway protocol [facility] Work Phone: Start: 06-06-2022 Care regimes management [facility] Work Phone: Start: 06-06-2022 Incentive spirometry [facility] Work Phone: Start: 06-06-2022 Insertion of catheter into peripheral vein [facility] Work Phone: Start: 06-06-2022 Notification of physician [facility] Work Phone: Start: 06-06-2022 Oxygen therapy [facility] Work Phone: Start: 06-06-2022 Providing care according to standard [facility] Work Phone: Start: 06-06-2022 Provision of activity privileges [facility] Work Phone: Start: 06-06-2022 [facility] Work Phone: Start: 06-06-2022 Patient referral to dietitian [facility] Work Phone: Start: 06-05-2022 Verification routine [facility] Work Phone: Start: 06-05-2022 Admission procedure [facility] Work Phone: Start: 06-05-2022 Blood culture [facility] Work Phone: Start: 06-05-2022 [facility] Work Phone: Start: 10-02-2018 End: 10-02-2018 Appointment Appointment [facility] Work Phone: Start: 10-01-2017 End: 10-01-2017 TRAFFIC OFFICER TRAFFIC OFFICER [facility] Work Phone: Start: 10-01-2017 End: 10-01-2017 Follow Up Appt 1 year Follow Up Appt 1 year [facility] Work Phone: Start: 10-01-2017 End: 10-01-2017 Appointment Appointment [facility] Work Phone: Start: 10-01-2017 End: 10-01-2017 Appointment Appointment [facility] Work Phone: Start: 01-18-2017 End: 01-18-2017 Stress Echocardiogram (treadmill) Stress Echocardiogram (treadmill) [facility] Work Phone: Start: 01-18-2017 End: 01-18-2017 Stress Echocardiogram (treadmill) Stress Echocardiogram (treadmill) [facility] Work Phone: Start: 01-11-2017 End: 01-14-2017 *BMP *BMP [facility] Work Phone: Start: 01-11-2017 End: 01-11-2017 *CBC with Differential *CBC with Differential [facility] Work Phone: Start: 01-11-2017 End: 01-11-2017 Carotid duplex Carotid duplex [facility] Work Phone: Start: 01-11-2017 End: 01-11-2017 Follow Up Appt Other Follow Up Appt Other [facility] Work Phone: Start: 01-11-2017 End: 01-14-2017 Magnesium *Magnesium [facility] Work Phone: Start: 01-11-2017 End: 01-11-2017 MMM MMM [facility] Work Phone: Start: 01-11-2017 End: 01-17-2017 Nuclear stress test -exercise Nuclear stress test -exercise [facility] Work Phone: Start: 01-11-2017 End: 01-14-2017 Thyroid stimulating hormone (TSH) *TSH [facility] Work Phone: Start: 01-11-2017 End: 01-14-2017 Thyroxine (T4) *T4 (Total) [facility] Work Phone: Start: 01-11-2017 End: 01-14-2017 *BMP *BMP [facility] Work Phone: Start: 01-11-2017 End: 01-11-2017 *CBC with Differential *CBC with Differential [facility] Work Phone: Start: 01-11-2017 End: 01-11-2017 Carotid duplex Carotid duplex [facility] Work Phone: Start: 01-11-2017 End: 01-11-2017 Follow Up Appt Other Follow Up Appt Other [facility] Work Phone: Start: 01-11-2017 End: 01-14-2017 Magnesium *Magnesium [facility] Work Phone: Start: 01-11-2017 End: 01-11-2017 MMM MMM [facility] Work Phone: Start: 01-11-2017 End: 01-17-2017 Nuclear stress test -exercise Nuclear stress test -exercise [facility] Work Phone: Start: 01-11-2017 End: 01-14-2017 Thyroid stimulating hormone (TSH) *TSH [facility] Work Phone: Start: 01-11-2017 End: 01-14-2017 Thyroxine (T4) *T4 (Total) [facility] Work Phone: Start: 09-28-2016 End: 09-28-2016 TRAFFIC OFFICER TRAFFIC OFFICER [facility] Work Phone: Start: 09-28-2016 End: 09-28-2016 Follow Up Appt 1 year Follow Up Appt 1 year [facility] Work Phone: Start: 09-28-2016 End: 09-28-2016 TRAFFIC OFFICER TRAFFIC OFFICER [facility] Work Phone: Start: 09-28-2016 End: 09-28-2016 Follow Up Appt 1 year Follow Up Appt 1 year [facility] Work Phone: Start: 02-28-2016 End: 02-28-2016 TRAFFIC OFFICER TRAFFIC OFFICER [facility] Work Phone: Start: 02-28-2016 End: 02-28-2016 Ecg routine ecg w/least 12 lds w/i&r EKG (In office) [facility] Work Phone: Start: 02-28-2016 End: 02-28-2016 Follow Up Appt 6 months Follow Up Appt 6 months [facility] Work Phone: Start: 02-28-2016 End: 02-28-2016 TRAFFIC OFFICER TRAFFIC OFFICER [facility] Work Phone: Start: 02-28-2016 [...] Phone: Start: 08-19-2015 End: 08-19-2015 MMM MMM [facility] Work Phone: Start: 08-19-2015 End: 08-19-2015 Follow Up Appt 6 months Follow Up Appt 6 months [facility] Work Phone: Start: 08-19-2015 End: 08-19-2015 MMM MMM [facility] Work Phone: Start: 11-22-2014 End: 11-22-2014 TRAFFIC OFFICER TRAFFIC OFFICER [facility] Work Phone: Start: 11-22-2014 End: 11-22-2014 Follow Up Appt 6 months Follow Up Appt 6 months [facility] Work Phone: Start: 11-22-2014 End: 11-22-2014 TRAFFIC OFFICER TRAFFIC OFFICER [facility] Work Phone: Start: 11-22-2014 End: 11-22-2014 Follow Up Appt 6 months Follow Up Appt 6 months [facility] Work Phone: Start: 07-20-2014 End: 07-21-2014 *BMP *BMP [facility] Work Phone: Start: 07-20-2014 End: 07-21-2014 CBC W Auto Differential panel - Blood *CBC without Diff [facility] Work Phone: Start: 07-20-2014 End: 07-29-2014 Chest x-ray X-Ray, Chest, PA & Lateral [facility] Work Phone: Start: 07-20-2014 End: 07-21-2014 Ecg routine ecg w/least 12 lds w/i&r EKG (In office) [facility] Work Phone: Start: 07-20-2014 End: 07-21-2014 Echocardiography Echocardiogram (complete) [facility] Work Phone: Start: 07-20-2014 End: 08-19-2015 Follow Up Appt 3 months Follow Up Appt 3 months [facility] Work Phone: Start: 07-20-2014 End: 07-21-2014 INR Coag RelTime (PPP) *PT/INR [facility] Work Phone: Start: 07-20-2014 End: 07-21-2014 Left Heart Cath Left Heart Cath [facility] Work Phone: Start: 07-20-2014 End: 08-19-2015 MMM MMM [facility] Work Phone: Start: 07-20-2014 End: 07-21-2014 *BMP *BMP [facility] Work Phone: Start: 07-20-2014 End: 07-21-2014 CBC W Auto Differential panel - Blood *CBC without Diff [facility] Work Phone: Start: 07-20-2014 End: 07-29-2014 Chest x-ray X-Ray, Chest, PA & Lateral [facility] Work Phone: Start: 07-20-2014 End: 07-21-2014 Coagulation factor induced.INR assay in platelet poor plasma *PT/INR [facility] Work Phone: Start: 07-20-2014 End: 07-21-2014 Echocardiography Echocardiogram (complete) [facility] Work Phone: Start: 07-20-2014 End: 07-21-2014 Electrocardiogram, complete EKG (In office) [facility] Work Phone: Start: 07-20-2014 End: 08-19-2015 Follow Up Appt 3 months Follow Up Appt 3 months [facility] Work Phone: Start: 07-20-2014 End: 07-21-2014 Left Heart Cath Left Heart Cath [facility] Work Phone: Start: 07-20-2014 End: 08-19-2015 MMM MMM [facility] Work Phone: Start: 10-26-2013 End: 10-26-2013 TRAFFIC OFFICER JALEN [facility] Work Phone: Start: 10-26-2013 End: 10-26-2013 Follow Up Appt 6 months Follow Up Appt 6 months [facility] Work Phone: Start: 10-26-2013 End: 10-26-2013 TRAFFIC OFFICER JALEN [facility] Work Phone: Start: 10-26-2013 End: 10-26-2013 Follow Up Appt 6 months Follow Up Appt 6 months [facility] Work Phone: Start: 08-18-2013 [...] 6 months Follow Up Appt 6 months [facility] Work Phone: Start: 04-28-2013 End: 04-28-2013 MMM MMM [facility] Work Phone: Start: 04-28-2013 End: 04-28-2013 Nuclear stress test -exercise Nuclear stress test -exercise [facility] Work Phone: Start: 04-28-2013 End: 04-28-2013 Follow Up Appt 6 months Follow Up Appt 6 months [facility] Work Phone: Start: 04-28-2013 End: 04-28-2013 MMM MMM [facility] Work Phone: Start: 04-28-2013 End: 04-28-2013 Nuclear stress test -exercise Nuclear stress test -exercise [facility] Work Phone: Start: 03-11-2013 End: 03-13-2013 *Hepatic Function Panel *Hepatic Function Panel [facility] Work Phone: Start: 03-11-2013 End: 03-13-2013 Lipid panel [AGGREGATE] *Lipid Profile [facility] Work Phone: Start: 03-11-2013 End: 03-13-2013 *Hepatic Function Panel *Hepatic Function Panel [facility] Work Phone: Start: 03-11-2013 End: 03-13-2013 Lipid panel [AGGREGATE] *Lipid Profile [facility] Work Phone: Start: 09-15-2012 End: 09-15-2012 Follow Up Appt 6 months Follow Up Appt 6 months [facility] Work Phone: Start: 09-15-2012 [...] 09-10-2012 *Hepatic Function Panel *Hepatic Function Panel [facility] Work Phone: Start: 08-20-2012 End: 09-10-2012 Lipid panel [AGGREGATE] *Lipid Profile [facility] Work Phone: Start: 03-17-2012 End: 03-17-2012 Follow Up Appt 6 months Follow Up Appt 6 months [facility] Work Phone: Start: 03-17-2012 End: 03-17-2012 Follow Up Appt 6 months Follow Up Appt 6 months [facility] Work Phone: Bacteria identified in Blood by Culture Blood Culture [facility] Work Phone: Blood culture [facility] Work Phone: Catheterization of l eft heart [facility] CBC W Auto Different ial panel - Blood [facility] Comprehensive metabo lic 1999 panel - Serum or Plasma [facility] Lipid 1996 panel - S donald or Plasma [facility] Patient referral [facility] Work Phone: Prostate specific an tigen measurement [facility] Radionuclide imaging of perfusion of myocardium under exercise stress [facility] US Heart [facility] Vitamin B12 measurement [facility] XR Chest PA and Lateral [facility] Immunizations Immunization Date Immunization Notes [facility] Provider [facility] Seasonal trivalent influenza vaccine, adjuvanted, preservative free Dr. Ezequiel Yoo MD Work Phone: [facility] 09-06-2023 influenza, injectabl e, quadrivalent, preservative free Dr. Ezequiel Yoo Work Phone: [facility] 09-06-2022 influenza, injectabl e, quadrivalent, preservative free Dr. Ezequiel Yoo Work Phone: [facility] 09-06-2022 influenza, seasonal, injectable Dr. Ezequiel Yoo Work Phone: [facility] 08-29-2020 influenza, injectabl e, quadrivalent, preservative free Dr. Ezequiel Yoo Work Phone: [facility] 08-29-2020 influenza, seasonal, injectable Dr. Ezequiel Yoo Work Phone: [facility] 08-28-2019 tetanus toxoid, redu ayanna diphtheria toxoid, and acellular pertussis vaccine, adsorbed Dr. Ezequiel Yoo Work Phone: [facility] 09-23-2018 pneumococcal conjuga te vaccine, [address] Ezequiel Yoo Work Phone: [facility] Payers Date Payer Category Payer Self-pay [id number] 2013 Medicare [id number] 2012 Unknown [id number] Unknown [id number] [id number] Unknown [id number] [id number] Unknown [id number] [id number] Unknown [id number] [id number] Unknown [id number] [id number] Unknown [id number] [id number] Unknown [id number] [id number] Social History Date Type Detail Facility Start: 05-30-2022 End: 01-06-2024 Tobacco smoking status NHIS Unknown if ever smoked [facility] Start: 1945 Sex Assigned At Male [facility] Start: 01-08-2025 Tobacco smoking stat us TNIS Ex-smoker (finding) [facility] Start: 01-27-2025 Sex Male (finding) [facility] Medical Equipment Procedure Code Equipment Code Equipment Origin al Text Equipment Identifier Dates Blood Sugar Diagnostic (Freestyle Lite Strips) strip Start: 08-31-2024 Lancets (Freesty le Lancets) 28 gauge misc Start: 08-31-2024 Blood Sugar Diagnostic (Freestyle Lite Strips) strip Start: 08-31-2024 Lancets (Freesty le Lancets) 28 gauge [facility] Start: 08-31-2024 Goals Date Patient Goal Desired Activity /State Functional Status Date Assessment Result Facility 06-06-2022 Functional status Activity Ability Indepe ndent [facility] Work Phone: Mental Status Date Assessment Result Facility 06-06-2022 Cognitive function Appropriate;Joyce ventura [facility] Work Phone: 06-06-2022 Cognitive function Voice/Name [facility] Work Phone: Evaluation note 01-08-2025 Note Date & Type Note Facility 01-08-2025 Evaluation note Diagnosis Onset Date Resolution 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 January 08, 2 025 8:50am Essential (primary) hypertension chronic January 08, 2 025 8:50am Heart failure with reduced ejection fraction chronic 2024 8:50am Hyperlipemia chronic December 8:50am Type 2 diabetes mellitus chronic January 08, 2025 8:50am Essential (primary) hypertension chronic January 14, 2 025 2:28pm Hyperlipemia chronic December 2:28pm Type 2 diabetes mellitus chronic January 14, 2025 2:28pm [facility] Work Phone: Evaluation note 07-01-1990 Note Date & Type Note Facility 07-01-1990 Evaluation note Diagnosis Onset Date Bilateral foot pain chronic Hyperlipemia chronic COVID-19 acute History of coronary angioplasty July 01, 1990 resolved COVID-19 acute [facility] Work Phone: Evaluation note Note Date & Type Note Facility Evaluation note Diagnosis Onset Date Bilateral foot pain chronic Essential (primary) hypertension chronic Hyperlipemia chronic Type 2 diabetes mellitus [facility] Work Phone: Evaluation note Note Date & Type Note Facility Evaluation note Diagnosis Onset Date Preop cardiovascular exam [place] 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 Hyperlipemia chronic 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[place] Essential (primary) hypertension chronic Type 2 diabetes mellitus chr [facility] Work Phone: Evaluation note Note Date & Type Note Facility Evaluation note Diagnosis Onset Date Preop cardiovascular exam [place] 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 Hyperlipemia chronic 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[place] Essential (primary) hypertension chronic Type 2 diabetes mellitus chr onic Bilateral impacted cerumen a cute Essential (primary) hypertension chronic Type 2 diabetes mellitus chr onic [facility] Work Phone: Evaluation note Note Date & Type Note Facility Evaluation note Diagnosis Onset Date 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 Hyperlipemia chronic [facility] Work Phone: Evaluation note Note Date & Type Note Facility Evaluation note No assessment information availa [facility] Work Phone: Reason for referral (narrative) Note Date & Type Note Facility Reason for referral (narrative) No reason for referral information available [facility] Work Phone: Chief Complaint and Reason [...] cardiovascular exam Atherosclerosis of coronary artery of [place] without angina pectoris Hyperlipemia Coronary artery disease Essential (primary) hypertension Type 2 diabetes mellitus Chief Complaint 1 Y FU 6 M FU CAD/ASHD Reason for Visit Preop cardiovascular exam Atherosclerosis of coronary artery of [place] without angina pectoris Hyperlipemia Coronary artery disease Essential (primary) hypertension Type 2 diabetes mellitus Chief Complaint 1 Y FU 6 M FU CAD/ASHD SCREENING 3 m fu Reason for Visit Preop cardiovascular exam Atherosclerosis of coronary artery of [place] without angina pectoris Hyperlipemia Coronary artery disease Essential (primary) hypertension Type 2 diabetes mellitus Bilateral impacted cerumen Essential (primary) hypertension Type 2 diabetes mellitus Chief Complaint Chest pain, stress i n January 2023 see NN L.L. CP Reason for Visit Atherosclerosis of c oronary artery of [place] heart without angina pectoris Hyperlipemia Chief Complaint Admit Date 6 M FU January 08, 2025 8:50am 4 m fu January 14, 2025 2:28pm Reason for Visit Admit Date Atherosclerosis of coronary artery of [place] heart without angina pectoris January 08, 2025 [...] Will Yes July 23 7:45am Power of Music Composition Teacher Yes July 23, 2021 7:45am Advance Directive Response Recorded Date/ Time Name of Medical Power of Music Composition Teacher Bel parker June 05, 2022 9:20pm Living Will Yes June 05, 2022 9:20pm Power of Music Composition Teacher Yes June 05 9:20pm Advance Directive Response Recorded Date/ Time Name of Medical Power of Music Composition Teacher Danisha Maldonado saturnino June 06, 2022 6:10am Living Will Yes June 06, 2022 6:10am Power of Music Composition Teacher Yes June 06 6:10am Advance Directive Response Recorded Date/ Time Living Will Yes June 06, 2022 5:10am Power of Music Composition Teacher Yes June 06 5:10am Advance Directive Response Recorded Date/ Time Living Will Yes June 06, 2022 6:10am Power of Music Composition Teacher Yes June 06 6:10am Advance Directive Response Recorded Date/ Time Advance Directives on File Yes [place] leyvay 2023 7:06am Name of Medical Power of Music Composition Teacher Missy (Spouse ) January 06, 2024 7:06am Advance Directives Yes December 7:06am Living Will Yes January 06, 024 7:06am Power of Music Composition Teacher Yes January 06, 2024 7:06am Advance Directive Response Recorded Date/ Time Living Will Yes April 17, 2024 9 :25am Power of Music Composition Teacher Yes April 17, 2024 9:25am Advance Directives [...] 2025 End: January 08, 2025 Anuel Lazcano PERIODICALS LIBRARY ASSISTANT, PERIODICALS LIBRARY ASSISTANT-C Attending Provider Active S tart: January 08, [...] section and content) DATE CREATED AUTHOR 01/30/2025 [facility] FOR RECORDS PERTAINING TO PATIENTS WHO ARE [...] BE BASED ON THE PRIMARY CLINICAL RECORDS. [facility]. provides no warranty or guarantee of the accuracy or completeness of information in this document.
[2025-05-20 10:19] LABS: Hematocrit 44.3 % (40-54); Hemoglobin 14.8 g/dL (13.0-16.5); Immature Granulocytes Count 0.030 X10^3/uL (0.0-0.0); Mean Corp Hgb Conc 33.4 g/dL (32-36); Mean Corpuscular Volume 96.3 fL (80-94); Mean Platelet Vol. 11.8 fl (6.2-12.0); NRBC Flagged by Analyzer 0 % (0-5); Platelet Count 190 K/mm3 (150-450); RBC Distribution Width CV 13.6 % (11.6-14.6); RBC Distribution Width SD 48.4 fl (35.1-43.9); Red Blood Count 4.60 M/mm3 (4.6-6.2); White Blood Count 7.5 K/mm3 (4.4-11.0)
[2025-05-20 11:16] LABS: AST(SGOT) 29 U/L (<=37); Alanine Aminotransfer ALT/SGPT 28 U/L (<=46); Albumin, Serum 4.2 g/dL (3.4-4.8); Alkaline Phosphatase 53 U/L (40-129); Anion Gap 11 (5-15); BUN 16 mg/dL (4-19); BUN/Creat Ratio 16.8 RATIO (10-20); Calcium,Total 9.4 mg/dL (7.6-11.0); Carbon Dioxide 24.2 mmol/L (21.0-32.0); Chloride 102 mmol/L (98-108); Cholesterol 147 mg/dL (<=200); Globulin 2.7 g/dL (2.2-4.2); Glucose 145 mg/dL (70-99); Low Density Lipoprotein Calc. 75 mg/dL; Potassium 4.7 mmol/L (3.3-5.1); Triglycerides 113 mg/dL; Very Low Density Lipoprotein 23 mg/dL (5-40); cholesterol:hdl ratio screen 2.99
[2025-05-20 11:44] LABS: PSA,Total - Annual Screen 1.39 ng/mL (0.02-4.00); Vitamin B12 583 pg/mL (180-914)
== END | disposition home or self-care (01) ==
LOC: LAB 07:10
PROVIDERS: PCP Internal Medicine; Referring Provider Internal Medicine; Visit Provider Internal Medicine
DX: E11.69 Type 2 diabetes mellitus with other specified complication (principal); E53.8 Deficiency of other specified B group vitamins; I10 Essential (primary) hypertension; Z12.5 Encounter for screening for malignant neoplasm of prostate
CPT/HCPCS: 36415; 80053; 80061; 82607; 84153; 85025; G0103